=== PATIENT | female | born 1950 | race Caucasian/White ===

== ENCOUNTER → 2017-09-29 | Outpatient (CLI) | payer MEDICARE, MEDICAID, SELFPAY | PROVIDERS: Family Provider Emergency Medicine; Visit Provider Emergency Medicine | DX: Z79.01 Long term (current) use of anticoagulants (principal); I26.99 Other pulmonary embolism without acute cor pulmonale; Z51.81 Encounter for therapeutic drug level monitoring | CPT/HCPCS: 99211; G0463 ==

== ENCOUNTER 2017-10-31 10:14 | Outpatient (CLI) | payer MEDICARE, MEDICAID, SELFPAY ==
[2017-10-31 15:18] LABS: PHA INR Fingerstick 2.1 (0.9-1.1)
== END 2017-10-31 15:41 | disposition home or self-care (01) ==
LOC: ACC 10:19
PROVIDERS: Family Provider Emergency Medicine; PCP Emergency Medicine; Visit Provider Emergency Medicine
DX: I26.99 Other pulmonary embolism without acute cor pulmonale (principal); I82.409 Acute embolism and thrombosis of unspecified deep veins of unspecified lower extremity; Z79.01 Long term (current) use of anticoagulants; Z51.81 Encounter for therapeutic drug level monitoring
CPT/HCPCS: 85610

== ENCOUNTER 2017-12-02 08:21 | Inpatient (IN) | payer MEDICARE, MEDICAID, SELFPAY ==
[2017-12-02] VITALS (15 sets, daily range): BP systolic 116–139; BP diastolic 53–84; PULSE 64–116; RESP 18–26; TEMP 36.6–37.1; O2SAT 84–97; BMI 28.7; BMI 30.6
--- NOTE | 2017-12-02 08:26 | XR_ITS ---
XR chest portable HISTORY: Shortness of air, and cough ITS.REASON: SOA ORDERING PHYSICIAN: Iona Alberto MD PATIENT AGE: 67 years COMPARISON: 07/26/2017 FINDINGS: Mild cardiomegaly without failure. No lobar consolidation or collapse. There are increased markings in both lower lobes probably related to vascular crowding from the portable technique. Cannot exclude underlying infiltrate in the right lung base. Recommend upright PA and lateral chest for further evaluation if the patient tolerates. IMPRESSION: 1. Cardiomegaly without failure. 2. Vascular crowding in the lung bases with possible infiltrate in the right lower lobe. Follow-up recommended with upright PA and lateral chest x-ray.
[2017-12-02 08:40] LABS: Basophils % 0.2 % (0.1-2.0); Eosinophils % 0.1 % (0.1-12.0); Hematocrit 44.4 % (37.0-47.0); Lymphocytes % 5.4 K/mm3 (10-50); Mean Corpuscular HGB Conc 31.6 g/dL (31.8-35.4); Mean Corpuscular Hemoglobin 28.9 pg (27.0-31.2); Mean Corpuscular Volume 91.6 fl (81-99); Mean Platelet Volume 9.2 fl (7.4-10.4); Monocytes # 0.6 K/mm3 (0.1-1.0); Monocytes % 3.5 % (1.7-9.3); Neutrophils # 15.9 K/mm3 (1.8-7.8); Neutrophils % 90.8 % (37.0-80.0); Platelet Count 284 K/mm3 (142-424); Red Blood Count 4.84 M/mm3 (4.20-5.40); Red Cell Distribution Width 14.8 % (11.5-17.5); White Blood Count 17.5 K/mm3 (4.8-10.8)
[2017-12-02 08:45] LABS: MANUAL DIFFERENTIAL MANUAL DIFFERENTIAL (MANUAL DIFF)
--- NOTE | 2017-12-02 08:49 | HMH.EDSOB ---
ED Disposition Clinical Impression: COPD with exacerbation, Chronic obstructive lung disease Disposition: Home, Self-Care Condition on Discharge: Good Instructions: DI for Chronic Obstructive Pulmonary Disease Prescriptions: Albuterol Sulfate [Albuterol 0.083% 2.5mg/3mL neb] 2.5 mg IH Q4HP PRN #30 neb PRN Reason: COPD Amoxicillin/Potassium Clav [Augmentin 875-125 Tablet] 1 tab PO Q12H #20 tab methylPREDNISolone [Medrol] 4 mg PO DAILY #1 tab.ds.pk Referrals: Isaac Chavez MD [Primary Care Provider] - - Critical Care Critical Care Time: No Attestation: On 12/02/17, the high probability of a clinically significant, sudden or life threatening deterioration of the following system(s) required my full and direct attention, intervention and personal management. The time I documented below is in addition to time spent performing reported procedures but includes the following listed in this critical care notation. Medical Decision Making - Medical Records Medical records reviewed: Yes: I reviewed the patient's medical records. Vital Signs: 12/02/17 08:22 12/02/17 09:15 12/02/17 09:22 Temperature 98.2 F 98.3 F Temperature Source Oral Oral Pulse Rate 100 H Pulse Rate [Right Brachial] 116 H 103 H Respiratory Rate 26 H 20 Blood Pressure [Right Arm] 135/84 127/67 Blood Pressure Mean [Right Arm] 101 87 Blood Pressure Source [Right Arm] Automatic Cuff Manual Cuff/ Doppler Blood Pressure Position [Right Arm] Sitting Sitting 02 Sat by Pulse Oximetry 84 L 97 96 Oxygen Delivery Method Room Air Nasal Cannula Nasal Cannula Nasal Cannula Oxygen Flow Rate (LPM) 2 3 - Lab Data Lab results reviewed: Yes: I reviewed the patient's lab results. Lab Results 12/02/17 08:30: WBC 17.5 H, RBC 4.84, Hgb 14.0, Hct 44.4, MCV 91.6, MCH 28.9, MCHC 31.6 L, RDW 14.8, Plt Count 284, MPV 9.2, Neut % (Auto) 90.8 H, Lymph % (Auto) 5.4 L, Crook % (Auto) 3.5, Eos % (Auto) 0.1, Baso % (Auto) 0.2, Neut # (Auto) 15.9 H, Lymph # (Auto) 1.0, Crook # (Auto) 0.6, Eos # (Auto) 0.0, Baso # (Auto) 0.0, Total Counted 100, Neutrophils % (Manual) 91 H, Lymphocytes % (Manual) 7 L, Monocytes % (Manual) 2, Platelet Estimate Normal, RBC Morphology Normal 12/02/17 08:30: Sodium 137, Potassium 4.4, Chloride 102, Carbon Dioxide 27, Anion Gap 12.4, BUN 32 H, Creatinine 1.25 H, Estimated Creat Clear 46, Estimated GFR 42 L, Est GFR ( Amer) 51 L, Glucose 191 H, Calcium 8.8, Total Bilirubin 0.3, AST 23, ALT 38, Alkaline Phosphatase 61, Total Protein 8.2, Albumin 4.2, Globulin 4.0 H, Albumin/Globulin Ratio 1.1 12/02/17 08:43: Lactic Acid 1.9 Result diagrams: 12/02/17 08:30 12/02/17 08:30 Orders (Tests/Meds): ED MEDICATIONS Discontinued Medications Generic Name Dose Route Start Last Admin Trade Name Freq PRN Reason Stop Dose Admin Albuterol/Ipratropium 3 ml 12/02/17 08:55 12/02/17 09:15 Duoneb 3ml Neb IH 12/02/17 08:56 3 ml ONCE ONE Administration Methylprednisolone Sodium Succinate 125 mg 12/02/17 08:55 12/02/17 09:27 Solu-Medrol 125mg/2ml Vial IV 12/02/17 08:56 125 mg ONCE ONE Administration ORDERS Category Date Time Status Blood Culture Stat Micro 12/02/17 08:43 Received - Radiology Data #1 Image(s): Chest Image Reviewed: Yes I reviewed the patient's radiology results, Yes I reviewed the patient's radiology image Preliminary Findings: Abnormal (Medial calcifications not seen on prior, radiology reading requested. PD pattern. Borderline cardiomegaly seen prior) Follow-up 2 view recommended. Patient declines this study today. Results show vascular crowding, perhaps possibility of an infiltrate on the right. - Lyle Inquiry Pt receiving controlled substance: No Medical Decision Making Narrative: Patient oxygenation is now in the mid 90s on her home O2. Resting comfortably. Color is good. No tachypnea. No further wheezing. No further coughing. She feels well enough to go home. Sh
[2017-12-02 08:56] LABS: Alanine Aminotransferase 38 U/L (12-78); Albumin Level 4.2 gm/dL (3.4-5.0); Albumin/Globulin Ratio 1.1 (1.1-1.8); Alkaline Phosphatase 61 U/L (46-116); Anion Gap 12.4 mEq/L (5-15); Aspartate Amino Transferase 23 U/L (15-37); Bilirubin,Total 0.3 mg/dL (0.2-1.0); Blood Urea Nitrogen 32 mg/dL (7-18); Calcium 8.8 mg/dL (8.5-10.1); Carbon Dioxide 27 mmol/L (21.0-32.0); Chloride 102 mmol/L (98-107); Creatinine Clearance Estimated 46 mL/min (0-300); Creatinine,Serum 1.25 mg/dL (0.55-1.02); Estimated Glomerular Filt Rate 42 ml/min (>60); GFR (African American) 51 ML/MIN (>60); Glucose 191 mg/dL (74-106); Potassium 4.4 mmoL/L (3.5-5.1); Sodium 137 mmol/L (136-145); Total Protein,Serum 8.2 gm/dL (6.4-8.2)
[2017-12-02 09:06] LABS: Lactic Acid 1.9 mmol/L (0.4-2.0)
[2017-12-02 09:11] LABS: Lymphocytes % 7 % (10-50); Monocytes % 2 % (2-9); Neutrophils % 91 % (42-76); Platelet Estimate Normal; Total Cells Counted 100
[2017-12-02 09:12] LABS: RBC Morphology Normal
--- NOTE | 2017-12-02 10:35 | PC.NURSE ---
Pt was discharged per ER MD, pt was in a wheelchair being assisted to car by staff accompanied by family. Pt became dyspenic, unable to feel like she could catch her breath. Pt was not on oxygen at this time, pt taken back into ER room to check vital signs, SA02 81% on RA, pt placed on 3L per NC. Pt reported that she has portable oxygen at her home, staff offered for pt to stay in ER room with oxygen on while family go to pt home and her oxygen tank. Pt family stated I think she just needs to be admitted to get her breathing under control. Pt agreed to with her family, ER MD notified and came into room to speak with pt and family, ER MD notified staff that she wishes to admit pt.
[2017-12-02 14:41] LABS: Adenovirus,PCR Not Detected (NotDetected); Bordetella Pertussis Not Detected (NotDetected); Chlamydophila Pneumoniae, PCR Not Detected (NotDetected); Coronavirus 229E Not Detected (NotDetected); Coronavirus NL63 Not Detected (NotDetected); Coronavirus OC43 Not Detected (NotDetected); Coronovirus HKU1,PCR Not Detected (NotDetected); Influenza A, PCR Not Detected (NotDetected); Influenza AH1, 2009 Not Detected (NotDetected); Influenza AH1, PCR Not Detected (NotDetected); Influenza AH3,PCR Not Detected (NotDetected); Influenza B, PCR Not Detected (NotDetected); Mycoplasma Pneumoniae, PCR Not Detected (NotDected); Parainfluenza 1, PCR Not Detected (NotDetected); Parainfluenza 2, PCR Not Detected (NotDetected); Parainfluenza 3, PCR Not Detected (NotDetected); Parainfluenza 4, PCR Not Detected (NotDetected); Respiratory Syncytial Virus Not Detected (NotDetected); Rhinovirus/Enterovirus Not Detected (NotDetected)
[2017-12-02 15:56] LABS: Human Metapneumovirus Detected (NotDetected)
--- NOTE | 2017-12-02 18:57 | PC.NURSE ---
REPORT GIVEN TO JODEE KURTZ RN
--- NOTE | 2017-12-02 21:35 | PC.NURSE ---
PATIENT HAVING PERSISTANT COUGH WITH SOA. SPOKE WITH DR. BENTLEY AT THIS TIME. TORB FOR ROBITUSSIN SYRUP 5 ML EVERY 4-6 HOURS PRN COUGH AND DUONEBS EVERY 1 HOUR PRN SOA. RT NOTIFIED. WILL CONTINUE TO MONITOR.
[2017-12-03] VITALS (15 sets, daily range): BP systolic 109–160; BP diastolic 62–85; PULSE 77–109; RESP 16–91; TEMP 36.5–36.9; O2SAT 78–96
--- NOTE | 2017-12-03 03:00 | PC.NURSE ---
PATIENT YELLING OUT AT THIS TIME. PATIENT WAS SITTING ON SIDE OF BED AND WHEN ASKED WHAT WAS WRONG, SHE STATED THAT SHE WANTED TO GO BACK TO BED. NASAL CANNULA WAS NOTED TO BE ON PATIENT'S FOREHEAD. OXYGEN SATURATION WAS OBTAINED AND WAS FOUND TO BE 78%. NASAL CANNULA REPLACED AND PATIENT ENCOURAGED TO TAKE DEEP, SLOW BREATHS THROUGH NOSE. OXYGEN SAT INCREASED TO 91%. PATIENT REORIENTED. SHE STATED THAT SHE WAS CONFUSED TO WHERE SHE WAS AT AND THAT WAS WHY SHE WAS YELLING OUT. RT CALLED AT THIS TIME FOR PRN NEB TREATMENT. PATIENT ASSISTED TO LAY BACK IN BED WITH HEAD OF BED ELEVATED. WILL CONTINUE TO MONITOR.
--- NOTE | 2017-12-03 08:25 | XR_ITS ---
XR chest 2V COMPARISON: AP upright chest 12/02/2017 HISTORY: Cough TECHNIQUE: PA and lateral chest FINDINGS: Borderline emphysematous changes seen with mild hyperexpansion lung gaspar. Coarse bronchovascular markings are seen in the right infrahilar region and right lower lobe suggestive of a minimal pneumonic infiltrate. The right upper lung field and left lung field are clear. There is mild generalized cardio megaly with aortic tortuosity but there is no evidence of failure. IMPRESSION: Mild COPD, probable right lower lobe bronchopneumonia
--- NOTE | 2017-12-03 08:29 | HMH.HP ---
*Admission Date: 12/02/17 *Chief complaint: cough *History of present illness: this wf with hx of copd and chf with past hx of pe presented to ed with cough and inc resp effort despite op meds and intial rx in ed- by her PCP for days ago, and given a steroid injection. Denies being on a steroid taper. No fever. Cough is nonproductive. She has a chronic umbilical hernia. Vomiting or chest pain. Reports a history of COPD and has recently been placed on a new inhaler per Dr. Chavez, but she cannot recall the name. Dates that she use an albuterol nebulizer treatment just prior to EMS arrival. No further treatment in route. [facility] History I have reviewed the patient's past medical history: Yes Medical History: Reports:: Asthma, Chronic Obstructive Pulmonary Disease (COPD), Hypertension, Pulmonary Embolism Denies:: Diabetes Mellitus Type 1, Diabetes Mellitus Type 2 Other Medical History: Reports: Hypothyroidism Other Surgeries: Yes: Hysterectomy-Total, Other Amputation: No Fractures: No - *Social History Smoking Status: Former smoker Alcohol Intake: never Alcohol Intake Frequency:: other Substance Use Type: denies use Housing: apartment - Psychiatric History Expresses thoughts of harming self/others: None Suicide Plan Description: No Plan *Family Hx:: Heart Attack Review of Systems - Review of Systems Review of systems:: pertinent systems reviewed and negative unless documented below - Constitutional Reports weakness, Denies fever(s) - Eyes Denies change in vision - ENT Reports dry mouth, Denies sore throat - *Cardiovascular Reports shortness of breath, Denies chest pain - *Respiratory Reports cough, Reports shortness of breath, Reports wheezing, Denies coughing up blood - *Gastrointestinal Denies abdominal pain - *Musculoskeletal Denies joint pain, Denies joint swelling - Integumentary/Breasts Denies rash - *Neurologic Denies headache(s) - Psychiatric Denies anxiety Meds Home Medications Medication Instructions Recorded Confirmed Type albuterol sulfate HFA 90 1 puff INHALATION Q6H 11/07/17 12/02/17 History mcg/actuation aerosol inhaler levothyroxine 100 mcg capsule 100 mcg PO DAILY cap 11/07/17 12/02/17 History losartan 100 mg tablet 100 mg PO DAILY 11/07/17 12/02/17 History montelukast 10 mg tablet 10 mg PO QHS 11/07/17 12/02/17 History pravastatin 40 mg tablet 40 mg PO QHS 11/07/17 12/02/17 History spironolactone 25 mg tablet 25 mg PO DAILY 11/07/17 12/02/17 History umeclidinium 62.5 mcg/actuation 1 inh INHALATION Q24H 11/07/17 12/02/17 History blister powder for inhalation Amlodipine Besylate [Norvasc 5mg 5 mg PO DAILY 12/02/17 12/02/17 History tablet] Bisoprol/Hydrochlorothiazide 1 tab PO DAILY 12/02/17 12/02/17 History [Bisoprolol-Hctz 5-6.25 mg Tab] Fluticasone/Umeclidin/Vilanter 1 inh INHALATION ONCE 12/02/17 12/02/17 History [Trelegy Ellipta 100-62.5-25] Omeprazole [Omeprazole 40mg 40 mg PO DAILY 12/02/17 12/02/17 History Capsule] clonazePAM [Klonopin] 0.5 mg PO BID 12/02/17 12/02/17 History Allergies Allergy/AdvReac Type Severity Reaction Status Date / Time lisinopril [LISINOPRIL] Allergy Unknown Verified 12/02/17 08:22 Exam Vital signs and Labs for Last 24 Hours: Temp Pulse Resp BP Pulse Ox 98.2 F 86 22 136/69 96 12/03/17 07:47 12/03/17 07:47 12/03/17 07:47 12/03/17 07:47 12/03/17 07:47 Laboratory Results - last 24 hr 12/02/17 14:15: Chlamy pneumoniae PCR Not detected, Adenovirus (PCR) Not detected, B.parapertussis DNA PCR Not detected, Coronavirus OC43 (PCR) Not detected, Coronavirus HKU1 (PCR) Not detected, Coronavirus 229E (PCR) Not detected, Coronavirus NL63 (PCR) Not detected, Human Metapneumovir PCR Detected A, Influenza A (H1) PCR Not detected, Influ A (H1N1/09) PCR Not detected, Influenza A (H3) PCR Not detected, Influenza Type A (PCR) Not detected, Influenza Type B (PCR) Not detected, M. pneumoniae (PCR) Not
[2017-12-03 09:34] LABS: Anion Gap 12.6 mEq/L (5-15); Blood Urea Nitrogen 32 mg/dL (7-18); Carbon Dioxide 28 mmol/L (21.0-32.0); Chloride 105 mmol/L (98-107); Creatinine Clearance Estimated 62 mL/min (0-300); Creatinine,Serum 0.99 mg/dL (0.55-1.02); Estimated Glomerular Filt Rate 56 ml/min (>60); GFR (African American) 67 ML/MIN (>60); Glucose 225 mg/dL (74-106); Potassium 4.6 mmoL/L (3.5-5.1); Sodium 141 mmol/L (136-145)
--- NOTE | 2017-12-03 10:24 | HMH.PHAVTE ---
[facility] Pharmacy VTE Monitoring - Patient Demographics Admission date: 12/02/17 Report Date: 12/03/17 Time: 10:24 Allergies/Adverse Reactions: Patient Allergies lisinopril [LISINOPRIL] Allergy (Unknown, Verified 12/02/17 08:22) Height: 1.55 m Weight: 73.482 kg Patient Problems: Current Active Problems COPD with exacerbation (Acute) Bronchitis (Acute) Chronic obstructive lung disease (Chronic) - VTE Risk Labs: VTE Related Lab Results Hgb 14.0 g/dL (12.2-16.2) 12/02/17 08:30 Hct 44.4 % (37.0-47.0) 12/02/17 08:30 Plt Count 284 K/mm3 (142-424) 12/02/17 08:30 BUN 32 mg/dL (7-18) H 12/03/17 09:00 Creatinine 0.99 mg/dL (0.55-1.02) D 12/03/17 09:00 Estimated Creat Clear 62 mL/min (0-300) 12/03/17 09:00 Was VTE Risk Assessment Performed: Yes VTE Score: 5 VTE Risk Level: Low Risk - Prophylaxis VTE Prophylaxis Ordered?: Yes Types of VTE Prophylaxis: Pharmacological Location of Applied Device: Not Applicable Pharmacologic Type: Enoxaparin
--- NOTE | 2017-12-03 15:43 | PC.NURSE ---
PATIENT REMOVED ON IV RESULTING IN TWO LARGE SKIN TEARS, NIDIA AND TEGADERM DRESSING APPLIED.
--- NOTE | 2017-12-03 17:07 | PC.NURSE ---
PATIENT HAS BEEN UP IN THE CHAIR MOST OF THE DAY, WITH FAMILY AT BEDSIDE. PATIENT REMOVED HER IV WHICH RESULTED IN TWO LARGE SKIN TEARS TO THE TOP OF HER LEFT HAND.DRESSING APPLIED. PATIENT HAS COMPLAINED OF SHORTNESS OF BREATH TODAY, STATS WERE 97% ON 3 LITERS. LUNGS SOUNDS ARE WHEEZES T/O. VITAL SIGNS ARE STABLE. WILL CONTINUE TO MONITOR.
--- NOTE | 2017-12-03 19:00 | PC.NURSE ---
REPORT GIVEN TO BART HILL
[2017-12-04] VITALS (11 sets, daily range): BP systolic 103–140; BP diastolic 61–74; PULSE 68–93; RESP 18–22; TEMP 36.6–36.9; O2SAT 90–98; BMI 30.6
--- NOTE | 2017-12-04 | CT_ITS ---
CT angio chest COMPARISON: CT angiogram of the chest 10/31/2016 HISTORY: Shortness of breath, history of previous pulmonary emboli TECHNIQUE: Multiaxial scans obtained from the thoracic inlet the hemidiaphragms after rapid injection of IV contrast. Sagittal coronal reformats were evaluated as well. FINDINGS: The lung gaspar are well expanded.. There are findings of mild centrilobular emphysema in both lungs. There is no acute infiltrate. There is satisfactory vascular opacification and there is no CT evidence of pulmonary emboli. There is mild to moderate joint cardio megaly with prominent aortic tortuosity. There is scattered arteriosclerotic calcification of the aortic arch and descending thoracic aorta. There is coronary artery calcification. IMPRESSION: Stable centrilobular emphysematous changes, no CT evidence of pulmonary emboli, other chronic findings as described
--- NOTE | 2017-12-04 04:09 | PC.NURSE ---
PATIENT HAD A VERY RESTLESS NIGHT THIS SHIFT. SHE SEEMS VERY CONFUSED AT TIMES AND VERY RESTLESS. HER FAMILY WAS ASKED IF SHE IS NORMALLY CONFUSED AND THEY SAID NO; HOWEVER, PATIENT DOES LIVE ALONE AND FAMILY IS NOT WITH HER AT ALL TIMES. HER OXYGEN SATURATION HAS BEEN RANGING ANYWHERE FROM 88-98% ON 3.5 LPM NC. PATIENT FINALLY GOT INTO BED AND FELL ASLEEP AROUND 0130 AND HAS BEEN RESTING QUIETLY SINCE. RESPIRATIONS CONTINUE TO BE SHALLOW AND LABORED AT TIMES, BUT HER COUGH HAS GOTTEN BETTER AND LESS FREQUENT. NO OTHER PROBLEMS NOTED AT THIS TIME. VSS. WILL CONTINUE TO MONITOR. SAFETY MEASURES IN PLACE, CALL LIGHT IN REACH.
--- NOTE | 2017-12-04 04:26 | PC.NURSE ---
PT HAS BEEN OFFERED BATHS ON MULTIPLE OCCASIONS, WITH FAMILY BEING AWARE THAT SHE HAS BEEN REFUSING SOME ROUTINE HYGIENE ADL'S. SHE HAS BEEN GIVEN THE OPTION OF A BASIN BATH/PARTIAL BATH WITH THE HELP OF STAFF, BUT HAS STILL REFUSED. PT STILL IN PINK SHIRT THAT SHE PREFERS TO LEAVE ON, AFTER BEING OFFERED A HOPSITAL GOWN THAT SHE DECLINED. PT HAS BEEN INCONTINENT ON MULTIPLE OCCASIONS AND HAS BEEN ASSISTED WITH CLEAN UP TO THE BEST OF STAFF'S ABILITY WITH WHAT THE PT WILL ALLOW. WILL PASS IN REPORT REFUSAL OF BATH AND LINEN CHANGE.
--- NOTE | 2017-12-04 06:00 | PC.NURSE ---
PATIENT SLEPT VERY WELL SINCE AROUND 0130. SHE IS AWAKE AT THIS TIME. INITIALLY PATIENT WAS VERY AGITATED AND ATTEMPTING TO HIT STAFF. NOW PATIENT IS SITTING ON BSC AND IS VERY PLEASANT BUT VERY CONFUSED. SHE STATES THAT SHE THINKS SHE IS IN A HOUSE ON [facility] AND DOES NOT REMEMBER EVEN BEING IN THE HOSPITAL. PATIENT WAS EASILY REORIENTED, BUT IS STILL CONFUSED. WILL CONTINUE TO MONITOR.
--- NOTE | 2017-12-04 08:38 | HMH.ACPN2 ---
Internal Medicine - PN: Subj *Date: 12/04/17 *Time: 08:38 Interval history: doing better but still with sob Exam Vital signs and Labs for Last 24 Hours: Temp Pulse Resp BP Pulse Ox 98.4 F 93 H 22 117/61 90 L 12/04/17 07:45 12/04/17 07:45 12/04/17 07:45 12/04/17 07:45 12/04/17 07:45 Laboratory Results - last 24 hr 12/03/17 09:00: Sodium 141, Potassium 4.6, Chloride 105, Carbon Dioxide 28, Anion Gap 12.6, BUN 32 H, Creatinine 0.99 D, Estimated Creat Clear 62, Estimated GFR 56 L, Est GFR ( Amer) 67 D, Glucose 225 H I & O for Last 24 hours: Intake & Output 12/01/17 12/02/17 12/03/17 12/04/17 11:59 11:59 11:59 11:59 Intake Total 1459 / 1459 2239 / 2239 Output Total 750 / 750 Balance 1459 / 1459 1489 / 1489 Weight 162 lb - Constitutional no acute distress - *Routine HEENT Exam Head: Present: normocephalic Eye: Present: EOMI, PERRL ENT: Present: mucous membranes dry - *Routine Neck Exam Present: supple - *Routine Respiratory Exam Present: prolonged expiratory phase, wheezes. Absent: respiratory distress - *Routine Cardiovascular Exam Present: murmur - *Routine Abdominal Exam Present: soft - *Routine Extremities Exam Present: edema. Absent: calf tenderness - *Routine Skin Exam Present: intact - *Routine Neurological Exam Present: alert, oriented X3, CN II-XII intact - Routine Psychiatric Exam Present: normal affect Assessment and Plan (1) Bronchitis Current visit: Yes Status: Acute Category: Medical Code(s): J40 - Bronchitis, not specified as acute or chronic (2) COPD with exacerbation Current visit: Yes Status: Acute Category: Medical Code(s): J44.1 - Chronic obstructive pulmonary disease with (acute) exacerbation (3) Renal insufficiency Current visit: Yes Status: Acute Category: Medical Code(s): N28.9 - Disorder of kidney and ureter, unspecified
[2017-12-04 09:00] LABS: Anion Gap 5.7 mEq/L (5-15); Blood Urea Nitrogen 31 mg/dL (7-18); Carbon Dioxide 35 mmol/L (21.0-32.0); Chloride 106 mmol/L (98-107); Creatinine Clearance Estimated 60 mL/min (0-300); Creatinine,Serum 1.02 mg/dL (0.55-1.02); Estimated Glomerular Filt Rate 54 ml/min (>60); GFR (African American) 65 ML/MIN (>60); Glucose 248 mg/dL (74-106); Potassium 4.7 mmoL/L (3.5-5.1); Sodium 142 mmol/L (136-145)
--- NOTE | 2017-12-04 18:18 | PC.NURSE ---
PATIENT HAS BEEN UP IN THE CHAIR MOST OF THE DAY. PATIENT BECOMES CONFUSED AT TIMES. SHE IS EATING AND DRINKING BETTER TODAY THAN YESTERDAY , FAMILY IS AT BEDSIDE. SHE IS STATING 94% ON 2 LITERS. LUNG SOUNDS ARE WHEEZES, VITAL SIGNS STABLE. DENIES ANY NEEDS, WILL CONTINUE TO MONITOR.
--- NOTE | 2017-12-04 18:56 | PC.NURSE ---
REPORT GIVEN TO Pooja CABALLERO RN
[2017-12-05] VITALS (10 sets, daily range): BP systolic 123–163; BP diastolic 68–79; PULSE 70–98; RESP 20–22; TEMP 36.3–37.1; O2SAT 87–98
--- NOTE | 2017-12-05 02:07 | PC.NURSE ---
Patient sitting on side of bed at this time. Has soa with minimal exertion such as transferring from bsc to bed. . Denies pain. Has wheezes throughout breathing labored at times. . Has not been as confused this shift. At beginning of shift had a anxiety attack due to daughter did not answer phone. Gave ativan, was effective. Has request another Ativan, still to soon. IV is patent, denies any other needs. Bed locked in low position, side rails up x 2, call valentin within reach. Will continue to monitor.
--- NOTE | 2017-12-05 03:03 | PC.NURSE ---
Late entry: Family had ask opinion about whether patient would be able to live alone as before. Updated them on patient's weakness, soa with minimal exertion, anxiety, and stress incontinence that puts patient a fall risk. Encouraged Family to discuss Living arrangements among themselves and with MD.
--- NOTE | 2017-12-05 04:13 | PC.NURSE ---
rn notified of elevated blood pressure
--- NOTE | 2017-12-05 08:48 | HMH.ACPN ---
Internal Medicine - PN: Subj *Date: 12/05/17 *Time: 08:48 Exam Vital signs and Labs for Last 24 Hours: Temp Pulse Resp BP Pulse Ox 98.8 F 98 H 22 140/74 97 12/05/17 07:41 12/05/17 07:41 12/05/17 07:41 12/05/17 07:41 12/05/17 07:41 Laboratory Results - last 24 hr 12/04/17 08:43: Sodium 142, Potassium 4.7, Chloride 106, Carbon Dioxide 35 H D, Anion Gap 5.7, BUN 31 H, Creatinine 1.02, Estimated Creat Clear 60, Estimated GFR 54 L, Est GFR ( Amer) 65, Glucose 248 H I & O for Last 24 hours: Intake & Output 12/02/17 12/03/17 12/04/17 12/05/17 23:59 23:59 23:59 23:59 Intake Total 1459 / 1459 2119 / 2119 1429 / 1429 2030 / 2030 Output Total 750 / 750 700 / 700 400 / 400 Balance 1459 / 1459 1369 / 1369 729 / 729 1630 / 1630 Weight 73.482 kg 73.482 kg 73.482 kg Assessment and Plan (1) Bronchitis Current visit: Yes Status: Acute Category: Medical Code(s): J40 - Bronchitis, not specified as acute or chronic (2) COPD with exacerbation Current visit: Yes Status: Acute Category: Medical Code(s): J44.1 - Chronic obstructive pulmonary disease with (acute) exacerbation (3) Renal insufficiency Current visit: Yes Status: Acute Category: Medical Code(s): N28.9 - Disorder of kidney and ureter, unspecified The patient's infection will respond to the chosen ABx?: Yes Is the patient receiving the right drug, dose, and route?: Yes Could a more targeted ABx be ordered?: No
--- NOTE | 2017-12-05 09:19 | HMH.ACPN2 ---
Internal Medicine - PN: Subj *Date: 12/05/17 *Time: 09:19 Interval history: pt doing better but still with sig wheezing and resp sx Exam Vital signs and Labs for Last 24 Hours: Temp Pulse Resp BP Pulse Ox 98.8 F 98 H 22 140/74 97 12/05/17 07:41 12/05/17 07:41 12/05/17 07:41 12/05/17 07:41 12/05/17 07:41 I & O for Last 24 hours: Intake & Output 12/02/17 12/03/17 12/04/17 12/05/17 11:59 11:59 11:59 11:59 Intake Total 1459 / 1459 2239 / 2239 3339 / 3339 Output Total 750 / 750 1100 / 1100 Balance 1459 / 1459 1489 / 1489 2239 / 2239 Weight 162 lb 162 lb 0.001 oz - Constitutional no acute distress, obese - *Routine HEENT Exam Head: Present: normocephalic Eye: Present: EOMI, PERRL ENT: Absent: mucous membranes dry - *Routine Neck Exam Present: supple - *Routine Respiratory Exam Present: decreased breath sounds, wheezes - *Routine Cardiovascular Exam Present: RRR, murmur - *Routine Abdominal Exam Present: soft - *Routine Extremities Exam Absent: calf tenderness - *Routine Skin Exam Present: intact - *Routine Neurological Exam Present: alert, CN II-XII intact - Routine Psychiatric Exam Present: normal affect Assessment and Plan (1) Bronchitis Current visit: Yes Status: Acute Category: Medical Code(s): J40 - Bronchitis, not specified as acute or chronic (2) COPD with exacerbation Current visit: Yes Status: Acute Category: Medical Code(s): J44.1 - Chronic obstructive pulmonary disease with (acute) exacerbation (3) Renal insufficiency Current visit: Yes Status: Acute Category: Medical Code(s): N28.9 - Disorder of kidney and ureter, unspecified
--- NOTE | 2017-12-05 10:30 | HMH.PTEV ---
Physical Therapy Evaluation Rehab PT IP Evaluation Start: 12/05/17 09:22 Freq: ONCE Status: Active Protocol: Document 12/05/17 10:27 JUNE (Rec: 12/05/17 10:29 JUNE [id number]) Subjective/History History History This is the initial Physical Therapy evalaution for Zulay Pierre, Pt is a 67 y/o female admitted to [facility] for COPD exacerbation Subjective Subjective pt c/o soa and being hot Rehab PT IP Eval Objective Appearance Patient Behavior Appropriate Patient Orientation Person Place Difficulty following instructions none Speech Pattern Appropriate Ambulation Patient Able to Ambulate Yes Ambulation Observation IP General Gait Pattern Observation Wide Based Gait Ambulation Distance (feet) 30 Ambulation Assistive Device None Balance Ability to Arise Able, uses arms to help Sitting Balance Steady, safe Standing Balance Steady, wide stance Dynamic Sitting Balance Ability Good Dynamic Standing Balance Ability Good Transfers Bed Transfer Ability Independent Chair Transfer Ability Independent Sit to Stand Bed Transfer Ability Independent Sit to Stand Chair Transfer Ability Independent ROM All Extremities PT ROM Status WFL MMT All Extremities PT MMT WFL Rehab PT IP prob,goals,plan Problems Date of Evaluation: 12/05/17 Rehab Potential Rehab Potential Innapropriate for Skilled Therapy Equipment Needs Assistive Devices None / NA Discharge Plan PT Discharge Plan dc to home s/p los G -code Required Yes Eval Complexity Eval Charge Codes 31416 - Moderate Complexity G Codes PT Current Status Self Care PT Current Status Modifier CI-At least 1% but less than 20% impaired, limited or restricted PT Goal Status Self Care PT Goal Status Modifer CI-At least 1% but less than 20% impaired, limited or restricted PHYSICIAN CERTIFICATION: I certify the specified therapy services for Zulay Pierre are required, authorized, and reviewed every 30 days.
--- NOTE | 2017-12-05 13:02 | SW/DCPLANNER ---
Spoke with patient regarding discharge plans while patient and daughter were both present in room. Patient stated that she did not need anything at home and was ready to discharge home. Daughter stated that patient gets around well being alone at home and agreed that no resources were necessary at this time. Patient could possibly discharge home tomorrow. I will follow up at time of discharge to assist with any new orders/needs.
--- NOTE | 2017-12-05 13:46 | DIET.NUTRFU ---
Pt reports she lives alone and is able to prepare her own meals and shop for groceries. She is here with copd exacerbation. On steroids and elev glucose of 191,225 and 248. No dx of diabetes. Diet is Regular with 75-100% po intakes. Hx also of chf. Pt does not restrict salt intake at home. Encouragement provided to limit sugar intake while on steroids, to reduce sodium intake at home. Pt may benefit from daily weights.
[2017-12-05 15:34] LABS: ABG Base Excess 3.5 mmol/L (-2.4-2.3); ABG HCO3 29.2 mmhg (22.0-26.0); ABG Oxygen Saturation 93 % (90-100); ABG PH 7.34 mmol/L (7.35-7.45); ABG TCO2 30.9 mmhg (23-27)
[2017-12-05 15:39] LABS: Allen's Test ACCEPTABLE; Oxygen 3 LPM %; Source R. RADIAL
[2017-12-05 15:40] LABS: ABG PCO2 55.1 mmhg (35.0-45.0)
--- NOTE | 2017-12-05 17:30 | PC.NURSE ---
PATIENT REALLY CONFUSED TODAY, THREATENING TO HIT THE STAFF, REFUSING PROCEDURES. MD NOTIFIED, NEW ORDERS GIVEN. PATIENT IS A LITTLE LESS CONFUSED AT THIS TIME, IT CHANGES FROM ONE MINUTE TO THE NEXT. ABG'S WERE WNL, VITAL SIGNS ARE STABLE. WILL CONTINUE TO MONITOR.
--- NOTE | 2017-12-05 18:59 | PC.NURSE ---
REPORT GIVEN TO ALLISON HILL
[2017-12-06] VITALS (9 sets, daily range): BP systolic 110–145; BP diastolic 58–82; PULSE 68–89; RESP 18–20; TEMP 36.4–36.9; O2SAT 87–95
--- NOTE | 2017-12-06 02:41 | PC.NURSE ---
LAYING IN BED SLEEPING AT THIS TIME. PATIENT PULLED IV OUT EARLIER. WOKE UP VERY CONFUSED, DIDN'T KNOW WHERE SHE WAS. AFTER BEING ORIENTED, RETURNED TO BASELINE. HAS HAD PERIODS OF NOT WEARING OXYGEN TONIGHT. WOULD DROP TO 87 % ON ROOM AIR. ANXIETY HAS BEEN EASIER TO CONTROL THIS SHIFT. BEEN ABLE TO TALK PATIENT THROUGH IT.LUNGS ARE DIMINISHED THROUGHOUT. HAS SOA WITH EXERTION SUCH WALKING FROM BED TO CHAIR. HAVE ENCOURAGED PT TO WALK FURTHER DISTANCE, IS VERY FEARFUL.NEW 20G IV INSERTED IN LEFT FA, PATENT. IS S/L AT THIS TIME DUE TO PT PULLS IV OUT WHEN HOOKED UP. IS DRINKING PLENTY OF WATER. SAFETY ALARM IS ON, BED LOCKED IN LOW POSITION, SIDE RAILS UP X 2. WILL CONTINUE TO MONITOR.
--- NOTE | 2017-12-06 07:32 | PC.NURSE ---
REPORT GIVEN TO Ramo CEE W/C
--- NOTE | 2017-12-06 12:52 | HMH.CONS ---
*Admission Date: 12/02/17 *History of present illness: Ms. Pierre is a 67-year-old woman whom I last saw more than 2 years ago for very severe chronic obstructive pulmonary disease with an asthmatic component. At that time, she had exercise oxygen desaturation and I was concerned about sleep apnea. I felt that many of her persistent symptoms and recurrent exacerbations were related to her home environment. She and her daughter told me about a very fine just in the apartment and the smell of mold. She moved out of that place but symptoms have persisted. She and her daughter told me that she has been in the place which seems quite clean now yet she is much more short of breath. She has had at least several exacerbations since the last visit to me and was admitted here because of a prolonged increase in cough and dyspnea. She does not recall having any fever at the outset and the cough was initially nonproductive. She was treated as an outpatient initially but did not respond and was admitted here on the because of increased dyspnea and hypoxemia. Since admission, she has begun to improve and is now able to expectorate some discolored sputum. You have placed her on Mucomyst in addition to bronchodilators and that has really helped. She currently has no chest pain or significant abdominal symptoms. She is still breathless just getting out of bed. Past medical history: This is significant for Graves' disease which was treated with radioactive iodine, I believe. She has been on thyroid replacement therapy for years. She has a history of fibromyalgia, spinal stenosis and hypertension, hypercholesterolemia. She had a remote past history of gout. She had a hysterectomy in early for cancer. There has apparently been no evidence of any kind of recurrence. She had repair of her right hip in the mid , carpal tunnel release in 1993. She had cholecystectomy a few years ago. She is 3, para 3. She has never had the influenza or pneumococcal vaccines. She has no known exposure to tuberculosis. Allergies: LISINOPRIL caused pruritus. She has no known food allergies. She was tested at the [facility] and was told she is allergic to POLLEN, MOLD, TREES, GRASSES. Social history: Ms. 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 She went on social security disability about 5 years ago because of her respiratory disorder. She has never been and has 3 healthy children. One of her daughters is here today. 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 Another daughter is bipolar. She has 8 healthy grandchildren although some have allergies. Ms. Pierre lives alone in an apartment that has no pets. She watches television on most days. Family history: Her father in his 70s of heart disease and her mother at 52 of a massive heart attack. One brother at the age of 42 of melanoma and one was accidentally shot while deer hunting. One half-sister has diabetes and its complications. There is no family history of any chronic lung disease. Review of systems: General/constitutional: See present illness. Skin: Negative. Eyes: She wears bifocals. ENMT: She knows she needs work on her teeth. Respiratory: See present illness. Cardiovascular: Negative. Gastrointestinal: Negative, and she has never had a colonoscopy. Genitourinary: She now has symptoms of stress incontinence. Musculoskeletal: She has chronic and severe pain in both knees when she walks. Neurological: Negative. Psychiatric: Negative. Immunologic/hematologic: Negative. Lymphatics: Negative. Endocrine: Currently negative. On physical examination, Ms. Pierre is a very pleasant, overweight woman who is in good
--- NOTE | 2017-12-06 13:17 | SW/DCPLANNER ---
Addendum entered by Claritza Fontaine 12/06/17 13:51: Zina from [facility] has contacted me stating that [employer] has stated that patient would have 100% coverage which is $170/day for room and board, $175/day for therapy, and medication cost. Zina has also stated that [facility] has stated that [facility] (refused patient), [facility] (family refuses), and [facility]. At this time patient and family best route is to discharge home with help from daughters and home health. Patient could potentially be ready for discharge tomorrow. Original Note: Visited with patient this AM after patient information has been faxed to [facility] and [facility]. Zoey from [facility] has stated that this patient is not a candidate for skilled care due to PT note stating that patient was not a candidate for skilled rehab due to being independent. However Zina from [facility] has stated that she has sent this patient information into insurance ([place] [employer]) to begin precert. Zina has stated that patient insurance is out of network but she would be willing to accept this patient with patient being liable for their part of coverage that [facility] will not pay. I have informed family of situation and that patients insurance could take several days for approval. Plan has been established that patient will discharge home with home health (prefer [facility]) and patients three daughters help around the house so that patient can discharge home. However family and [facility] will follow up with each other once approval or denial has been established by insurance company. Family has refused sitters list due to three daughters helping patient. Patient agrees with situation. I will also inform Zina from [facility] regarding situation. I will follow up with patient in the AM to assist with any needs/new orders.
--- NOTE | 2017-12-06 13:23 | HMH.ACPN2 ---
Internal Medicine - PN: Subj *Date: 12/06/17 *Time: 13:23 Interval history: doing better but still episodes of confusion and still with sob requiring o2 Exam Vital signs and Labs for Last 24 Hours: Temp Pulse Resp BP Pulse Ox 98.4 F 75 18 145/82 92 L 12/06/17 07:53 12/06/17 11:11 12/06/17 07:53 12/06/17 07:53 12/06/17 07:53 Laboratory Results - last 24 hr 12/05/17 15:28: Specimen Source R. radial, O2 % 3 lpm, ABG pH 7.34 L, ABG pCO2 55.1 H, ABG pO2 67.0 L, ABG HCO3 29.2 H, ABG Total CO2 30.9 H, ABG O2 Saturation 93, ABG Base Excess 3.5 H, Derek Test Acceptable I & O for Last 24 hours: Intake & Output 12/04/17 12/05/17 12/06/17 12/07/17 11:59 11:59 11:59 11:59 Intake Total 2239 / 2239 3339 / 3339 1603 / 1603 Output Total 750 / 750 1100 / 1100 1100 / 1100 Balance 1489 / 1489 2239 / 2239 503 / 503 Weight 162 lb 0.001 oz 170 lb 6 oz - Constitutional no acute distress - *Routine HEENT Exam Head: Present: normocephalic Eye: Present: EOMI, PERRL. Absent: conjunctival icterus ENT: Present: mucous membranes dry - *Routine Neck Exam Absent: JVD - *Routine Respiratory Exam Present: prolonged expiratory phase, wheezes - *Routine Cardiovascular Exam Present: RRR, murmur, S4 - *Routine Abdominal Exam Present: soft - *Routine Extremities Exam Absent: calf tenderness - *Routine Skin Exam Present: dry - *Routine Neurological Exam Present: oriented X3, CN II-XII intact. Absent: altered mental status - Routine Psychiatric Exam Present: anxious Assessment and Plan (1) Bronchitis Current visit: Yes Status: Acute Category: Medical Code(s): J40 - Bronchitis, not specified as acute or chronic (2) COPD with exacerbation Current visit: Yes Status: Acute Category: Medical Code(s): J44.1 - Chronic obstructive pulmonary disease with (acute) exacerbation (3) Renal insufficiency Current visit: Yes Status: Acute Category: Medical Code(s): N28.9 - Disorder of kidney and ureter, unspecified
[2017-12-06 14:07] LABS: Basophils % 0.1 % (0.1-2.0); Eosinophils % 0.3 % (0.1-12.0); Lymphocytes # 0.4 K/mm3 (0.7-4.5); Lymphocytes % 3.5 K/mm3 (10-50); Mean Corpuscular Hemoglobin 28.8 pg (27.0-31.2); Mean Corpuscular Volume 92.9 fl (81-99); Mean Platelet Volume 8.9 fl (7.4-10.4); Monocytes # 0.5 K/mm3 (0.1-1.0); Monocytes % 4.8 % (1.7-9.3); Neutrophils # 9.8 K/mm3 (1.8-7.8); Neutrophils % 91.3 % (37.0-80.0); Platelet Count 256 K/mm3 (142-424); Red Blood Count 4.52 M/mm3 (4.20-5.40); Red Cell Distribution Width 14.7 % (11.5-17.5); White Blood Count 10.7 K/mm3 (4.8-10.8)
[2017-12-06 14:13] LABS: MANUAL DIFFERENTIAL MANUAL DIFFERENTIAL (MANUAL DIFF)
[2017-12-06 14:20] LABS: Anion Gap 7.2 mEq/L (5-15); Blood Urea Nitrogen 24 mg/dL (7-18); Carbon Dioxide 35 mmol/L (21.0-32.0); Chloride 103 mmol/L (98-107); Creatinine Clearance Estimated 65 mL/min (0-300); Creatinine,Serum 0.86 mg/dL (0.55-1.02); Estimated Glomerular Filt Rate 65 ml/min (>60); GFR (African American) 79 ML/MIN (>60); Glucose 289 mg/dL (74-106); Potassium 4.2 mmoL/L (3.5-5.1); Sodium 141 mmol/L (136-145)
[2017-12-06 15:18] LABS: Lymphocytes % 5 % (10-50); Monocytes % 5 % (2-9); Neutrophils % 89 % (42-76); Platelet Estimate Normal; RBC Morphology Normal; Total Cells Counted 100
--- NOTE | 2017-12-06 17:31 | PC.NURSE ---
pt has faint wheezes throughout. normal heart and bowel sounds. pt has been alert and oriented this shift. iv patent. pt has stated anxiety x1 this shift and prn med given. call light in reach will continue to monitor pt condition.
--- NOTE | 2017-12-06 19:00 | PC.NURSE ---
report to be given to john parson
[2017-12-07 03:32] VITALS: O2SAT 87
[2017-12-07 03:58] VITALS: BP 145/76; PULSE 72; RESP 20; TEMP 36.4; O2SAT 97
--- NOTE | 2017-12-07 04:30 | PC.NURSE ---
PT HAS MAINLY SLEPT. INTERMITTENT CONFUSION NOTED DURING NIGHT. CONTINUES ON 3L PER NC. NO COMPLAINTS.
[2017-12-07 06:07] VITALS: PULSE 85; PULSE 90
--- NOTE | 2017-12-07 07:22 | PC.NURSE ---
REPORT GIVEN TO Daisy PAREDES W/C
[2017-12-07 07:33] VITALS: BP 126/61; PULSE 91; RESP 18; TEMP 36.4; O2SAT 94
--- NOTE | 2017-12-07 10:41 | HMH.DCSUM ---
General - General Admission date: 12/02/17 Discharge date: 12/07/17 HPI HPI: Ms. Pierre is a 67-year-old woman whom I last saw more than 2 years ago for very severe chronic obstructive pulmonary disease with an asthmatic component. At that time, she had exercise oxygen desaturation and I was concerned about sleep apnea. I felt that many of her persistent symptoms and recurrent exacerbations were related to her home environment. She and her daughter told me about a very fine just in the apartment and the smell of mold. She moved out of that place but symptoms have persisted. She and her daughter told me that she has been in the place which seems quite clean now yet she is much more short of breath. She has had at least several exacerbations since the last visit to me and was admitted here because of a prolonged increase in cough and dyspnea. She does not recall having any fever at the outset and the cough was initially nonproductive. She was treated as an outpatient initially but did not respond and was admitted here on the because of increased dyspnea and hypoxemia. Since admission, she has begun to improve and is now able to expectorate some discolored sputum. You have placed her on Mucomyst in addition to bronchodilators and that has really helped. She currently has no chest pain or significant abdominal symptoms. She is still breathless just getting out of bed. Past medical history: This is significant for Graves' disease which was treated with radioactive iodine, I believe. She has been on thyroid replacement therapy for years. She has a history of fibromyalgia, spinal stenosis and hypertension, hypercholesterolemia. She had a remote past history of gout. She had a hysterectomy in early for cancer. There has apparently been no evidence of any kind of recurrence. She had repair of her right hip in the mid , carpal tunnel release in 1993. She had cholecystectomy a few years ago. She is 3, para 3. She has never had the influenza or pneumococcal vaccines. She has no known exposure to tuberculosis. Allergies: LISINOPRIL caused pruritus. She has no known food allergies. [facility] and was told she is allergic to POLLEN, MOLD, TREES, GRASSES. Social history: Ms. 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 She went on social security disability about 5 years ago because of her respiratory disorder. She has never been and has 3 healthy children. One of her daughters is here today. 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 Another daughter is bipolar. She has 8 healthy grandchildren although some have allergies. Ms. Pierre lives alone in an apartment that has no pets. She watches television on most days. Family history: Her father in his 70s of heart disease and her mother at 52 of a massive heart attack. One brother at the age of 42 of melanoma and one was accidentally shot while deer hunting. One half-sister has diabetes and its complications. There is no family history of any chronic lung disease. Review of systems: General/constitutional: See present illness. Skin: Negative. Eyes: She wears bifocals. ENMT: She knows she needs work on her teeth. Respiratory: See present illness. Cardiovascular: Negative. Gastrointestinal: Negative, and she has never had a colonoscopy. Genitourinary: She now has symptoms of stress incontinence. Musculoskeletal: She has chronic and severe pain in both knees when she walks. Neurological: Negative. Psychiatric: Negative. Immunologic/hematologic: Negative. Lymphatics: Negative. Endocrine: Currently negative. On physical examination, Ms. Pierre is a very pleasant, o
--- NOTE | 2017-12-07 10:44 | P.DS_ITS ---
General - General Admission date: 12/02/17 Discharge date: 12/07/17 HPI HPI: Ms. Pierre is a 67-year-old woman whom I last saw more than 2 years ago for very severe chronic obstructive pulmonary disease with an asthmatic component. At that time, she had exercise oxygen desaturation and I was concerned about sleep apnea. I felt that many of her persistent symptoms and recurrent exacerbations were related to her home environment. She and her daughter told me about a very fine just in the apartment and the smell of mold. She moved out of that place but symptoms have persisted. She and her daughter told me that she has been in the place which seems quite clean now yet she is much more short of breath. She has had at least several exacerbations since the last visit to me and was admitted here because of a prolonged increase in cough and dyspnea. She does not recall having any fever at the outset and the cough was initially nonproductive. She was treated as an outpatient initially but did not respond and was admitted here on the because of increased dyspnea and hypoxemia. Since admission, she has begun to improve and is now able to expectorate some discolored sputum. You have placed her on Mucomyst in addition to bronchodilators and that has really helped. She currently has no chest pain or significant abdominal symptoms. She is still breathless just getting out of bed. Past medical history: This is significant for Graves' disease which was treated with radioactive iodine, I believe. She has been on thyroid replacement therapy for years. She has a history of fibromyalgia, spinal stenosis and hypertension, hypercholesterolemia. She had a remote past history of gout. She had a hysterectomy in early for cancer. There has apparently been no evidence of any kind of recurrence. She had repair of her right hip in the mid , carpal tunnel release in 1993. She had cholecystectomy a few years ago. She is 3, para 3. She has never had the influenza or pneumococcal vaccines. She has no known exposure to tuberculosis. Allergies: LISINOPRIL caused pruritus. She has no known food allergies. [facility] and was told she is allergic to POLLEN, MOLD, TREES, GRASSES. Social history: Ms. 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 She went on social security disability about 5 years ago because of her respiratory disorder. She has never been and has 3 healthy children. One of her daughters is here today. 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 Another daughter is bipolar. She has 8 healthy grandchildren although some have allergies. Ms. Pierre lives alone in an apartment that has no pets. She watches television on most days. Family history: Her father in his 70s of heart disease and her mother at 52 of a massive heart attack. One brother at the age of 42 of melanoma and one was accidentally shot while deer hunting. One half-sister has diabetes and its complications. There is no family history of any chronic lung disease. Review of systems: General/constitutional: See present illness. Skin: Negative. Eyes: She wears bifocals. ENMT: She knows she needs work on her teeth. Respiratory: See present illness. Cardiovascular: Negative. Gastrointestinal: Negative, and she has never had a colonoscopy. Genitourinary: She now has symptoms of stress incontinence
[2017-12-07 11:20] VITALS: PULSE 74
--- NOTE | 2017-12-07 13:38 | SW/DCPLANNER ---
Addendum entered by Claritza Fontaine 12/07/17 16:43: [facility] has accepted patient to their services and will begin services in the AM. I have made daughter aware of situation and informed her that patient should be receiving a phone call this evening or in the AM from a nurse with [facility] to plan an appointment to come to patients house. Original Note: Addendum entered by Claritza Fontaine 12/07/17 16:36: Received notification from Sheridan at [facility] that there has been a mistake and she can not accept this patient due to patients insurance. Patient information has also been faxed to [facility] , which has also denied this patient home health services due to insurance. Information has also been faxed to [facility]...I will follow up with [facility] to see if they can accept this patient to their services. I have called and informed patients daughter (Dorinda) of this situation. Original Note: Received order for home health services for [facility], PT/OT for this patient. Patient has requested that information to be faxed to [facility]. I have spoke with Sheridan to confirm that patient information has been received and services will begin for this patient tomorrow. Patient has discharged home today.
== END 2017-12-07 12:55 | disposition home or self-care (01) | DRG 192 ==
LOC: ER 11:43 → 2ND 12:37
PROVIDERS: Admitting Provider Emergency Medicine; Emergency Provider Emergency Medicine; Family Provider Emergency Medicine; PCP Emergency Medicine; Visit Provider Emergency Medicine
DX: J44.0 Chronic obstructive pulmonary disease with (acute) lower respiratory infection (principal); B97.81 Human metapneumovirus as the cause of diseases classified elsewhere; E89.0 Postprocedural hypothyroidism; J44.1 Chronic obstructive pulmonary disease with (acute) exacerbation; G47.33 Obstructive sleep apnea (adult) (pediatric); I10 Essential (primary) hypertension; Z87.891 Personal history of nicotine dependence; Z86.711 Personal history of pulmonary embolism; J20.8 Acute bronchitis due to other specified organisms
CPT/HCPCS: 36415; 71045; 71046; 71275; 80048; 80053; 82803; 83605; 85007; 85025; 87040; 87486; 87581; 87633; 87798; 94640; 94761; 96365; 96374; 97162; 99284; J0456; Q9967

== ENCOUNTER → 2017-12-13 11:06 | Outpatient (CLI) | payer MEDICARE, MEDICAID, SELFPAY ==
--- NOTE | 2017-12-13 11:10 | NVE_ITS ---
Venous Exam Indications: 729.5 Pain in limb. IMPRESSIONS No evidence of deep or superficial vein thrombosis involving the left lower extremity History: Left lower extremity pain. Swelling of the left lower extremity. PMH: Deep vein thrombosis. Patient had a DVT in PTV 11/01/2016. She states she was taking Warfarin until November 2017. Risk factors: Hypertension. Obese. Left lower extremity venous duplex evaluation. Doppler flow study including spectral analysis, color and romero scale imaging. Location: Vascular laboratory. Patient status: Outpatient. Tables: Venous flow and imaging: + + + + Location Overall Flow properties + + + + Left common femoral Patent Normal phasicity; spontaneous; normal augmentation; compressible + + + + Left saphenofemoral junction Patent Compressible + + + + Left profunda femoral Patent Compressible + + + + Left femoral Patent Normal phasicity; spontaneous; normal augmentation; compressible + + + + Left greater saphenous Patent Normal phasicity; spontaneous; normal augmentation; compressible + + + + Left popliteal Patent Normal phasicity; spontaneous; normal augmentation; compressible + + + + Left posterior tibial Patent Compressible + + + + Left peroneal Difficult study + + + + Left gastrocnemius Patent Compressible + + + + Left soleal Patent Compressible + + + + (Report amended ) Electronically signed by: Derek Muñoz [id number]
== END ==
PROVIDERS: Family Provider Emergency Medicine; PCP Emergency Medicine; Visit Provider Emergency Medicine
DX: M79.605 Pain in left leg; M79.89 Other specified soft tissue disorders
CPT/HCPCS: 93971

== ENCOUNTER → 2018-03-20 15:43 | Outpatient (REF) | payer MEDICARE, MEDICAID, SELFPAY ==
[2018-03-20 18:52] LABS: Blood Urea Nitrogen 32 mg/dL (7-18); Calcium 8.9 mg/dL (8.5-10.1); Carbon Dioxide 28 mmol/L (21.0-32.0); Chloride 106 mmol/L (98-107); Creatinine,Serum 1.16 mg/dL (0.55-1.02); Estimated Glomerular Filt Rate 46 ml/min (>60); Free T4 (Free Thyroxine) 1.01 ng/dl (0.76-1.46); GFR (African American) 56 ML/MIN (>60); Glucose 207 mg/dL (74-106); Sodium 143 mmol/L (136-145); Thyroid Stimulating Hormone 0.12 uIU/ml (0.358-3.740)
[2018-03-22 12:24] LABS: Hemoglobin A1C 6.4 % (0.0-7.0)
== END ==
LOC: LAB 15:43
PROVIDERS: Visit Provider Emergency Medicine
DX: I10 Essential (primary) hypertension (principal); R06.02 Shortness of breath; Z79.899 Other long term (current) drug therapy
CPT/HCPCS: 80048; 83036; 84439; 84443

== ENCOUNTER → 2018-08-08 13:01 | Outpatient (POV) | payer MEDICARE, MEDICAID, SELFPAY | PROVIDERS: Visit Provider Internal Medicine | DX: Z00.00 Encounter for general adult medical examination without abnormal findings (principal) ==

== ENCOUNTER → 2018-08-28 11:32 | Outpatient (CLI) | payer MEDICARE, MEDICAID, SELFPAY ==
[2018-08-28 13:30] VITALS: BP 120/75; BP 148/80; PULSE 82; PULSE 90; RESP 18; RESP 26; O2SAT 79; O2SAT 91
[2018-08-28 14:33] VITALS: PULSE 84; PULSE 90
== END ==
PROVIDERS: PCP Emergency Medicine; Visit Provider Internal Medicine
DX: R06.02 Shortness of breath (principal); J44.9 Chronic obstructive pulmonary disease, unspecified
CPT/HCPCS: 94060; 94618; 94640; 94727; 94729

== ENCOUNTER → 2018-12-15 13:50 | Outpatient (CLI) | payer MEDICARE, MEDICAID, SELFPAY ==
--- NOTE | 2018-12-15 13:51 | CA_ITS ---
PROCEDURE: 2-D M-mode and color Doppler study INDICATIONS FOR THE TEST: Chest pain + COPD+ Heart Murmur Tobacco Smoking Palpitations Fatigue Syncope Edema Hypertension+Diabetes Mellitus Rheumatic Fever SOB+MERA Obesity+Hyperlipidemia+ Family History HD Additional History BILLY, HX PE, PRE-OP COLONOSCOPY PATIENT INFORMATION HEIGHT: 60 WEIGHT:153 GENDER: Female B/P:115/72 2-D/M-MODE INTERPRETATION: 2-D MEASUREMENTS OBSERVED VALUES IN CMS Right Ventricular Dimension (RVDd) 3.5 Interventricular Septum (Thickness)(IVsd) 1.3 Left Ventricular Internal Dimensions(LVIDd) 3.5 Left Ventricular Posterior Wall (Thickness)(LVPWd) 1.0 Aortic Root 3.2 Aortic Cusp Separation 1.7 Left Atrial Dimensions (LAD) 3.7 2D 1. Left atrium is mildly enlarged, left ventricle is normal size, mild concentric left ventricular hypertrophy, visually estimated ejection fraction 55% with no regional wall motion abnormality. 2. The right atrium and right ventricle are moderately enlarged with normal contractility. 3. The aortic valve is minimally thickened and calcified. Mild restriction the leaflet mobility. 4. The mitral and tricuspid valvular grossly normal. 5. The pulmonic valve is poorly present. 6. No significant pericardial effusion noted. DOPPLER INTERROGATION: Doppler interrogation of the aortic, mitral and tricuspid valvular presence of mildly increased velocities across the aortic valve representing mild aortic stenosis, the mean gradient is 8 mmHg. There is mild aortic insufficiency seen. Grade 1 diastolic dysfunction seen with tissue Doppler evidence of raised left atrial pressure, mild mitral and tricuspid regurgitation, tricuspid and jet velocity is inadequate for calculation of the right ventricular systolic pressure. CONCLUSION: 1. Biatrial enlargement, normal left ventricular size, mild concentric left ventricular hypertrophy, visually estimated ejection fraction 55% with no regional wall abnormality, grade 1 diastolic dysfunction seen with tissue Doppler evidence of raised left atrial pressure. 2. Moderately enlarged right ventricle with normal contractility. 3. Thickened and calcified aortic valve with mild aortic stenosis, there is mild aortic insufficiency present. 4. Mild mitral and tricuspid regurgitation 5. No significant pericardial effusion noted.
== END ==
PROVIDERS: PCP Emergency Medicine; Visit Provider Internal Medicine Cardiovascular Disease
DX: E66.9 Obesity, unspecified (principal); G47.33 Obstructive sleep apnea (adult) (pediatric); I10 Essential (primary) hypertension; J44.9 Chronic obstructive pulmonary disease, unspecified; R06.00 Dyspnea, unspecified; Z86.711 Personal history of pulmonary embolism; Z87.891 Personal history of nicotine dependence
CPT/HCPCS: 36415; 83880; 93306

== ENCOUNTER → 2019-01-02 14:34 | Outpatient (POV) | payer MEDICARE, MEDICAID, SELFPAY | PROVIDERS: Visit Provider Internal Medicine | DX: Z00.00 Encounter for general adult medical examination without abnormal findings (principal) ==

== ENCOUNTER → 2019-01-02 15:37 | Outpatient (CLI) | payer MEDICARE, MEDICAID, SELFPAY ==
[2019-01-02 18:46] LABS: Anion Gap 14.1 mEq/L (5-15); Blood Urea Nitrogen 19 mg/dL (7-18); Calcium 9.5 mg/dL (8.5-10.1); Carbon Dioxide 30 mmol/L (21.0-32.0); Chloride 104 mmol/L (98-107); Creatinine,Serum 0.92 mg/dL (0.55-1.02); Estimated Glomerular Filt Rate 60 ml/min (>60); GFR (African American) 73 ML/MIN (>60); Glucose 102 mg/dL (74-106); Potassium 4.1 mmoL/L (3.5-5.1); Sodium 144 mmol/L (136-145)
== END ==
PROVIDERS: Visit Provider Internal Medicine Cardiovascular Disease
DX: E66.9 Obesity, unspecified (principal); G47.33 Obstructive sleep apnea (adult) (pediatric); I10 Essential (primary) hypertension; J44.9 Chronic obstructive pulmonary disease, unspecified; R06.00 Dyspnea, unspecified; Z86.711 Personal history of pulmonary embolism; Z87.891 Personal history of nicotine dependence
CPT/HCPCS: 36415; 80048

== ENCOUNTER → 2019-01-18 14:03 | Outpatient (CLI) | payer MEDICARE, MEDICAID, SELFPAY ==
--- NOTE | 2019-01-18 14:06 | CT_ITS ---
CT lung screening EXAM: CT LUNG LOW DOSE WO CONTRAST HISTORY: 75 pack year smoking history asymptomatic for lung cancer ITS.REASON: HX TOBACCO USE ORDERING PHYSICIAN: Phillip Allen MD PATIENT AGE: 69 years COMPARISON: None TECHNIQUE: The exam was performed on a GE Light Speed [address] scanner using 2.90 mGy CTDI. A low dose helical CT CHEST was performed on a multi-detector scanner. All CT scans at the facility use one or more dose reduction, viz: automated exposure control, ma/kV adjustment per patient size (including targeted exams where dose is matched to indication, i.e. head), or iterative reconstruction technique. The LDCT was performed in a facility that meets the criteria for the screening program. Data regarding this exam was submitted to ACR which is an approved registry. The order for this exam indicates that it came as a result of a lung cancer screening counseling shard decision-making visit that included all the elements required of such a visit including smoking cessation. The radiologist interpreting this exam meets the [facility] criteria for the LDCT lung cancer screening program. The exam is reported using the Lung-RADS classification scale and reported to the ACR registry. NOTE: This study was performed for the specific purposes of lung cancer screening and is not an alternative to diagnostic chest CT. RADIATION DOSE: CTDI vol(CT dose Index-volume) = 2.90mG DLP (Dose Length Product) = 96.38 mGcm FINDINGS: COPD/centrilobular emphysema no suspicious pulmonary nodules. There is a well-circumscribed 4 mm nodule in left lung base medially unchanged. Parenchymal fibrotic changes are present in the right middle lobe medially and inferiorly. There are coronary artery calcifications. IMPRESSION: 1. Lung RADS Category: 2, benign 2. Other findings: COPD, centrilobular emphysema, coronary artery calcifications RECOMMENDATIONS: 12 month LDCT follow-up
== END ==
PROVIDERS: PCP Internal Medicine; Visit Provider Internal Medicine
DX: Z12.2 Encounter for screening for malignant neoplasm of respiratory organs (principal); Z87.891 Personal history of nicotine dependence

== ENCOUNTER → 2019-01-30 14:29 | Outpatient (CLI) | payer MEDICARE, MEDICAID, SELFPAY ==
[2019-01-30 16:10] LABS: T4 (Thyroxine) 10.5 ug/dl (4.7-13.3); Thyroid Stimulating Hormone 0.31 uIU/ml (0.358-3.740)
== END ==
PROVIDERS: Visit Provider Emergency Medicine
DX: E03.9 Hypothyroidism, unspecified (principal); I10 Essential (primary) hypertension
CPT/HCPCS: 36415; 84436; 84443

== ENCOUNTER → 2019-03-12 09:16 | Outpatient (CLI) | payer MEDICARE, MEDICAID, SELFPAY ==
--- NOTE | 2019-03-12 09:20 | MM_ITS ---
MM Dig screening mamm BI w/CAD CAD Screening COMPARISON: Digital mammograms with CAD 01/27/2017 INDICATION: There is no personal or family history of breast cancer TECHNIQUE: Standard CC and MLO images were obtained. R2 CAD reviewed. FINDINGS: Scattered fiber glandular densities are seen in both breast. There are few benign-appearing micro and macrocalcifications in each breast. There are stable tiny nodular densities in each breast and previous ultrasound examinations of both breast in January 2017 showed tiny benign-appearing cysts there is faint arterial calcification in each breast. There is no suspicious lesion in either breast and there are no suspicious microcalcifications. IMPRESSION: Fibrofatty parenchyma with no suspicious lesion seen BI-RADS Category: 2 Benign Finding(s) RECOMMENDED FOLLOW-UP: 1YR - 1 YEAR FOLLOW-UP (A letter has been sent to the patient regarding results of the study.)
== END ==
PROVIDERS: PCP Emergency Medicine; Visit Provider Emergency Medicine
DX: Z12.31 Encounter for screening mammogram for malignant neoplasm of breast (principal)
CPT/HCPCS: 77067

== ENCOUNTER → 2019-05-01 11:06 | Outpatient (POV) | payer MEDICARE, MEDICAID, SELFPAY | PROVIDERS: Visit Provider Internal Medicine | DX: Z00.00 Encounter for general adult medical examination without abnormal findings (principal) ==

== ENCOUNTER → 2019-06-27 09:49 | Outpatient (CLI) | payer MEDICARE, MEDICAID, SELFPAY ==
[2019-06-27 11:35] VITALS: PULSE 72; PULSE 79
== END ==
PROVIDERS: PCP Emergency Medicine; Visit Provider Internal Medicine
DX: R06.02 Shortness of breath (principal); J43.9 Emphysema, unspecified
CPT/HCPCS: 94060; 94640; 94726; 94729

== ENCOUNTER → 2019-07-10 09:36 | Outpatient (POV) | payer MEDICARE, MEDICAID, SELFPAY | PROVIDERS: Visit Provider Internal Medicine | DX: Z00.00 Encounter for general adult medical examination without abnormal findings (principal) ==

== ENCOUNTER → 2019-07-13 07:50 | Outpatient (CLI) | payer MEDICARE, MEDICAID, SELFPAY ==
[2019-07-13 08:24] LABS: Basophils # 0.1 K/mm3 (0-0.2); Eosinophils # 0.5 K/mm3 (0.0-0.4); Eosinophils % 6.2 % (0.1-12.0); Hematocrit 42.2 % (37.0-47.0); Hemoglobin 13.4 g/dL (12.2-16.2); Lymphocytes # 1.4 K/mm3 (0.7-4.5); Lymphocytes % 16.4 % (10-50); Mean Corpuscular HGB Conc 31.8 g/dL (31.8-35.4); Mean Corpuscular Hemoglobin 28.7 pg (27.0-31.2); Mean Corpuscular Volume 90.4 fl (81-99); Monocytes # 0.5 K/mm3 (0.1-1.0); Monocytes % 5.7 % (1.7-9.3); Neutrophils # 5.9 K/mm3 (1.8-7.8); Neutrophils % 70.7 % (37.0-80.0); Platelet Count 254 K/mm3 (142-424); Red Blood Count 4.66 M/mm3 (4.20-5.40); Red Cell Distribution Width 15.5 % (11.5-17.5); White Blood Count 8.3 K/mm3 (4.8-10.8)
[2019-07-13 09:32] LABS: Alanine Aminotransferase 22 U/L (12-78); Albumin Level 3.9 gm/dL (3.4-5.0); Albumin/Globulin Ratio 1.4 (1.1-1.8); Alkaline Phosphatase 110 U/L (46-116); Anion Gap 14.2 mEq/L (5-15); Aspartate Amino Transferase 10 U/L (15-37); Bilirubin,Total 0.5 mg/dL (0.2-1.0); Blood Urea Nitrogen 22 mg/dL (7-18); Calcium 9.3 mg/dL (8.5-10.1); Carbon Dioxide 28 mmol/L (21.0-32.0); Chloride 106 mmol/L (98-107); Cholesterol 188 mg/dL (140-200); Creatinine,Serum 0.88 mg/dL (0.55-1.02); Estimated Glomerular Filt Rate 63 ml/min (>60); GFR (African American) 77 ML/MIN (>60); Globulin 2.8 gm/dl (1.3-3.2); Glucose 87 mg/dL (74-106); HDL Cholesterol 47 mg/dL (29-89); LDL Cholesterol 93 mg/dL (0-130); Potassium 4.2 mmoL/L (3.5-5.1); Sodium 144 mmol/L (136-145); T4 (Thyroxine) 10.3 ug/dl (4.7-13.3); Thyroid Stimulating Hormone 0.37 uIU/ml (0.358-3.740); Total Protein,Serum 6.7 gm/dL (6.4-8.2); Triglycerides 239 mg/dL (30-200); VLDL Cholesterol 48 mg/dL (0-40)
[2019-07-14 12:32] LABS: Vitamin D 25 Hydroxy 14.4 ng/mL (30.0-100.0)
== END ==
PROVIDERS: Visit Provider Nurse Practitioner Family
DX: E07.9 Disorder of thyroid, unspecified (principal); R10.9 Unspecified abdominal pain; E66.9 Obesity, unspecified; R19.7 Diarrhea, unspecified; E55.9 Vitamin D deficiency, unspecified
CPT/HCPCS: 36415; 80053; 80061; 82652; 84436; 84443; 85025

== ENCOUNTER → 2019-08-23 10:02 | Outpatient (POV) | payer MEDICARE, MEDICAID, SELFPAY | PROVIDERS: Visit Provider Dentist | DX: Z00.00 Encounter for general adult medical examination without abnormal findings (principal) ==

== ENCOUNTER → 2020-02-05 17:13 | Outpatient (CLI) | payer MEDICARE, MEDICAID, SELFPAY ==
[2020-02-05 18:23] LABS: Basophils # 0.1 K/mm3 (0-0.2); Basophils % 1.6 % (0.1-2.0); Eosinophils # 0.8 K/mm3 (0.0-0.4); Hematocrit 43.4 % (37.0-47.0); Hemoglobin 13.9 g/dL (12.2-16.2); Lymphocytes # 1.9 K/mm3 (0.7-4.5); Lymphocytes % 21.9 % (10-50); Mean Corpuscular Volume 90.6 fl (81-99); Mean Platelet Volume 10.6 fl (7.4-10.4); Monocytes # 0.6 K/mm3 (0.1-1.0); Monocytes % 6.4 % (1.7-9.3); Neutrophils # 5.3 K/mm3 (1.8-7.8); Neutrophils % 61.1 % (37.0-80.0); Platelet Count 241 K/mm3 (142-424); Red Blood Count 4.79 M/mm3 (4.20-5.40); Red Cell Distribution Width 14.6 % (11.5-17.5); White Blood Count 8.7 K/mm3 (4.8-10.8)
[2020-02-05 18:25] LABS: Chloride 103 mmol/L (98-107); Potassium 4.5 mmoL/L (3.5-5.1); Sodium 140 mmol/L (136-145)
[2020-02-05 18:27] LABS: Blood Urea Nitrogen 16 mg/dl (7-17)
[2020-02-05 18:28] LABS: Alanine Aminotransferase 21 U/L (12-78); Albumin/Globulin Ratio 1.4 (1.1-1.8); Alkaline Phosphatase 91 U/L (38-126); Anion Gap 12.5 mEq/L (5-15); Aspartate Amino Transferase 31 U/L (14-36); Bilirubin,Total 0.5 mg/dl (0.2-1.3); Calcium 9.3 mg/dl (8.4-10.2); Carbon Dioxide 29 mmol/L (22.0-30.0); Cholesterol 170 mg/dl (140-200); Estimated Glomerular Filt Rate 71 ml/min (>60); GFR (African American) 85 ML/MIN (>60); Globulin 2.8 g/dL (1.3-3.2); Glucose 105 mg/dl (74-100); Total Protein,Serum 6.8 g/dl (6.3-8.2); Triglycerides 205 mg/dl (30-150); VLDL Cholesterol 41 mg/dL (0-40)
[2020-02-05 18:29] LABS: Chol/HDL Ratio 3.3 (1-3.5); HDL Cholesterol 51 mg/dl (40-60)
[2020-02-05 18:40] LABS: Direct LDL Cholesterol 110.67 mg/dL (100-129)
[2020-02-05 18:45] LABS: T4 (Thyroxine) 10.5 ug/dl (5.53-11.0)
[2020-02-05 18:59] LABS: Thyroid Stimulating Hormone 0.46 uIU/mL (0.465-4.68)
[2020-02-08 09:22] LABS: Vitamin D 25 Hydroxy 29.3 ng/mL (30.0-100.0)
== END ==
PROVIDERS: Visit Provider Physician Assistant
DX: I10 Essential (primary) hypertension (principal); E55.9 Vitamin D deficiency, unspecified
CPT/HCPCS: 80053; 80061; 82652; 84436; 84443; 85025

== ENCOUNTER → 2020-05-02 11:34 | Outpatient (CLI) | payer MEDICARE, MEDICAID, SELFPAY ==
--- NOTE | 2020-05-02 11:35 | CA_ITS ---
APPROVED REPORT Left Lower Extremity Venous Study for DVT. Manager Assisted Living: SHARON Indications Lower Extremity Edema: Left History of Smoking Lower Extremity Swelling: Left edema of leg. History of Right DVT/PE. COPD. Patient denies trauma. Risk Factors Prior Phlebitis/DVT History of Smoking Patient had a DVT/PE 2017 Vein Imaging CFV (L): compressive, spontaneous, phasic, augmentation FEM (L): compressive, spontaneous, phasic, augmentation POP (L): compressive, spontaneous, phasic, augmentation PTV (L): Compressible GSV (L): compressive, spontaneous, phasic, augmentation SSV (L): Compressible Peroneals (L):Compressible GAS (L): Compressible Findings No evidence of DVT or superficial thrombophlebitis in the veins scanned of the left lower extremity. Conclusion No evidence of DVT or superficial thrombophlebitis in the veins scanned of the left lower extremity. Electronically signed by : Derek Muñoz MD 05/02/2020 17:38:04
== END ==
PROVIDERS: PCP Emergency Medicine; Visit Provider Physician Assistant
DX: R60.0 Localized edema (principal)
CPT/HCPCS: 93971

== ENCOUNTER → 2020-10-07 18:25 | Outpatient (CLI) | payer MEDICARE, MEDICAID, SELFPAY ==
[2020-10-07 19:39] LABS: Alanine Aminotransferase 23 U/L (12-78); Albumin Level 4.1 g/dl (3.5-5.0); Albumin/Globulin Ratio 1.4 (1.1-1.8); Alkaline Phosphatase 101 U/L (38-126); Anion Gap 11.4 mEq/L (5-15); Aspartate Amino Transferase 30 U/L (14-36); Bilirubin,Total 0.6 mg/dl (0.2-1.3); Blood Urea Nitrogen 18 mg/dl (7-17); Calcium 9.2 mg/dl (8.4-10.2); Carbon Dioxide 30 mmol/L (22.0-30.0); Chloride 103 mmol/L (98-107); Estimated Glomerular Filt Rate 62 ml/min (>60); GFR (African American) 74 ML/MIN (>60); Glucose 116 mg/dl (74-100); Lipase 43 U/L (23-300); Potassium 4.4 mmoL/L (3.5-5.1); Sodium 140 mmol/L (136-145); Total Protein,Serum 7.1 g/dl (6.3-8.2)
[2020-10-07 19:53] LABS: T4 (Thyroxine) 11.1 ug/dl (5.53-11.0)
[2020-10-07 20:07] LABS: Thyroid Stimulating Hormone 0.74 uIU/mL (0.465-4.68)
== END ==
PROVIDERS: Visit Provider Family Medicine
DX: E03.9 Hypothyroidism, unspecified (principal); R10.9 Unspecified abdominal pain
CPT/HCPCS: 80053; 83690; 84436; 84443

== ENCOUNTER → 2020-10-22 13:03 | Outpatient (CLI) | payer MEDICARE, MEDICAID, SELFPAY ==
--- NOTE | 2020-10-22 13:03 | CT_ITS ---
PROCEDURE: CT ABDOMEN WO CON CLINICAL HISTORY: ventral hernia R periumbilical hernia Abd pain COMPARISON: CT LUNGSCREEN CT lung screening from 01/18/2019 TECHNIQUE: Axial images obtained with sagittal and coronal reformats. All CT scans at the facility use one or more dose reduction, viz: automated exposure control, ma/kV adjustment per patient size (including targeted exams where dose is matched to indication, i.e. head), or iterative reconstruction technique. FINDINGS: There are atelectatic or fibrotic changes in the right lung base. There has been a prior cholecystectomy. The liver, spleen, adrenal glands, pancreas, have an unremarkable appearance. There is a 1.8 cm right renal cyst exophytic in nature. Hypodensity is present in the left kidney posteriorly and may also be due to a cyst at 1.2 cm. No renal or ureteral calculi. No hydronephrosis. Atherosclerotic changes involve the abdominal aorta and iliac vessels. No evidence of aneurysm. There is a right sided periumbilical hernia which contains fat. The hernia orifice is approximately 2 cm in with. There is a small umbilical hernia also noted containing fat. Incidental note made of colonic diverticulosis. There is mild thickening of the transverse and descending colon which is nonspecific. There is mild wedging of T12 which is old IMPRESSION: 1. Small right periumbilical hernia containing fat with a tiny umbilical hernia also noted containing fat. 2. Other nonacute findings as described above. Dictated by: Derek Muñoz MD 10/23/2020 10:04 Derek Muñoz MD in [place] 10/23/2020 10:04
== END ==
PROVIDERS: PCP Emergency Medicine; Visit Provider Family Medicine
DX: R10.9 Unspecified abdominal pain (principal)
CPT/HCPCS: 74150

== ENCOUNTER → 2020-12-05 12:59 | Outpatient (CLI) | payer MEDICARE, MEDICAID, SELFPAY ==
--- NOTE | 2020-12-05 14:16 | PC.NURSE ---
PFT and 6 Minute walk completed. Albuterol 0.083% given via HHN to patient per written protocol, Pt tolerated tx well.
--- NOTE | 2020-12-05 14:54 | CT_ITS ---
PROCEDURE: CT LUNG SCREENING CLINICAL INDICATION: Lung cancer screening Seventy-five pack year smoking history COMPARISON: CT AGCHEST CT angio chest from 12/04/[address] lung screening from 01/18/2019 TECHNIQUE: The exam was performed on a GE Light Speed [address] scanner using 2.90 mGy CTDI. A low dose helical CT CHEST was performed on a multi-detector scanner. All CT scans at the facility use one or more dose reduction, viz: automated exposure control, ma/kV adjustment per patient size (including targeted exams where dose is matched to indication, i.e. head), or iterative reconstruction technique. The LDCT was performed in a facility that meets the criteria for the screening program. Data regarding this exam was submitted to ACR which is an approved registry. The order for this exam indicates that it came as a result of a lung cancer screening counseling shard decision-making visit that included all the elements required of such a visit including smoking cessation. The radiologist interpreting this exam meets the CMS criteria for the LDCT lung cancer screening program. The exam is reported using the Lung-RADS classification scale and reported to the ACR registry. NOTE: This study was performed for the specific purposes of lung cancer screening and is not an alternative to diagnostic chest CT. RADIATION DOSE: CTDI vol(CT dose Index-volume) = 2.90mG DLP (Dose Length Product) = 97.16 mGcm FINDINGS: COPD. There is a 3 mm noncalcified nodule in the right upper lobe posteriorly. No suspicious nodules are evident. No effusions or infiltrates. OTHER FINDINGS: Calcification medial aspect of the right breast.. Old left-sided rib fractures IMPRESSION: Lung-RADS Category 2 Benign Appearance or Behavior Follow-up: Continue annual screening with LDCT in 12 months Dictated by: Derek Muñoz MD 12/08/2020 11:39 Derek Muñoz MD in [place] 12/08/2020 11:39
== END ==
PROVIDERS: PCP Emergency Medicine; Visit Provider Internal Medicine Pulmonary Disease
DX: Z87.891 Personal history of nicotine dependence; Z12.2 Encounter for screening for malignant neoplasm of respiratory organs; R06.02 Shortness of breath
CPT/HCPCS: 36415; 71271; 80048; 94060; 94618; 94726; 94729

== ENCOUNTER → 2020-12-05 15:54 | Outpatient (CLI) | payer MEDICARE, MEDICAID, SELFPAY ==
[2020-12-05 17:35] LABS: Anion Gap 11.1 mEq/L (5-15); Blood Urea Nitrogen 14 mg/dl (7-17); Calcium 9.6 mg/dl (8.4-10.2); Carbon Dioxide 29 mmol/L (22.0-30.0); Chloride 104 mmol/L (98-107); Estimated Glomerular Filt Rate 55 ml/min (>60); GFR (African American) 66 ML/MIN (>60); Glucose 92 mg/dl (74-100); Potassium 4.1 mmoL/L (3.5-5.1); Sodium 140 mmol/L (136-145)
== END ==
PROVIDERS: Visit Provider Internal Medicine Cardiovascular Disease
DX: I10 Essential (primary) hypertension (principal); I25.10 Atherosclerotic heart disease of native coronary artery without angina pectoris; I35.2 Nonrheumatic aortic (valve) stenosis with insufficiency
CPT/HCPCS: 36415; 80048

== ENCOUNTER → 2020-12-12 11:03 | Outpatient (CLI) | payer MEDICARE, MEDICAID, SELFPAY ==
[2020-12-12 11:41] LABS: Basophils # 0.1 K/mm3 (0-0.2); Basophils % 1.1 % (0.1-2.0); Eosinophils # 0.4 K/mm3 (0.0-0.4); Eosinophils % 3.8 % (0.1-12.0); Hematocrit 41.4 % (37.0-47.0); Hemoglobin 13.2 g/dL (12.2-16.2); Lymphocytes # 1.9 K/mm3 (0.7-4.5); Lymphocytes % 20.2 % (10-50); Mean Corpuscular Hemoglobin 29.2 pg (27.0-31.2); Mean Corpuscular Volume 91.3 fl (81-99); Mean Platelet Volume 9.1 fl (7.4-10.4); Monocytes # 0.6 K/mm3 (0.1-1.0); Monocytes % 6.1 % (1.7-9.3); Neutrophils # 6.3 K/mm3 (1.8-7.8); Neutrophils % 68.7 % (37.0-80.0); Platelet Count 211 K/mm3 (142-424); Red Blood Count 4.53 M/mm3 (4.20-5.40); Red Cell Distribution Width 14.8 % (11.5-17.5); White Blood Count 9.2 K/mm3 (4.8-10.8)
[2020-12-13 13:11] LABS: Alpha-1-Antitrypsin 133 mg/dL (101-187)
== END ==
PROVIDERS: Visit Provider Internal Medicine Pulmonary Disease
DX: J45.909 Unspecified asthma, uncomplicated (principal); J44.9 Chronic obstructive pulmonary disease, unspecified
CPT/HCPCS: 36415; 82103; 85025

== ENCOUNTER → 2021-02-25 14:11 | Outpatient (CLI) | payer MEDICARE, MEDICAID, SELFPAY ==
--- NOTE | 2021-02-25 14:11 | CA_ITS ---
APPROVED REPORT EXAM: Comprehensive 2D, Doppler, and color-flow Echocardiogram Basket Weaver: MARTHA Day, RVS Ht: 5 ft 1 in Wt: 166lbs BSA: 1.74 BP: 147/64 mmHg Indications: Pre-op clearance, SOB, murmur, cp, copd, exsmoker 2D Dimensions IVSd 0.96 cm LVEF (Visual) 53.10 % PWd 0.84 cm LA Volume 22.10 mL LVDd 4.69 cm LA Volume Index 12.877636 mL/m2 (M/F) 16-34 LVDs 3.41 cm M-Mode Dimensions LA Diam 3.71 cm (1.9-4.0) LVDd 5.02 cm (3.5-5.7) Ao Diam 3.47 cm (2.0-3.7) LVDs 3.09 cm (3.5-5.7) EF (Teich) 68.50% EPSs 0.36 cm FS 38.40% EDV (Teich) 119.30 mL TAPSE 1.75 (<1.7) ESV (Teich) 37.60 mL LV Diastology E Decel Time 250.00 (160-240 msec) E/A Ratio 0.99 MED E' 6.80 (< 7 cm/sec) MED A' 8.80 cm/s E'/MED E' Ratio 10.79 (>14) LAT E' 6.00 (<10 cm/sec) LAT A' 9.60 cm/s E/LAT E' Ratio 12.23 (>14) Aortic Valve LVOT Max 106.00 (70-110 cm/s) LVOT VTI 23.31 cm AoV Peak Jay. 172.00 (50-130 cm/s) AI PHT 404.00 ms AO Peak GR. 11.90 mmHg AO Mean GR. 5.70 (<5 mmHg) AO VTI 32.97 (18-25 cm) Mitral Valve MV A Velocity 74.00 (40-130 cm/s) E/A Ratio 0.99 MV Decel. Time 250.00 (160-240 ms) Pulmonary Valve PV Peak Velocity 103.00 (50-150 cm/s) Tricuspid Valve TR P. Velocity 225.00 cm/s RAP Estimate 10.00 mmHg RVSP 30.30 mmHg Left Ventricle Left atrium is mildly enlarged, left ventricle is normal size, mild concentric left ventricular hypertrophy, visually estimated ejection fraction 55% with no regional wall motion abnormality, grade 1 diastolic dysfunction seen without tissue Doppler evidence of raise left atrial pressure. Right Ventricle Right atrium and right ventricle are mildly enlarged with normal contractility. Aortic Valve Aortic valve is minimally thickened and fibrosed, there is no aortic stenosis, there is mild aortic insufficiency. Mitral Valve Mitral valve is grossly normal, there is mild mitral regurgitation. Tricuspid Valve Tricuspid grossly normal, there is mild tricuspid regurgitation, tricuspid regurgitation jet velocity is inadequate for calculation of the right ventricular systolic pressure. Pulmonic Valve Pulmonic valve is poorly visualized. Great Vessels Aortic root is normal size. Pericardium No significant pericardial effusion noted. Conclusion 1. Mild biatrial Allmond, normal left ventricular size, mild concentric left ventricular hypertrophy, visually estimated ejection fraction 55% with no regional wall motion abnormality, grade 1 diastolic dysfunction seen without tissue Doppler evidence of raise left atrial pressure. 2. Mildly enlarged right ventricle with normal contractility. 3. Mild aortic, mitral and tricuspid regurgitation. 4. No significant pericardial effusion noted. Electronically signed by : Frederick Clarke, 02/26/2021 15:26:23
== END ==
PROVIDERS: PCP Emergency Medicine; Visit Provider Internal Medicine Cardiovascular Disease
DX: R06.00 Dyspnea, unspecified (principal); R94.31 Abnormal electrocardiogram [ECG] [EKG]
CPT/HCPCS: 93306

== ENCOUNTER → 2021-03-16 13:17 | Outpatient (CLI) | payer MEDICARE, MEDICAID, SELFPAY ==
--- NOTE | 2021-03-16 13:17 | MM_ITS ---
PROCEDURE INFORMATION: Exam: MG Screening 3D Mammography Exam date and time: 03/16/2021 1:17 PM Age: 71 years old Clinical indication: screening mammogram TECHNIQUE: Imaging protocol: Screening tomosynthesis and 2D mammography including computer-aided detection (CAD) when performed. COMPARISON: 1. MG DIG MAMM-SCREEN MAXINE 03/12/2019 9:41 AM 2. MG DMSB DIG MAMM-SCREEN MAXINE W/CAD 01/27/2017 9:00 AM 3. BL US BREAST-LT COMPLETE W/AXILLA 02/15/2017 1:14 PM 4. BR US BREAST-RT COMPLETE W/AXILLA 02/15/2017 1:02 PM FINDINGS: MAMMOGRAPHY: Breast composition: There are scattered areas of fibroglandular density. Mass: Mass within the upper outer posterior right breast measuring 8 mm should be further assessed with spot views in CC/MLO projection to confirm and further characterize. Ultrasound should also be performed. Additionally, Stable benign-appearing subcentimeter nodules are present in the bilateral breasts. No new or morphologically suspicious nodule has developed to suggest malignancy. Architectural distortion: No new or suspicious architectural distortion. Calcifications: Stable benign-appearing calcifications are present. No new or suspicious cluster of microcalcifications have developed. Asymmetric density: No new or suspicious asymmetric density is present Skin thickening: None. Axillary adenopathy: None. IMPRESSION: Mass within the upper outer posterior right breast measuring 8 mm should be further assessed with spot views in CC/MLO projection to confirm and further characterize. Ultrasound should also be performed. ASSESSMENT: BI-RADS category 0: Incomplete-need additional imaging evaluation
== END ==
PROVIDERS: PCP Emergency Medicine; Visit Provider Obstetrics & Gynecology
DX: Z12.31 Encounter for screening mammogram for malignant neoplasm of breast (principal)
CPT/HCPCS: 77063; 77067

== ENCOUNTER → 2021-03-25 12:40 | Outpatient (CLI) | payer MEDICARE, MEDICAID, SELFPAY | PROVIDERS: PCP Emergency Medicine; Visit Provider Internal Medicine Pulmonary Disease | DX: G47.33 Obstructive sleep apnea (adult) (pediatric) (principal) | CPT/HCPCS: 94762 ==

== ENCOUNTER → 2021-03-31 13:41 | Outpatient (CLI) | payer MEDICARE, MEDICAID, SELFPAY ==
--- NOTE | 2021-03-31 13:41 | US_ITS ---
PROCEDURE: MM DIG MAMM DX UNILAT RT CAD Digital Breast Tomosynthesis Included CLINICAL INDICATION: RT BREAST DENSITY COMPARISON: MG DMSB DIG MAMM-SCREEN MAXINE W/CAD from 01/27/2017 US BR US BREAST-RT COMPLETE W/AXILLA from 02/15/2017 MG DIG MAMM-SCREEN MAXINE from 03/12/2019 MG MM DIG SCREENING MAMM BI W/CAD from 03/16/2021 US US BREAST RT COMPLETE from 03/31/2021 TECHNIQUE: Standard CC and MLO images and 3D Tomosynthesis was obtained. R2 CAD reviewed. FINDINGS: A persistent nodular opacity is present in the upper outer aspect of the right breast approximately 8 mm corresponding to the original abnormality noted on the screening exam margins are somewhat obscured posteriorly and laterally Right breast ultrasound: There is a hypoechoic nodule at 10 o'clock at 3 mm. A cystic nodules present at 11 o'clock at 6 x 5 mm possibly corresponding to the mammographic abnormality. No suspicious nodule is evident. IMPRESSION: Probably benign findings. Recommend 3 month sonographic follow-up BI-RAD Category: 3 Probably Benign Finding Short Term Follow-Up FOLLOW-UP: 3M 3 Month Follow-up (A letter has been sent to the patient regarding results of the study.) Dictated by: Derek Muñoz MD 04/13/2021 11:27 Derek Muñoz MD in [place] 04/13/2021 11:27
== END ==
PROVIDERS: PCP Emergency Medicine; Visit Provider Obstetrics & Gynecology
DX: R92.8 Other abnormal and inconclusive findings on diagnostic imaging of breast (principal)
CPT/HCPCS: 76641; 77061; 77065; G0279

== ENCOUNTER → 2021-04-14 14:45 | Outpatient (CLI) | payer MEDICARE, MEDICAID, SELFPAY | PROVIDERS: PCP Emergency Medicine; Visit Provider Internal Medicine Pulmonary Disease | DX: R06.00 Dyspnea, unspecified (principal); J43.9 Emphysema, unspecified | CPT/HCPCS: 94762 ==

== ENCOUNTER 2021-05-13 13:00 | Outpatient (RCR) | payer MEDICARE, MEDICAID, SELFPAY ==
--- NOTE | 2021-03-16 11:37 | HMH.OTOPEV ---
OT Inpatient Evaluation Rehab OT Outpatient Eval Start: 03/16/21 11:25 Freq: Status: Active Protocol: Document 03/16/21 11:25 RMARSHALL (Rec: 03/16/21 11:36 [facility] [id number]) Electronically Signed By Miley Holland OT 03/16/21 11:25 Outpatient Therapy Subjective History Subjective History Pt is a 71 year old female who reports to therapy for initial evaluation to left shoulder. Pt reports her left shoulder/deltoid area has been hurting her for a few months. She does not recall a specific injury causing the pain. Pt demonstrates with decrease in AROM and strength at left shoulder. Pt will continue to be seen in order to address deficits. Chief Complaint Pain,Stiff Symptom Type Ache,Throb,Dull,Burning Symptoms Relieved By Rest/Positioning Symptoms Aggravated By Physical Activity,Lifting Prior Functional Limitations None Current Functional Limitations Reaching,Lifting,Housework, Dressing,Sleeping,Recreation Activity Symptom Description Intermittent,Activity Dependent Level of pain today (0-10) 0 Pain scale - at its best (0-10) 0 Pain scale - at its worst (0-10) 7 Shoulder/Elbow Eval Shoulder Objective Measurements Shoulder ROM Left Shoulder Abduction Active Range of 85 degrees Motion (degrees) Shoulder Flexion Active Range of Motion 90 degrees (degrees) Query Text: Shoulder External Rotation Active Range 30 degrees of Motion (degrees) Shoulder Internal Rotation Active Range 40 degrees of Motion (degrees) pain with active ROM shoulder exam left standard pain with passive ROM shoulder exam left standard decreased ROM shoulder exam standard left Shoulder MMT Shoulder Abduction Strength Grade 3- Fair- Shoulder Extension Strength Grade 3- Fair- Shoulder Flexion Strength Grade 3- Fair- Shoulder External Rotation Strength 3- Fair- Grade Shoulder Internal Rotation Strength 3- Fair- Grade Shoulder Strength Patient Testing Sitting Position Shoulder Special Tests impingement sign present shoulder exam left standard Shoulder Empty Can (Supraspinatus) Test Positive Left Shoulder Wang-Isai Impingement Positive Left Test
--- NOTE | 2021-04-27 13:22 | HMH.RHREAS ---
Rehab Reassessment Rehab OP Re-assessment Start: 04/27/21 13:08 Freq: Status: Active Protocol: Document 04/27/21 13:09 RMARSHALL (Rec: 04/27/21 13:22 RMARSHALL [email or web address]) Electronically Signed By Miley Holland OT 04/27/21 13:09 Rehab Re-assessment Subjective Subjective I do see some improvements, but it still hurts. Objective Objective Notes Pt continues to be seen weekly in order to address left shoulder deficits. Pt engages in AROM, AAROM, and strengthening exercises. Pt also receives PROM manual stretching to improve active motion. Modalities are provided in order to decrease pain/inflammation. Assessment Progress Assessment Progressing as Expected Assessment Notes Pt does demonstrate improvement with AROM at left shoulder, except in flexion. Pt explains she doesn't really have pain unless she moves her arm a specific way ( usually in abduction or overhead). Heavier household tasks are hard for her due to continued weakness. She feels she is ~50% better since starting therapy. Current AROM at L shoulder Flex: 90 degrees Abd: 125 degrees ER: 65 degrees IR: 65 degrees Patient goals met ST, 3 and 5 Goals Not Met See below for added goals Revised Goals LTG 1-5 STG 1 and 4 New goals: 1. Pt will be able to actively move L shoulder in flexion to 120 degrees in order to complete overhead reaching for completion of cooking/cleaning tasks at home with decreased pain 50% of the time 2.Pt will be able to actively move L shoulder in abduction to 140 degrees in order to complete houshold cleaning
== END 2021-05-13 13:05 | disposition home or self-care (01) ==
LOC: OT 13:00
PROVIDERS: PCP Emergency Medicine; Visit Provider Nurse Practitioner Family
DX: M79.602 Pain in left arm (principal); M79.622 Pain in left upper arm
CPT/HCPCS: 97014; 97035; 97110; 97140; 97164; 97166; 97530; G0283

== ENCOUNTER → 2021-05-14 12:57 | Outpatient (CLI) | payer MEDICARE, MEDICAID, SELFPAY | PROVIDERS: PCP Emergency Medicine; Visit Provider Internal Medicine Pulmonary Disease | DX: J44.9 Chronic obstructive pulmonary disease, unspecified (principal) | CPT/HCPCS: 94762 ==

== ENCOUNTER → 2021-06-22 14:39 | Outpatient (CLI) | payer MEDICARE, MEDICAID, SELFPAY ==
--- NOTE | 2021-06-22 14:39 | US_ITS ---
PROCEDURE: US BREAST RT COMPLETE CLINICAL INDICATION: Abnormal mamm Follow-up abnormal mammogram and ultrasound COMPARISON: MG DMSB DIG MAMM-SCREEN MAXINE W/CAD from 01/27/2017 MG DIG MAMM-SCREEN MAXINE from 03/12/2019 MG MM DIG SCREENING MAMM BI W/CAD from 03/16/2021 MG MM DIG MAMM DX UNILAT RT CAD from 03/31/2021 US US BREAST RT COMPLETE from 03/31/2021 FINDINGS: Hypoechoic 7 x 3 mm nodular area at 12 o'clock near the nipple. This may only be due to an area of fibroglandular tissue. 4 mm hypoechoic nodule at 10 o'clock mid breast with enhanced through transmission of sound corresponding to the previously described sonographic abnormality at 10 o'clock now having more the appearance of a cyst. 5 x 4 mm hypoechoic nodule at 10 o'clock outer suggesting a small cyst. No suspicious nodules evident. The mammographic and sonographic findings are discordant as the mammographic abnormality is larger than the sonographic abnormality.. Therefore, would suggest stereotactic directed biopsy the nodule in the upper outer right breast. IMPRESSION: Suspicious findings. BI-RADS category 4: Suspicious biopsy suggested. Recommend stereotactic directed biopsy of the nodule in the upper outer aspect of the right breast. Dictated by: Derek Muñoz MD 07/03/2021 10:44 Derek Muñoz MD in [place] 07/03/2021 10:44
== END ==
PROVIDERS: PCP Emergency Medicine; Visit Provider Emergency Medicine
DX: R92.8 Other abnormal and inconclusive findings on diagnostic imaging of breast (principal)
CPT/HCPCS: 76641

== ENCOUNTER → 2021-07-13 11:31 | Outpatient (CLI) | payer MEDICARE, MEDICAID, SELFPAY ==
--- NOTE | 2021-07-13 11:31 | MM_ITS ---
PROCEDURE: MM STEREOTACTIC LOC RT MM CLIP PLACEMENT CLINICAL INDICATION: abnormal ultrasound Discordant findings on ultrasound and mammogram the FINDINGS: Limited focused H&P: Limited physical exam performed by . Lungs: Clear. Heart: Regular rate and rhythm. Mental status: Within normal limits. Informed consent was obtained prior to the procedure. TECHNIQUE: The patient was given 1 mg of Xanax, Lortab 5 mg, and analgesia and minor sedation. Following obtaining informed consent and time-out procedure, the patient was placed on the stereotactic table and the nodule in the upper outer quadrant was localized in the most appropriate projection. The breast was prepped in the routine manner, with sterile prep and the overlying skin anesthetized. A 3 to 4 mm skin incision was performed and the 9 gauge sorus vacuum-assisted core biopsy needle was advanced to the region of the calcification. Pre- and post fire images were obtained. The patient tolerated the procedure well without complications. Specimen was sent for pathologic analysis which should be forthcoming within 3 working days. Routine follow-up phone call to patient is to be performed as well. A tiny titanium nonferromagnetic MicroMark was positioned through the mammotome needle into the biopsy site. Patient tolerated the procedure well without evidence of immediate complications. The patient then obtained a post biopsy mammogram. Pathology: Benign breast with proliferative fibrocystic changes including cystic apical metaplasia and epithelial hyperplasia without atypia. Negative for carcinoma. IMPRESSION: 1. Successful stereotactic vacuum-assisted core biopsy of the breast calcifications. 2. Successful placement of a titanium metal MicroMark. 3. Pathologic demonstrates benign findings. 4. No noted complications. IMPRESSION: Successful stereotactic directed biopsy of the right breast showing benign findings.. BREAST MAMMOGRAM: Compared to the prior study, the previously noted calcification have been removed. A small MicroMark clip was inserted into the region of the calcifications. There is evidence of soft tissue changes in the region of the biopsy was soft tissue gas and edema. 5. Adequate placement of the MicroMark clip postbiopsy. 6. Postbiopsy changes within the breast. 7. Recommend follow-up mammogram and ultrasound in 6 months per routine protocol. Dictated by: Derek Muñoz MD 07/20/2021 08:28 Derek Muñoz MD in [place] 07/20/2021 08:28
== END ==
PROVIDERS: PCP Emergency Medicine; Visit Provider Obstetrics & Gynecology
DX: R92.8 Other abnormal and inconclusive findings on diagnostic imaging of breast (principal)
CPT/HCPCS: 19081; 77065; 88305

== ENCOUNTER → 2021-12-07 12:46 | Outpatient (CLI) | payer MEDICARE, MEDICAID, SELFPAY ==
--- NOTE | 2021-12-07 12:46 | CT_ITS ---
FINAL REPORT CLINICAL HISTORY: lung cancer screening former smoker, quit 9 years ago copd smoked 2ppd x 50 years when she was a smoker. around 2nd hand smoke now. COMPARISON: December 05, 2020 FINDINGS: CTDI vol (mGy): 2.9 DLP (mGy-cm): 88.[address] images of the chest were obtained using the low-dose protocol for screening. There is no evidence of mediastinal or hilar mass or adenopathy. No axillary mass or adenopathy is identified. On the lung window images, there is moderate emphysema. There is mild scarring. A 3 mm nodule seen in the lateral right middle lobe on image number 43, stable. There is a stable 3 mm nodule in the right lower lobe posteriorly on image #47. A calcified granuloma is seen in the right lower lobe. There is no new pulmonary mass or nodule. IMPRESSION: Stable 3 mm nodules in the right middle lobe and right lower lobe. Lung RADS CATEGORY 2. Recommend 12 month followup low-dose CT for further evaluation. Reviewed, Interpreted and Dictated by Jean Shi III, MD Transcribed by ESTIVEN Wood Authenticated by Jean Shi III, MD on 12/07/2021 02:42:28 PM [facility]
== END ==
PROVIDERS: PCP Emergency Medicine; Visit Provider Internal Medicine Pulmonary Disease
DX: Z87.891 Personal history of nicotine dependence (principal); Z12.2 Encounter for screening for malignant neoplasm of respiratory organs
CPT/HCPCS: 71271

== ENCOUNTER → 2022-01-26 12:00 | Outpatient (CLI) | payer MEDICARE, MEDICAID, SELFPAY ==
[2022-01-26 18:35] LABS: Basophils # 0.2 K/mm3 (0-0.2); Basophils % 2.1 % (0.1-2.0); Eosinophils # 0.3 K/mm3 (0.0-0.4); Hematocrit 42.3 % (37.0-47.0); Hemoglobin 13.8 g/dL (12.2-16.2); Lymphocytes # 1.8 K/mm3 (0.7-4.5); Lymphocytes % 21.5 % (10-50); Mean Corpuscular HGB Conc 32.6 g/dL (31.8-35.4); Mean Corpuscular Hemoglobin 30.5 pg (27.0-31.2); Mean Corpuscular Volume 93.7 fl (81-99); Mean Platelet Volume 10.7 fl (7.4-10.4); Monocytes # 0.6 K/mm3 (0.1-1.0); Monocytes % 7.2 % (1.7-9.3); Neutrophils # 5.6 K/mm3 (1.8-7.8); Neutrophils % 66.3 % (37.0-80.0); Platelet Count 268 K/mm3 (142-424); Red Blood Count 4.51 M/mm3 (4.20-5.40); Red Cell Distribution Width 14.5 % (11.5-17.5); White Blood Count 8.5 K/mm3 (4.8-10.8)
[2022-01-26 19:21] LABS: Alanine Aminotransferase 24 U/L (12-78); Albumin Level 4.3 g/dl (3.5-5.0); Albumin/Globulin Ratio 1.7 (1.1-1.8); Alkaline Phosphatase 78 U/L (38-126); Anion Gap 12.6 mEq/L (5-15); Aspartate Amino Transferase 26 U/L (14-36); Bilirubin,Total 0.5 mg/dl (0.2-1.3); Blood Urea Nitrogen 24 mg/dl (7-17); Calcium 9.1 mg/dl (8.4-10.2); Carbon Dioxide 28 mmol/L (22.0-30.0); Chloride 103 mmol/L (98-107); Estimated Glomerular Filt Rate 54 ml/min (>60); GFR (African American) 66 ML/MIN (>60); Globulin 2.6 g/dL (1.3-3.2); Glucose 102 mg/dl (74-100); Potassium 4.6 mmoL/L (3.5-5.1); Sodium 139 mmol/L (136-145); Total Protein,Serum 6.9 g/dl (6.3-8.2)
[2022-01-26 19:38] LABS: T4 (Thyroxine) 10.9 ug/dl (5.53-11.0)
[2022-01-26 19:52] LABS: Thyroid Stimulating Hormone 0.58 uIU/mL (0.465-4.68)
== END ==
PROVIDERS: PCP Emergency Medicine; Visit Provider Emergency Medicine
DX: Z09 Encounter for follow-up examination after completed treatment for conditions other than malignant neoplasm (principal); I35.0 Nonrheumatic aortic (valve) stenosis; Z79.899 Other long term (current) drug therapy
CPT/HCPCS: 80053; 84436; 84443; 85025

== ENCOUNTER → 2022-04-29 11:14 | Outpatient (CLI) | payer MEDICARE, MEDICAID, SELFPAY ==
--- NOTE | 2022-04-29 | CA_ITS ---
APPROVED REPORT Exam: Pharmacologic Technologist: Candelaria Rich, Ht: 5 ft 0 in Wt: 165 lbs BSA: 1.72 m2 HR: 63 bpm BP: 136/62 mmHg Medical History Medications: Amlodipine,,,,, Omeprazole,,,,, Levothyroxine,,,,, Pravastatin,,,,, Losartan,,,,, HCTZ,,,,, Duoneb,,,,, Albuterol,,,,, Montelukast,,,,, BisOPROLOL,,,,, Cyclobenzaprine,,,,, Trelegy,,,,, Stress Test Details Test: LEXISCAN Reason for pharmacologic stress test: physical limitation. HR Resting HR: 64 bpm Max Heart Rate (APMHR): 146.716268 bpm Max HR Achieved: 89 bpm Target HR (85% APMHR): 124.553818 bpm % of APMHR: 60.96 Recovery HR: 76 bpm BP Resting BP: 136/62 mmHg Max BP: 148/63 mmHg Recovery BP: 121.0/60.0 mmHg ECG Resting ECG: NSR, rightward axis Clinical Exercise duration: 04:00 min Highest Stage Achieved: Exercise capacity: 1.0 METs Stress ECG Conclusion Symptoms: Mild SOA & stomach discomfort Arrhythmias/Ectopy: None ST-T Changes: No significant changes. Conclusion: Unremarkable Lexiscan stress. Myoview images reported separately. Electronically signed by : Frederick Clarke MD 04/30/2022 13:09:05
--- NOTE | 2022-04-29 11:21 | NM_ITS ---
APPROVED REPORT Exam: Nuclear Stress Test Indication: SOB, HTN, High cholesterol, Former tobacco use, Family history Patient Location: Outpatient Stress Tech: Candelaira Puentes PA Tech:Petra Mckinley, ARRT, RT (R)(N) Ht: 5 ft 0 in Wt: 165 lbs Bra Size: 42C HR: 64 bpm BP: 136/62 mmHg BSA: 1.72 m2 TID: 1.21 History: SOB, HTN, High cholesterol, Former tobacco use, Family history Procedure: Patient received a 0.4 mg of intravenous Lexiscan, resting heart rate 64 bpm, resting blood pressure 136/62 mmHg, with Lexiscan maximum heart rate achived was 89 bpm which is Less than 85 % of the maximum predicted heart rate and blood pressure was 148/63 mmHg. With Lexiscan, patient denied any complaint of chest pain. Electrocardiogram Resting electrocardiogram shows sinus rhythm, with Lexiscan there is less than 1.[address] segment depression noted from the baseline EKG. The EKG portion of the Lexiscan is nondiagnostic. Cardiac Stress and Resting SPECT Images: Cardiac Stress and Resting SPECT images were obtained using technetium 99m Myoview 31.0 mCi stress and 10.24 mCi at rest. Gated SPECT for analysis of segmental wall motion and calculation of the ejection fraction also done. Cardiac stress and rest SPECT may show uniform myocardial activity without segmental perfusion abnormality, computer derived ejection fraction is over 65% with no regional wall motion abnormality, right ventricle is normal size and contractility. Conclusion: 1. The EKG portion of the Lexiscan is nondiagnostic. 2. No scintigraphic evidence of reversible ischemia seen, compared to ejection fraction over 65% with no regional wall motion abnormality, right ventricle is normal size and contractility. 3. Normal Lexiscan Myoview study. Electronically signed by : Frederick Clarke MD 04/30/2022 13:46:46
--- NOTE | 2022-04-29 13:18 | CA_ITS ---
APPROVED REPORT EXAM: Comprehensive 2D, Doppler, and color-flow Echocardiogram Powertrain Calibration Engineer: Shanice Kumar RT(R) Ht: 5 ft 0 in Wt: 165lbs BSA: 1.72 BP: 130/60 mmHg Indications: SOB, COPD, ex smoker, HTN, MERA, CAD 2D Dimensions LVOT 1.89 cm (M/F) 1.5-2.5 LVEF (Mueller's) 44.60 % F: 54 - 74 LV Volume 69.90 mL F: 46 - 106 LV Volume Index 40.63 mL/m2 F: 29 - 61 M-Mode Dimensions LA Diam 2.98 cm (1.9-4.0) Ao Diam 2.26 cm (2.0-3.7) LV Diastology E Decel Time 193.00 (160-240 msec) E/A Ratio 1.0 MED E' 6.80 (< 7 cm/sec) E'/MED E' Ratio 11.87 (>14) LAT E' 8.40 (<10 cm/sec) E/LAT E' Ratio 9.61 (>14) Mitral Valve MV E Max Jay. 81.00 (40-130 cm/s) MV A Velocity 83.00 (40-130 cm/s) E/A Ratio 0.97 MV Decel. Time 193.00 (160-240 ms) MV PHT 57.00 ms Left Ventricle Left atrium is mildly enlarged, left ventricle is normal size mild concentric left ventricular hypertrophy, estimated ejection fraction 55% with no regional wall motion abnormality, grade 1 diastolic dysfunction seen without tissue Doppler evidence of raise left atrial pressure. Right Ventricle Right atrium and right ventricle are mildly enlarged with normal contractility. Aortic Valve Aortic valve is minimally thickened and fibrosed there is no aortic stenosis, there is mild aortic insufficiency. Mitral Valve Mitral valve has mitral calcification, leaflets are minimally thickened, there is mild mitral regurgitation. Tricuspid Valve Tricuspid valve grossly normal, there is mild tricuspid regurgitation, tricuspid regurgitation jet velocity is inadequate for calculation of the right ventricular systolic pressure. Pulmonic Valve Pulmonic valve is poorly visualized. Great Vessels Aortic root is normal size. Inferior vena cava is poorly visualized. Pericardium No significant pericardial effusion noted. Conclusion 1. Biatrial enlargement, normal left ventricular size mild concentric left ventricular hypertrophy, estimated ejection fraction 55% with no regional wall motion abnormality, grade 1 diastolic dysfunction seen without tissue Doppler evidence of raise left atrial pressure. 2. Mildly enlarged right ventricle with normal contractility. 3. Mild aortic, mild mitral and tricuspid regurgitation. 4. No significant pericardial effusion. 5. Inferior vena cava is poorly visualized. Electronically signed by : Frederick Clarke MD 04/30/2022 15:58:43
== END ==
PROVIDERS: PCP Emergency Medicine; Visit Provider Emergency Medicine
DX: R06.00 Dyspnea, unspecified (principal); I35.0 Nonrheumatic aortic (valve) stenosis
CPT/HCPCS: 78452; 93017; 93306; A9502; J2785

== ENCOUNTER → 2022-05-01 08:53 | Outpatient (CLI) | payer MEDICARE, MEDICAID, SELFPAY | PROVIDERS: PCP Emergency Medicine; Visit Provider Surgery | DX: Z20.822 Contact with and (suspected) exposure to COVID-19 (principal) | CPT/HCPCS: C9803; U0003; U0005 ==

== ENCOUNTER 2022-05-03 09:29 | Observation (INO) | payer MEDICARE, MEDICAID, SELFPAY ==
[2022-04-28 12:05] VITALS: BMI 32.2
[2022-05-03] VITALS (27 sets, daily range): BP systolic 89–143; BP diastolic 37–64; PULSE 65–85; RESP 16–22; TEMP 36.4–43; O2SAT 90–95; BMI 33.7
--- NOTE | 2022-05-03 06:28 | ECG_ITS ---
APPROVED REPORT Exam: Resting ECG HR:65 bpm ECG Measurements Heart Rate 65 AXES KS 217 P 56 QRSd 78 QRS 15 QT 392 T 47 QTc 403 Conclusion SINUS RHYTHM WITH FIRST DEGREE AV BLOCK ABNORMAL ECG UNCONFIRMED REPORT Electronically signed by : David Malone MD 05/04/2022 21:09:59
[2022-05-03 06:50] LABS: Basophils # 0.1 K/mm3 (0-0.2); Basophils % 0.9 % (0.1-2.0); Eosinophils # 0.4 K/mm3 (0.0-0.4); Eosinophils % 4.9 % (0.1-12.0); Hematocrit 37.8 % (37.0-47.0); Hemoglobin 12.8 g/dL (12.2-16.2); Lymphocytes # 1.9 K/mm3 (0.7-4.5); Lymphocytes % 26.3 % (10-50); Mean Corpuscular HGB Conc 33.8 g/dL (31.8-35.4); Mean Corpuscular Volume 88.8 fl (81-99); Mean Platelet Volume 8.7 fl (7.4-10.4); Monocytes # 0.5 K/mm3 (0.1-1.0); Monocytes % 6.5 % (1.7-9.3); Neutrophils # 4.4 K/mm3 (1.8-7.8); Neutrophils % 61.4 % (37.0-80.0); Platelet Count 216 K/mm3 (142-424); Red Blood Count 4.26 M/mm3 (4.20-5.40); Red Cell Distribution Width 14.1 % (11.5-17.5); White Blood Count 7.2 K/mm3 (4.8-10.8)
[2022-05-03 06:56] LABS: Anion Gap 10.8 mEq/L (5-15); Blood Urea Nitrogen 21 mg/dl (7-17); Calcium 9.2 mg/dl (8.4-10.2); Carbon Dioxide 29 mmol/L (22.0-30.0); Chloride 105 mmol/L (98-107); Creatinine Clearance Estimated 53 mL/min (50-200); Estimated Glomerular Filt Rate 49 ml/min (>60); GFR (African American) 59 ML/MIN (>60); Glucose 108 mg/dl (74-100); Potassium 4.8 mmoL/L (3.5-5.1); Sodium 140 mmol/L (136-145)
--- NOTE | 2022-05-03 06:56 | HMH.GSHP ---
HPI HPI: Patient is a 72-year-old female who presents for ventral hernia repair. She had initially been seen July 2019 for this. Had previously seen her for colonoscopy. She has a history of coronary artery disease, COPD (on nocturnal home oxygen), diabetes, CAD, HTN, aortic stenosis and insufficiency, history of pulmonary embolism, obstructive sleep apnea, renal insufficiency, obstructive sleep apena.? I had also discussed possible hernia surgery with her quite some time ago.? She has had a right periumbilical hernia for quite some time.? This has become progressively symptomatic to her.? Consideration was being given for laparoscopic repair. She has seen cardiology. Apparently she has been cleared for surgery. She had a previous CT scan done last year which revealed a right periumbilical hernia with a defect measuring 2 cm containing fat with a tiny adjacent umbilical hernia. I discussed the options with her. I feel that laparoscopic repair would be the best option with possible open repair. Likely would plan for postoperative admission for observation given her comorbidities. This is to be arranged. [facility] History I have reviewed the patient's past medical history: Yes Medical History: Reports:: Asthma, Chronic Obstructive Pulmonary Disease (COPD), Gastroesophageal Reflux Disease(GERD), Hyperlipidemia, Hypertension, Pulmonary Embolism Denies:: Cancer, Diabetes Mellitus Type 1, Diabetes Mellitus Type 2, Internal Pacemaker, MRSA, Seizures *Have you ever received a pneumonia vaccine?: No *Have you received a flu vaccine this season?: Yes Other Medical History: Reports: Hypothyroidism, Other. Denies: Blood Transfusion Reaction Laterality Cases: Right: Carpal Tunnel Release, Bilateral: Cataract Other Surgeries: Yes: No Previous Surgery, Cholecystectomy, Colonoscopy, Dilation and Curettage, Hysterectomy-Total, Other. No: Pacemaker Amputation: No Fractures: No - *Social History Last grade of school completed: High school graduate Smoking Status: Former smoker Tobacco Type: cigarettes Alcohol Intake: never Alcohol Intake Frequency:: other Substance Use Type: denies use *Occupational Status:: retired Housing: apartment Household Members: none *Travel in the last 8 weeks: None Family Hx:: Coronary Artery Disease Review of Systems - Review of Systems Review of systems:: pertinent systems reviewed and negative unless documented below Meds Home Medications Medication Instructions Recorded Confirmed Type albuterol sulfate 90 mcg/actuation 2 puff INHALATION QID PRN 90 Days 12/24/21 05/03/22 Rx aerosol inhaler #8.5 g levothyroxine 100 mcg tablet 100 mcg PO DAILY #90 tab 12/25/21 05/03/22 Rx amlodipine 5 mg tablet 5 mg PO DAILY #90 tab 03/19/22 05/03/22 Rx losartan 100 mg tablet 100 mg PO DAILY #90 tab 03/19/22 05/03/22 Rx Albuterol Sulfate [Proair Hfa] 8.5 gm IH DAILY 05/03/22 05/03/22 History Fluticasone Propionate 2 spray NS DAILY 05/03/22 05/03/22 History Fluticasone/Umeclidin/Vilanter 1 each IH DAILY 05/03/22 05/03/22 History [Trelegy Ellipta 200-62.5-25] Ibuprofen 200 mg PO DAILY 05/03/22 05/03/22 History Ipratropium/Albuterol Sulfate See Rx Instructions .ROUTE .COMPLEX 05/03/22 05/03/22 History [Duoneb 3mL neb] Montelukast Sodium [Singulair] 10 mg PO DAILY 05/03/22 05/03/22 History Omeprazole 40 mg PO DAILY 05/03/22 05/03/22 History Pravastatin Sodium [Pravachol 40mg 40 mg PO DAILY 05/03/22 05/03/22 History Tablet] Spironolactone [Spironolactone 25 mg PO DAILY 05/03/22 05/03/22 History 25mg Tablet] bisoproloL fumarate [Bisoprolol 5 mg PO DAILY 05/03/22 05/03/22 History Fumarate] hydroCHLOROthiazide 12.5 mg PO DAILY 05/03/22 05/03/22 History [Hydrochlorothiazide 12.5mg Tab] Allergies Allergy/AdvReac Type Severity Reaction Status Date / Time lisinopril [LISINOPRIL] Allergy Unknown na Verified 05/03/22 06:18 Exam Vital signs and Labs for Last 24 Hours: Temp Pulse Resp BP Puls
--- NOTE | 2022-05-03 07:47 | HMH.ANESCL ---
[facility] Anesthesia Checklist - Structural Data Admitted From: Home Planned Operative Procedure/s: lap ventral hernia repair Consent for Planned Operative Procedure(s) Verified: Yes - Additional verifications Anesthesia Reactions: No Hx Blood Transfusions: No Blood Transfusion Reaction: No - Airway Assessment C-Spine Mobility Assessed: Yes TMJ Mobility Assessed: Yes Dentition: Edentulous - Neurological Assessment Level of Consciousness: Awake, Alert, Appropriate - Anesthesia Plan Anesthesia Risk discussed: Yes Anesthesia Plan: Verified ASA Class: III Anesthesia Type: General [facility] History I have reviewed the patient's past medical history: Yes Medical History: Reports:: Asthma, Chronic Obstructive Pulmonary Disease (COPD), Gastroesophageal Reflux Disease(GERD), Hyperlipidemia, Hypertension, Pulmonary Embolism Denies:: Cancer, Diabetes Mellitus Type 1, Diabetes Mellitus Type 2, Internal Pacemaker, MRSA, Seizures *Have you ever received a pneumonia vaccine?: No *Have you received a flu vaccine this season?: Yes Other Medical History: Reports: Hypothyroidism, Other. Denies: Blood Transfusion Reaction Anesthesia experience/problems:: none Laterality Cases: Right: Carpal Tunnel Release, Bilateral: Cataract Other Surgeries: Yes: No Previous Surgery, Cholecystectomy, Colonoscopy, Dilation and Curettage, Hysterectomy-Total, Other. No: Pacemaker Amputation: No Fractures: No - *Social History Last grade of school completed: High school graduate Smoking Status: Former smoker Tobacco Type: cigarettes Alcohol Intake: never Alcohol Intake Frequency:: other Substance Use Type: denies use *Occupational Status:: retired Housing: apartment Household Members: none *Travel in the last 8 weeks: None Family Hx:: Coronary Artery Disease
--- NOTE | 2022-05-03 09:42 | HMH.PHAINT ---
MEDICATION RECONCILIATION COMPLETED ON PATIENT USING EXTERNAL FILL HISTORY FROM PHARMACY. -JANAE JACOBSON, SUMEETD
--- NOTE | 2022-05-03 10:21 | HMH.OPNOTE ---
Date of procedure: 05/03/22 Pre-op Diagnosis:: Ventral hernia Post-op Diagnosis:: Same Procedure performed:: Laparoscopic ventral hernia repair with placement of 4 x 6 inch Bard Ventralex mesh Surgeon:: Jean Anaya MD CENTER HOLE REAMER:: Rodger Echeverria Anesthesia: GETOly Estimated blood loss (mL): 30 Clinical Note:: Patient is a 72-year-old female who presents for ventral hernia repair. She had initially been seen July 2019 for this. Had previously seen her for colonoscopy. She has a history of coronary artery disease, COPD (on nocturnal home oxygen), diabetes, CAD, HTN, aortic stenosis and insufficiency, history of pulmonary embolism, obstructive sleep apnea, renal insufficiency, obstructive sleep apena.? I had also discussed possible hernia surgery with her quite some time ago.? She has had a right periumbilical hernia for quite some time.? This has become progressively symptomatic to her.? Consideration was being given for laparoscopic repair. She has seen cardiology. Apparently she has been cleared for surgery. She had a previous CT scan done last year which revealed a right periumbilical hernia with a defect measuring 2 cm containing fat with a tiny adjacent umbilical hernia. I discussed the options with her. I feel that laparoscopic repair would be the best option with possible open repair. Likely would plan for postoperative admission for observation given her comorbidities. Operative findings:: She had a moderate size defect measuring 2 to 3 cm with an adjacent tiny umbilical hernia. There was a very large amount of chronically incarcerated omentum through this relatively small defect. Operative note:: Patient was taken the operating room. She was positioned in supine position. General anesthesia was induced via endotracheal tube. Leigh catheter was placed. Abdomen was prepped and draped in the standard surgical fashion. Through a left subcostal incision 5 mm optical trocar was inserted carefully under laparoscopic visualization into the peritoneal cavity. CO2 pneumoperitoneum was achieved. Surveillance was carried out. There was noted to be hernia in the mid abdomen with omentum present. Ultimately additional 5 mm trocar was inserted in the left lower abdomen and 12 mm trocar was inserted in the right upper abdomen. Dissection was carried out taking down the adhesions from the surrounding hernia. Very prolonged dissection was carried out in an attempt to reduce the hernia contents. She had a very large amount of omentum chronically incarcerated within the defect. Prolonged dissection was carried out. Ultimately adhesions were taken down in the right lower abdomen and additional 5 mm trocar was inserted in the right lower abdomen. A couple of hours of dissection was performed to reduce the chronically incarcerated omentum. There were some minor unavoidable tears in the omentum during attempts to reduce this. Ultimately this was able to be reduced in its entirety. The confluence of fascial defects was marked on the anterior abdomen with a skin marker. To allow for decent fascial overlap of several centimeters a 4 x 6 inch Bard Composix mesh was utilized. This was inserted into the peritoneal cavity. The balloon positioning system insufflation device was brought through a 1 mm incision centrally within the hernia defect. Balloon positioning system was then inflated. Care was taken to position the mesh with good fascial overlap prior to fixating it in all lateral positions with 4 Endo anchor (tacks). Additional Endo anchors were placed. The balloon positioning system device was then removed. Mesh was secured around its periphery with multiple firings of the Endo anchor device. Several other anchors were placed more medially to help eliminate the space . Repair appeared adequate with good mesh integrity and good fascial overlap. There was good hemostasis. Inspection was then turned to the omentum. There were likely some
--- NOTE | 2022-05-03 10:35 | HMH.ANESI ---
[facility] Anesthesia Record Part I Intake, IV Amount: 2,000 Estimated blood loss (mL): 20 Urine output (mL): 200 Blood Pressure: 105/50 SaO2: 93 Pulse Rate: 85 Respiratory Rate: 16 Temperature: 98.3 F Patient is:: Awake, Stable Stable to PACU at:: 10:30
[2022-05-03 10:48] LABS: Influenza A, PCR Not Detected (NotDetected); Influenza B, PCR Not Detected (NotDetected)
--- NOTE | 2022-05-03 11:15 | PC.NURSE ---
1041-construction craft laborer at bedside 1046-notified QUENTIN Fisher of pt's diminished lung sounds with expiratory audible wheezing noted, QUENTIN Fisher ordered for pt to have albuterol nebulizer treatment xonce now 1054-respiratory therapy at bedside administering breathing treatment, pt c/o pain 07/19 to abdomen, medicating as ordered per eMAR-see for details, vss
[2022-05-03 11:16] LABS: Coronavirus 19, PCR Not Detected (NotDetected)
--- NOTE | 2022-05-03 11:42 | PC.NURSE ---
1120-pt's breathing and pain improving, vss, pt drinking water w/out difficulty, awaiting COVID results 1126-detailed report called to SERGIO Gallegos 1128-pt transported to 2nd floor room 218 via hospital bed w/greg rails up per SERGIO Jimenez and SERGIO Morrell, pt left in care of SERGIO Gallegos with bed locked in lowest position, family at bedside, vss, pt stable
--- NOTE | 2022-05-03 11:48 | HMH.PHAVTE ---
[facility] Pharmacy VTE Monitoring - Patient Demographics Admission date: 05/03/22 Report Date: 05/03/22 Time: 11:48 Allergies/Adverse Reactions: Patient Allergies lisinopril [LISINOPRIL] Allergy (Unknown, Verified 05/03/22 06:18) na Height: 1.52 m Weight: 78.471 kg - VTE Risk Labs: VTE Related Lab Results Hgb 12.8 g/dL (12.2-16.2) 05/03/22 06:37 Hct 37.8 % (37.0-47.0) 05/03/22 06:37 Plt Count 216 K/mm3 (142-424) 05/03/22 06:37 BUN 21 mg/dl (7-17) H 05/03/22 06:37 Creatinine 1.10 mg/dl (0.52-1.04) H 05/03/22 06:37 Estimated Creat Clear 53 mL/min (50-200) 05/03/22 06:37 - Prophylaxis VTE Prophylaxis Ordered?: Yes Types of VTE Prophylaxis: TEDS Knee High Location of Applied Device: Bilateral Lower Extremeties
[2022-05-03 15:00] LABS: Microscopic,Cath URINE MICROSCOPIC (MICROSCOPIC)
[2022-05-03 15:10] LABS: Appearance,Urine/Cath CLEAR (Clear); Bilirubin,Cath Negative (Negative); Blood, Urine/Cath Negative (Negative); Color,Urine/Cath YELLOW (Yellow); Glucose,Urine/Cath (UA) Negative (Negative); Ketones,Urine/Cath Negative (Negative); Leukocyte Esterase,Cath Negative (Negative); Nitrate,Cath Negative (Negative); Protein,Urine/Cath Negative (Negative); Urobilinogen,Cath 0.2 EU/dl (0.2)
[2022-05-03 15:31] LABS: Bacteria,Urine/Cath TRACE /lpf; RBC,Urine/Cath Occasional # /hpf (0-3); Squamous Epithelial Ur./Cath Occasional #/hpf (0-5)
--- NOTE | 2022-05-03 19:42 | PC.NURSE ---
spoke with pt's sister via telephone, informed RN that if need her to come picker tender pt tomorrow call her and she will, her number is [phone]
[2022-05-04 03:55] VITALS: BP 125/68; PULSE 78; RESP 18; TEMP 36.8; O2SAT 92
--- NOTE | 2022-05-04 04:30 | PC.NURSE ---
ALERTED, ORIENTED, SKIN WARM AND DRY TO TOUCH. RESP EVEN AND UNLABORED, SHORTNESS OF BREATH WITH EXERTION. AMBULATED WITH ASSIST TO BATHROOM,
--- NOTE | 2022-05-04 07:13 | HMH.GSPN ---
Subjective Narrative: Patient complains of some abdominal soreness. Taking clear liquids without issue. Progress Note: A&P Assessment and Plan for All Diagnoses:: Advance diet. If tolerating probable discharge. Exam Vital signs and Labs for Last 24 Hours: Temp Pulse Resp BP Pulse Ox 98.2 F 78 18 125/68 92 L 05/04/22 03:55 05/04/22 03:55 05/04/22 03:55 05/04/22 03:55 05/04/22 03:55 Laboratory Results - last 24 hr 05/03/22 07:30: Urine Color Yellow, Urine Appearance Clear, Urine pH 6.0, Ur Specific [place] 1.020, Urine Protein Negative, Urine Glucose (UA) Negative, Urine Ketones Negative, Urine Blood Negative, Urine Nitrate Negative, Urine Bilirubin Negative, Urine Urobilinogen 0.2, Ur Leukocyte Esterase Negative, Urine RBC Occasional, Urine WBC None, Ur Squamous Epith Cells Occasional, Urine Bacteria Trace 05/03/22 10:40: SARS-CoV-2 (PCR) Not detected, Influenza A Untype (PCR) Not detected, Influenza Type B (PCR) Not detected I & O for Last 24 hours: Intake & Output 05/01/22 05/02/22 05/03/22 05/04/22 11:59 11:59 11:59 11:59 Intake Total 2119 914 / 914 Output Total 0 / 0 Balance 2119 914 / 914 Weight 173 lb - *Routine Abdominal Exam Comments: Slight distention. Minimal tenderness at hernia site
--- NOTE | 2022-05-04 07:25 | HMH.ANESII ---
[facility] Anesthesia Record Part II Discharge Time: 11:28 Destination: Medical Surgical Department PACU nurse assessment reviewed?: Yes Patient Condition:: Good Anesthesia Complications:: None Swallowing reflex intact?: Yes Cyanosis?: No Blood Pressure: 113/49 Pulse Rate: 82 Temperature: 97.7 F Mental Status: Alert & Oriented Pain level:: 5 Nausea and/or vomitting:: None Intake, IV Amount: 0
[2022-05-04 07:26] VITALS: BP 113/49; PULSE 82; TEMP 36.5
[2022-05-04 08:00] VITALS: BP 129/57; PULSE 77; RESP 16; TEMP 37.3; O2SAT 90
--- NOTE | 2022-05-04 08:03 | HMH.CONS ---
*Admission Date: 05/03/22 *Reason for consult:: Asthma, COPD, GERD *History of present illness: Patient is a 72-year-old female who presents for ventral hernia repair. She had initially been seen July 2019 for this. Had previously seen her for colonoscopy. She has a history of coronary artery disease, COPD (on nocturnal home oxygen), diabetes, CAD, HTN, aortic stenosis and insufficiency, history of pulmonary embolism, obstructive sleep apnea, renal insufficiency, obstructive sleep apena.? I had also discussed possible hernia surgery with her quite some time ago.? She has had a right periumbilical hernia for quite some time.? This has become progressively symptomatic to her.? Consideration was being given for laparoscopic repair. She has seen cardiology. Apparently she has been cleared for surgery. She had a previous CT scan done last year which revealed a right periumbilical hernia with a defect measuring 2 cm containing fat with a tiny adjacent umbilical hernia. I discussed the options with her. I feel that laparoscopic repair would be the best option with possible open repair. Likely would plan for postoperative admission for observation given her comorbidities. This is to be arranged. 38-year-old female patient sitting up in side of bed, she underwent a Laparoscopic ventral hernia repair with mesh placement yesterday. She has tolerated a liquid breakfast denies any nausea/vomiting. She does have 4 small dressings to abdomen clean/dry/intact. She reports her pain is at a tolerable level and she is just sore. She has been up walking in her room. Blood pressure acceptable, heart rate 70, room air saturation 94%. potassium this morning is 5.6 and she will receive Kayexalate. [facility] History I have reviewed the patient's past medical history: Yes Medical History: Reports:: Asthma, Chronic Obstructive Pulmonary Disease (COPD), Gastroesophageal Reflux Disease(GERD), Hyperlipidemia, Hypertension, Pulmonary Embolism Denies:: Cancer, Diabetes Mellitus Type 1, Diabetes Mellitus Type 2, Internal Pacemaker, MRSA, Seizures *Have you ever received a pneumonia vaccine?: Yes *Have you received a flu vaccine this season?: Yes Other Medical History: Reports: Hypothyroidism, Other. Denies: Blood Transfusion Reaction Anesthesia experience/problems:: none Laterality Cases: Right: Carpal Tunnel Release, Bilateral: Cataract Other Surgeries: Yes: No Previous Surgery, Cholecystectomy, Colonoscopy, Dilation and Curettage, Hernia Repair, Hysterectomy-Total, Other. No: Pacemaker Amputation: No Fractures: No - *Social History Last grade of school completed: High school graduate Smoking Status: Former smoker Tobacco Type: cigarettes Alcohol Intake: former Alcohol Intake Frequency:: other Substance Use Type: denies use *Occupational Status:: retired Housing: apartment Household Members: none *Travel in the last 8 weeks: None Family Hx:: Coronary Artery Disease Review of Systems - Review of Systems Review of systems:: pertinent systems reviewed and negative unless documented below - Constitutional Denies anorexia, Denies fatigue, Denies fever(s) - Eyes Denies blurry vision, Denies double vision - ENT Denies dizziness, Denies difficulty swallowing - *Cardiovascular Denies chest pain, Denies shortness of breath - *Respiratory Denies chest congestion, Denies cough, Denies shortness of breath - *Gastrointestinal Reports abdominal pain, Denies change in stools, Denies loose stools - *Musculoskeletal Denies muscle cramps, Denies muscle weakness - Integumentary/Breasts Denies hair loss, Denies change in skin color - *Neurologic Denies abnormal speech, Denies confusion - Psychiatric Denies behavioral changes, Denies confusion - Endocrine Denies cold intolerance, Denies increased thirst - Hematologic/Lymphatic Denies easy bleeding, Denies easy bruising - Allergic/Immunologic Denies GI upset with certain foods, Denies throat swelling
[2022-05-04 08:48] LABS: Basophils % 0.1 % (0.1-2.0); Eosinophils # 0.4 K/mm3 (0.0-0.4); Eosinophils % 2.7 % (0.1-12.0); Hematocrit 33.8 % (37.0-47.0); Hemoglobin 11.6 g/dL (12.2-16.2); Lymphocytes % 6.7 % (10-50); Mean Corpuscular HGB Conc 34.2 g/dL (31.8-35.4); Mean Corpuscular Hemoglobin 30.3 pg (27.0-31.2); Mean Corpuscular Volume 88.6 fl (81-99); Mean Platelet Volume 8.9 fl (7.4-10.4); Monocytes # 0.7 K/mm3 (0.1-1.0); Neutrophils # 12.5 K/mm3 (1.8-7.8); Neutrophils % 85.5 % (37.0-80.0); Platelet Count 210 K/mm3 (142-424); Red Blood Count 3.81 M/mm3 (4.20-5.40); Red Cell Distribution Width 14.4 % (11.5-17.5); White Blood Count 14.6 K/mm3 (4.8-10.8)
[2022-05-04 08:49] LABS: MANUAL DIFFERENTIAL MANUAL DIFFERENTIAL (MANUAL DIFF)
[2022-05-04 08:55] LABS: Anion Gap 11.6 mEq/L (5-15); Blood Urea Nitrogen 27 mg/dl (7-17); Calcium 8.6 mg/dl (8.4-10.2); Carbon Dioxide 27 mmol/L (22.0-30.0); Chloride 103 mmol/L (98-107); Creatinine Clearance Estimated 56 mL/min (50-200); Estimated Glomerular Filt Rate 49 ml/min (>60); GFR (African American) 59 ML/MIN (>60); Glucose 136 mg/dl (74-100); Potassium 5.6 mmoL/L (3.5-5.1); Sodium 136 mmol/L (136-145)
[2022-05-04 09:02] LABS: Lymphocytes % 2 % (10-50); Monocytes % 5 % (2-9); Neutrophils % 93 % (42-76); Total Cells Counted 100
[2022-05-04 09:03] LABS: Platelet Estimate Normal; RBC Morphology Normal
[2022-05-04 12:00] VITALS: BP 118/67; PULSE 71; RESP 16; TEMP 36.7; O2SAT 98
--- NOTE | 2022-05-04 13:08 | DIET.NUTRFU ---
Patient will discharge on bland diet, provided and reviewed handout. Her appetite is good, cooks for self or has prepared meals at home. Denies GI distress or weight changes. no other dietary needs at this time.
--- NOTE | 2022-05-04 14:10 | PC.NURSE ---
rounded on patient. patient is sitting up on side of bed. states she has no questions or concerns at this time. no needs voiced. encouraged her to ring out with any concerns or questions.
[2022-05-04 15:40] VITALS: BP 129/78; PULSE 68; RESP 16; TEMP 36.8; O2SAT 91
--- NOTE | 2022-05-04 16:10 | HMH.GSPN ---
Subjective Narrative: Patient had a CMP checked which revealed a potassium of 5.6. Medical consulting service has ordered Kayexalate. Progress Note: A&P (1) CAD (coronary artery disease) Status: Chronic (2) Chronic obstructive lung disease Status: Chronic (3) HTN (hypertension) Status: Chronic (4) Hypothyroidism Status: Chronic Assessment and Plan for All Diagnoses:: Patient was being prepared for discharge however her potassium is above normal. She is being treated for hyperkalemia by primary service with Kayexalate. She is scheduled to receive repeat potassium this afternoon. Discharge pending medical management of mild hyperkalemia. Exam Vital signs and Labs for Last 24 Hours: Temp Pulse Resp BP Pulse Ox 98.2 F 68 16 129/78 91 L 05/04/22 15:40 05/04/22 15:40 05/04/22 15:40 05/04/22 15:40 05/04/22 15:40 Laboratory Results - last 24 hr 05/04/22 08:35: WBC 14.6 H D, RBC 3.81 L, Hgb 11.6 L, Hct 33.8 L, MCV 88.6, MCH 30.3, MCHC 34.2, RDW 14.4, Plt Count 210, MPV 8.9, Neut % (Auto) 85.5 H, Lymph % (Auto) 6.7 L, [place] % (Auto) 5.0, Eos % (Auto) 2.7, Baso % (Auto) 0.1, Neut # (Auto) 12.5 H, Lymph # (Auto) 1.0, [place] # (Auto) 0.7, Eos # (Auto) 0.4, Baso # (Auto) 0.0, Total Counted 100, Neutrophils % (Manual) 93 H, Lymphocytes % (Manual) 2 L, Monocytes % (Manual) 5, Platelet Estimate Normal, RBC Morphology Normal 05/04/22 08:35: Sodium 136, Potassium 5.6 H, Chloride 103, Carbon Dioxide 27, Anion Gap 11.6, BUN 27 H D, Creatinine 1.10 H, Estimated Creat Clear 56, Estimated GFR 49 L, Est GFR ( Amer) 59, Glucose 136 H, Calcium 8.6 I & O for Last 24 hours: Intake & Output 05/02/22 05/03/22 05/04/22 05/05/22 11:59 11:59 11:59 11:59 Intake Total 2119 1154 / 1154 120 / 120 Output Total 0 / 0 Balance 2119 1154 / 1154 120 / 120 Weight 173 lb
[2022-05-04 17:13] LABS: Anion Gap 9.1 mEq/L (5-15); Blood Urea Nitrogen 26 mg/dl (7-17); Calcium 8.9 mg/dl (8.4-10.2); Carbon Dioxide 30 mmol/L (22.0-30.0); Chloride 105 mmol/L (98-107); Creatinine Clearance Estimated 61 mL/min (50-200); Estimated Glomerular Filt Rate 54 ml/min (>60); GFR (African American) 66 ML/MIN (>60); Glucose 116 mg/dl (74-100); Potassium 5.1 mmoL/L (3.5-5.1); Sodium 139 mmol/L (136-145)
--- NOTE | 2022-05-04 17:45 | PC.NURSE ---
Updated Florence Wilks and Dr. Anaya regarding BMP results. No new orders received at this time.
--- NOTE | 2022-05-04 18:13 | PC.NURSE ---
pt has done well t/o shift. independent to br. 20g in R AC with LR @ 75ml/hr. pt RA during the day, tolerating well,lungs clear. 4 op sites on abd from lap hernia repair, dsg cdi. no c/o pain this shift. labs drawn in the am showed a K of 5.6, pt given kayexalate. repeat labs showed K 5.1. possible dc tomorrow. pt doing well with no concerns at this time, call valentin personal items within reach
[2022-05-04 20:00] VITALS: BP 154/80; PULSE 70; RESP 22; TEMP 36.7; O2SAT 98
[2022-05-05 03:49] VITALS: BP 138/90; PULSE 66; RESP 16; TEMP 36.9; O2SAT 97
[2022-05-05 04:58] VITALS: BMI 33.9
[2022-05-05 06:34] LABS: Anion Gap 7.3 mEq/L (5-15); Blood Urea Nitrogen 22 mg/dl (7-17); Calcium 8.5 mg/dl (8.4-10.2); Carbon Dioxide 30 mmol/L (22.0-30.0); Chloride 107 mmol/L (98-107); Creatinine Clearance Estimated 61 mL/min (50-200); Estimated Glomerular Filt Rate 82 ml/min (>60); GFR (African American) 99 ML/MIN (>60); Glucose 93 mg/dl (74-100); Potassium 4.3 mmoL/L (3.5-5.1); Sodium 140 mmol/L (136-145)
--- NOTE | 2022-05-05 06:53 | PC.NURSE ---
No acute changes. Pt has rested well this shift. Has ambulated to BR without difficulty. DSGs C/D/I. No additional complaints stated. Call light within reach.
--- NOTE | 2022-05-05 07:09 | P.PN_ITS ---
Subjective Narrative: Currently resting. She has had no problems overnight per nursing. Progress Note: A&P (1) CAD (coronary artery disease) Status: Chronic (2) Chronic obstructive lung disease Status: Chronic (3) HTN (hypertension) Status: Chronic (4) Hypothyroidism Status: Chronic (5) H/O ventral hernia repair Status: Acute Assessment and plan: Overall, doing well status post hernia repair. Discharge home with outpatient follow-up (6) Hyperkalemia Status: Acute Assessment and plan: Potassium normal this morning after Kayexalate therapy. Exam Vital signs and Labs for Last 24 Hours: Temp Pulse Resp BP Pulse Ox 98.4 F 66 16 138/90 97 05/05/22 03:49 05/05/22 03:49 05/05/22 03:49 05/05/22 03:49 05/05/22 03:49 Laboratory Results - last 24 hr 05/04/22 08:35: WBC 14.6 H D, RBC 3.81 L, Hgb 11.6 L, Hct 33.8 L, MCV 88.6, MCH 30.3, MCHC 34.2, RDW 14.4, Plt Count 210, MPV 8.9, Neut % (Auto) 85.5 H, Lymph % (Auto) 6.7 L, [place] % (Auto) 5.0, Eos % (Auto) 2.7, Baso % (Auto) 0.1, Neut # ( Auto) 12.5 H, Lymph # (Auto) 1.0, [place] # (Auto) 0.7, Eos # (Auto) 0.4, Baso # (Auto) 0.0, Total Counted 100, Neutrophils % (Manual) 93 H, Lymphocytes % (Manual) 2 L, Monocytes % (Manual) 5, Platelet Estimate Normal, RBC Morphology Normal 05/04/22 08:35: Sodium 136, Potassium 5.6 H, Chloride 103, Carbon Dioxide 27, Anion Gap 11.6, BUN 27 H D, Creatinine 1.10 H, Estimated Creat Clear 56, Estimated GFR 49 L, Est GFR ( Amer) 59, Glucose 136 H, Calcium 8.6 05/04/22 16:35: Sodium 139, Potassium 5.1, Chloride 105, Carbon Dioxide 30, Anion Gap 9.1, BUN 26 H, Creatinine 1.00, Estimated Creat Clear 61, Estimated GFR 54 L, Est GFR ( Amer) 66, Glucose 116 H, Calcium 8.9 05/05/22 05:49: Sodium 140, Potassium 4.3, Chloride 107, Carbon Dioxide 30, Anion Gap 7.3, BUN 22 H, Creatinine 0.70 D, Estimated Creat Clear 61, Estimated GFR 82, Est GFR ( Amer) 99 D, Glucose 93, Calcium 8.5 I & O for Last 24 hours: Intake & Output 05/02/22 05/03/22 05/04/22 05/05/22 11:59 11:59 11:59 11:59 Intake Total 2119 1154 / 1154 703 / 703 Output Total 0 / 0 Balance 2119 1154 / 1154 703 / 703 Weight 173 lb 172 lb 11.2 oz - Constitutional no acute distress - *Routine Respiratory Exam Absent: respiratory distress - *Routine Cardiovascular Exam Absent: tachycardia
--- NOTE | 2022-05-05 07:15 | HMH.DCSUM ---
General - General Admission date:: 05/03/22 Discharge date: 05/05/22 HPI HPI: Patient is a 72-year-old female who presents for ventral hernia repair. She had initially been seen July 2019 for this. Had previously seen her for colonoscopy. She has a history of coronary artery disease, COPD (on nocturnal home oxygen), diabetes, CAD, HTN, aortic stenosis and insufficiency, history of pulmonary embolism, obstructive sleep apnea, renal insufficiency, obstructive sleep apena.? I had also discussed possible hernia surgery with her quite some time ago.? She has had a right periumbilical hernia for quite some time.? This has become progressively symptomatic to her.? Consideration was being given for laparoscopic repair. She has seen cardiology. Apparently she has been cleared for surgery. She had a previous CT scan done last year which revealed a right periumbilical hernia with a defect measuring 2 cm containing fat with a tiny adjacent umbilical hernia. I discussed the options with her. I feel that laparoscopic repair would be the best option with possible open repair. Likely would plan for postoperative admission for observation given her comorbidities. This is to be arranged. Hospital Course Hospital Course: The patient underwent laparoscopic ventral hernia repair with placement of 4 x 6 inch Bard Ventralex mesh (please see operative report for detail). Operative findings are forwarded below. Postoperatively, she convalesced well. She remained afebrile with stable normal vital signs. Mild to moderate hyperkalemia noted on postoperative day 1. This responded to Kayexalate treatment as per orders by consulting primary care. At the time of discharge she was without complaint. Her potassium had normalized. Operative findings:: She had a moderate size defect measuring 2 to 3 cm with an adjacent tiny umbilical hernia. There was a very large amount of chronically incarcerated omentum through this relatively small defect. Objective Vital signs: Temp Pulse Resp BP Pulse Ox 98.4 F 66 16 138/90 97 05/05/22 03:49 05/05/22 03:49 05/05/22 03:49 05/05/22 03:49 05/05/22 03:49 no acute distress - *Routine HEENT Exam Head: Present: normocephalic Eye: Present: EOMI ENT: Present: mucous membranes moist - *Routine Neck Exam Present: full ROM - Routine Chest/Breast/Axilla Exam Chest wall: Absent: tenderness - *Routine Respiratory Exam Absent: respiratory distress - *Routine Cardiovascular Exam Absent: tachycardia - *Routine Abdominal Exam Present: soft - *Routine Rectal Exam Patient deferred: visual exam - *Routine Exam Patient deferred: external exam - *Routine Extremities Exam Present: full ROM - Routine Back/Spine/Pelvis Exam Back/Spine: Present: full ROM - *Routine Skin Exam Absent: erythema - *Routine Neurological Exam Present: alert - Routine Psychiatric Exam Present: normal affect Results Labs on day of discharge: Labs from last 24 hours 05/05/22 05/04/22 05/04/22 05:49 16:35 08:35 WBC RBC Hgb Hct MCV MCH MCHC RDW Plt Count MPV Neut % (Auto) Lymph % (Auto) [place] % (Auto) Eos % (Auto) Baso % (Auto) Neut # (Auto) Lymph # (Auto) [place] # (Auto) Eos # (Auto) Baso # (Auto) Total Counted Neutrophils % (Manual) Lymphocytes % (Manual) Monocytes % (Manual) Platelet Estimate RBC Morphology Sodium 140 139 136 Potassium 4.3 5.1 5.6 H Chloride 107 105 103 Carbon Dioxide 30 30 27 Anion Gap 7.3 9.1 11.6 BUN 22 H 26 H 27 H D Creatinine 0.70 D 1.00 1.10 H Estimated Creat Clear 61 61 56 Estimated GFR 82 54 L 49 L Est GFR ( Amer) 99 D 66 59 Glucose 93 116 H 136 H Calcium 8.5 8.9 8.6 05/04/22 08:35 WBC 14.6 H D RBC 3.81 L Hgb 11.6 L Hct 33.8 L MCV 88.6 MCH 30.3 MCHC 34.2 RDW 14.4 Plt Count 210 MPV 8.9 Neut %
[2022-05-05 08:00] VITALS: BP 124/52; PULSE 74; RESP 16; TEMP 36.9; O2SAT 93
--- NOTE | 2022-05-05 08:44 | HMH.CONFU ---
Internal Medicine - PN: Subj *Date: 05/13/22 *Time: 06:08 Interval history: 72-year-old female patient sitting up in bed resting quietly, she denies any nausea/vomiting is tolerating liquids without any difficulty. She reports she is feeling better today than yesterday. Potassium yesterday 5.6, she did receive Kayexalate p.o. and potassium this morning is 4.3. Exam Vital signs and Labs for Last 24 Hours: Temp Pulse Resp BP Pulse Ox 98.4 F 74 16 124/52 L 93 L 05/05/22 08:00 05/05/22 08:00 05/05/22 08:00 05/05/22 08:00 05/05/22 08:00 Laboratory Results - last 24 hr 05/04/22 08:35: WBC 14.6 H D, RBC 3.81 L, Hgb 11.6 L, Hct 33.8 L, MCV 88.6, MCH 30.3, MCHC 34.2, RDW 14.4, Plt Count 210, MPV 8.9, Neut % (Auto) 85.5 H, Lymph % (Auto) 6.7 L, [place] % (Auto) 5.0, Eos % (Auto) 2.7, Baso % (Auto) 0.1, Neut # (Auto) 12.5 H, Lymph # (Auto) 1.0, [place] # (Auto) 0.7, Eos # (Auto) 0.4, Baso # (Auto) 0.0, Total Counted 100, Neutrophils % (Manual) 93 H, Lymphocytes % (Manual) 2 L, Monocytes % (Manual) 5, Platelet Estimate Normal, RBC Morphology Normal 05/04/22 08:35: Sodium 136, Potassium 5.6 H, Chloride 103, Carbon Dioxide 27, Anion Gap 11.6, BUN 27 H D, Creatinine 1.10 H, Estimated Creat Clear 56, Estimated GFR 49 L, Est GFR ( Amer) 59, Glucose 136 H, Calcium 8.6 05/04/22 16:35: Sodium 139, Potassium 5.1, Chloride 105, Carbon Dioxide 30, Anion Gap 9.1, BUN 26 H, Creatinine 1.00, Estimated Creat Clear 61, Estimated GFR 54 L, Est GFR ( Amer) 66, Glucose 116 H, Calcium 8.9 05/05/22 05:49: Sodium 140, Potassium 4.3, Chloride 107, Carbon Dioxide 30, Anion Gap 7.3, BUN 22 H, Creatinine 0.70 D, Estimated Creat Clear 61, Estimated GFR 82, Est GFR ( Amer) 99 D, Glucose 93, Calcium 8.5 I & O for Last 24 hours: Intake & Output 05/02/22 05/03/22 05/04/22 05/05/22 23:59 23:59 23:59 23:59 Intake Total 3034 / 3034 943 / 943 828 / 828 Output Total 0 / 0 Balance 3034 / 3034 943 / 943 828 / 828 Weight 173 lb 172 lb 11.2 oz - Constitutional no acute distress - *Routine HEENT Exam Head: Present: normocephalic Eye: Present: EOMI ENT: Present: mucous membranes moist - *Routine Neck Exam Present: trachea midline. Absent: tracheal deviation - *Routine Respiratory Exam Present: CTA bilaterally. Absent: accessory muscle use - *Routine Cardiovascular Exam Present: RRR - *Routine Abdominal Exam Present: soft, tenderness. Absent: firm - *Routine Extremities Exam Present: full ROM, pulses intact. Absent: cyanosis, clubbing - *Routine Skin Exam Present: intact, dry. Absent: cyanosis, erythema Comments: Steri-Strips to abdomen x3 - *Routine Neurological Exam Present: alert, oriented X3. Absent: motor deficit - Routine Psychiatric Exam Present: normal affect, normal thought process. Absent: tactile hallucinations Assessment and Plan (1) CAD (coronary artery disease) Status: Chronic Qualifiers: Coronary Disease-Associated Artery/Lesion type: [place] artery [place] vs. transplanted heart: [place] heart Associated angina: without angina Qualified Code(s): I25.10 - Atherosclerotic heart disease of [place] coronary artery without angina pectoris Category: Medical Code(s): I25.10 - Atherosclerotic heart disease of [place] coronary artery without angina pectoris (2) Chronic obstructive lung disease Status: Chronic Qualifiers: COPD type: emphysema Emphysema type: unspecified Qualified Code(s): J43.9 - Emphysema, unspecified Category: Medical Code(s): J44.9 - Chronic obstructive pulmonary disease, unspecified (3) HTN (hypertension) Status: Chronic Qualifiers: Hypertension type: essential hypertension Category: Medical Code(s): I10 - Essential (primary) hypertension (4) Hypothyroidism Status: Chronic Qualifiers: Hypothyroidism type: acquired Qualified Code(s): E03.9 - Hypothyroidism, unspecified Category: Medical Code(s): E03.9 - Hypo
--- NOTE | 2022-05-05 09:42 | PC.NURSE ---
pt taken down to vehicle by staff.
--- NOTE | 2022-05-06 11:14 | CARE MANAGER ---
Contacted patient related to follow up from hospital discharge. Patient states she is really sore and she does have a cough, but she is okay. She is trying not to take too many pain pills as she needs to have a bowel movement. She is going to eat some prunes to see if they will help. We discussed stool softeners if they don't help. She reports she is not having any sputum production at this time. She is using a pillow when she coughs to help brace her abdomen. She states some of the steri-strips are already coming off and we discussed how they will but just to monitor for infections. Denies any questions or concerns at this time. SERGIO Guillory
== END 2022-05-05 09:40 | disposition home or self-care (01) ==
LOC: 2ND 09:32
PROVIDERS: Admitting Provider Surgery; PCP Emergency Medicine; Visit Provider Surgery
PROC: 0WQF4ZZ Repair Abdominal Wall, Percutaneous Endoscopic Approach (ICD-10-PCS; CPT 49653; principal; 2022-05-03 07:30)
DX: K43.6 Other and unspecified ventral hernia with obstruction, without gangrene (principal); I25.10 Atherosclerotic heart disease of native coronary artery without angina pectoris; J44.9 Chronic obstructive pulmonary disease, unspecified; E11.9 Type 2 diabetes mellitus without complications; I10 Essential (primary) hypertension; Z87.891 Personal history of nicotine dependence; Z79.899 Other long term (current) drug therapy; Z20.822 Contact with and (suspected) exposure to COVID-19
CPT/HCPCS: 49653; G0378; 36415; 80048; 81001; 85007; 85025; 93005; 94640; 96374; C1781; C9803; J2405; U0003; U0005

== ENCOUNTER 2022-05-08 09:53 | Emergency (ER) | payer MEDICARE, MEDICAID, SELFPAY ==
[2022-05-08] VITALS (8 sets, daily range): BP systolic 126–163; BP diastolic 60–76; PULSE 60–78; RESP 16–20; TEMP 36.7–36.9; O2SAT 90–97; BMI 32.2
--- NOTE | 2022-05-08 10:24 | PC.NURSE ---
ED MD AT BEDSIDE TO EVALUATE PT
--- NOTE | 2022-05-08 10:30 | PC.NURSE ---
1030 PT UPDATED ON POC AT THIS TIME, QUESTIONS ENCOURAGED AND ANSWERED. PT AGREES TO POC, IV STARTED AND LABS COLLECTED. PT TOLERATED WELL
--- NOTE | 2022-05-08 10:36 | CT_ITS ---
PROCEDURE INFORMATION: Exam: CT Abdomen And Pelvis With Contrast Exam date and time: 05/08/2022 11:14 AM Age: 72 years old Clinical indication: Other: Bruising; Prior surgery; Surgery date: 3-7 days post-operative; Surgery type: 5 days ago had hernia repair; Additional info: Bruising to abd after surgery TECHNIQUE: Imaging protocol: Computed tomography of the abdomen and pelvis with contrast. Radiation optimization: All CT scans at this facility use at least one of these dose optimization techniques: automated exposure control; mA and/or kV adjustment per patient size (includes targeted exams where dose is matched to clinical indication); or iterative reconstruction. Contrast material: ISOVUE; Contrast volume: 70 ml; Contrast route: IV; COMPARISON: CT ABDOMEN WO CON 10/22/2020 1:07 PM FINDINGS: Liver: Normal. No mass. Gallbladder and bile ducts: Cholecystectomy. Pancreas: Normal. No ductal dilation. Spleen: Small low-density lesions in the spleen may reflect hemangiomas or pseudocysts. Adrenal glands: Normal. No mass. Kidneys and ureters: Bilateral renal cysts. No hydronephrosis. Stomach and bowel: Colonic diverticulosis without evidence of diverticulitis. No bowel obstruction. Appendix: No evidence of appendicitis. Intraperitoneal space: Unremarkable. No free air. No significant fluid collection. Vasculature: Heavy burden of atherosclerotic plaque in the abdominal aorta and branch vessels. No aneurysm. Lymph nodes: Unremarkable. No enlarged lymph nodes. Urinary bladder: Unremarkable as visualized. Reproductive: Hysterectomy. Bones/joints: Screw fixation of the right femoral neck. Soft tissues: Some stranding within the omentum likely reflects fat necrosis/omental infarction. There is a persistent periumbilical hernia containing some sterility indeterminate fluid. The hernia sac is mildly decreased in size from 10/22/2020, now measuring approximately 3.1 x 5.4 x 6.3 cm. The neck of the hernia sac measures approximately 1.2 cm on series 3, image 64. IMPRESSION: There appears to be a residual or recurrent right paraumbilical hernia sac containing some sterility indeterminate fluid with evidence of subjacent fat necrosis/omental infarction. COMMENTS: Consistent with the [employer]'s Incidental Findings Committee white paper (J Am Reyna Radiol 2018): Any incidental renal lesion less than 1 cm or classified as too small to characterize, or any incidental cystic renal lesion characterized as simple-appearing, is likely benign. No follow-up imaging is recommended for these lesions per consensus recommendations based on imaging criteria.
--- NOTE | 2022-05-08 10:40 | PC.NURSE ---
RADIOLOGY NOTIFIED AT THIS TIME FOR CT
--- NOTE | 2022-05-08 10:47 | HMH.EDGENADL ---
ED Disposition Clinical Impression: Postoperative ecchymosis Disposition: Home, Self-Care Condition on Discharge: Good Additional Instructions: Please keep your scheduled follow-up with your operative surgeon. Please return with any new or worsening symptoms. Referrals: Isaac Chavez MD [Primary Care Provider] - - Critical Care Critical Care Time: No Attestation: On 05/08/22, the high probability of a clinically significant, sudden or life threatening deterioration of the following system(s) required my full and direct attention, intervention and personal management. The time I documented below is in addition to time spent performing reported procedures but includes the following listed in this critical care notation. Medical Decision Making - Lyle Inquiry Pt receiving controlled substance: No Lyle was queried for this patient: No Vital Signs: 05/08/22 09:55 05/08/22 10:31 05/08/22 10:37 Temperature 98.4 F Temperature Source Oral Pulse Rate 60 61 Pulse Rate [Right Radial] 64 Respiratory Rate 20 16 Blood Pressure 149/67 H 149/67 H Blood Pressure [Right Arm] 163/76 H Blood Pressure Mean 88 Blood Pressure Mean [Right Arm] 105 Blood Pressure Source [Right Arm] Automatic Cuff Blood Pressure Position [Right Arm] Sitting 02 Sat by Pulse Oximetry 97 92 L 94 L Oxygen Delivery Method Room Air 05/08/22 11:01 05/08/22 11:31 05/08/22 12:01 Temperature Temperature Source Pulse Rate 78 60 60 Pulse Rate [Right Radial] Respiratory Rate Blood Pressure 140/64 126/60 133/64 Blood Pressure [Right Arm] Blood Pressure Mean 89 82 87 Blood Pressure Mean [Right Arm] Blood Pressure Source [Right Arm] Blood Pressure Position [Right Arm] 02 Sat by Pulse Oximetry 90 L 94 L 96 Oxygen Delivery Method 05/08/22 12:31 05/08/22 14:01 Temperature 98.0 F Temperature Source Oral Pulse Rate 60 60 Pulse Rate [Right Radial] Respiratory Rate 20 Blood Pressure 152/69 H 141/70 H Blood Pressure [Right Arm] Blood Pressure Mean 96 Blood Pressure Mean [Right Arm] Blood Pressure Source [Right Arm] Blood Pressure Position [Right Arm] 02 Sat by Pulse Oximetry Oxygen Delivery Method Room Air - Lab Data Lab Results 05/08/22 10:30: WBC 10.0, RBC 3.92 L, Hgb 11.8 L, Hct 35.2 L, MCV 89.6, MCH 30.1, MCHC 33.6, RDW 14.4, Plt Count 225, MPV 8.4, Neut % (Auto) 68.8, Lymph % (Auto) 18.0, [place] % (Auto) 7.4, Eos % (Auto) 5.0, Baso % (Auto) 0.8, Neut # (Auto) 6.9, Lymph # (Auto) 1.8, [place] # (Auto) 0.7, Eos # (Auto) 0.5 H, Baso # (Auto) 0.1 05/08/22 10:30: Sodium 140, Potassium 4.2, Chloride 103, Carbon Dioxide 34 H, Anion Gap 7.2, BUN 13, Creatinine 0.80, Estimated Creat Clear 58, Estimated GFR 70, Est GFR ( Amer) 85, Glucose 115 H, Calcium 9.0, Total Bilirubin 0.4, AST 32, ALT 29, Alkaline Phosphatase 85, Total Protein 6.5, Albumin 3.6, Globulin 2.9, Albumin/Globulin Ratio 1.2 05/08/22 12:45: Lactate 0.6 L Result diagrams: 05/08/22 10:30 05/08/22 10:30 Orders (Tests/Meds): ED MEDICATIONS Discontinued Medications Generic Name Dose Route Start Last Admin Trade Name Freq PRN Reason Stop Dose Admin Iopamidol 70 ml 05/08/22 11:24 05/08/22 11:25 Iopamidol-370 (76%);100ml Bottle IV 05/08/22 11:25 70 ml ONCE ONE Administration Sodium Chloride 10 ml 05/08/22 10:36 05/08/22 11:25 Sodium Chloride 0.9% 10ml Flush Syringe IV 06/07/22 10:35 10 ml NEEDED PRN Administration Maintain IV Site Sodium Chloride 10 ml 05/08/22 11:24 Sodium Chloride 0.9% 10ml Syr (Rad Only) IV 05/08/22 11:25 ONCE ONE Medical Decision Narrative: In review this is a 72-year-old female who presents with postoperative bruising. Hemodynamically stable and nontoxic-appearing. Physical exam is most pertinent for substantial abdominal bruising. With the rapid onset of this setting it warrants getting cross-sectional imaging to evaluate for any in
--- NOTE | 2022-05-08 10:48 | PC.NURSE ---
RADIOLOGY WAITING FOR LAB RESULTS BEFORE COMPLETING CT
--- NOTE | 2022-05-08 10:55 | PC.NURSE ---
Pt ambulating to bathroom at this time.
[2022-05-08 10:59] LABS: Basophils # 0.1 K/mm3 (0-0.2); Basophils % 0.8 % (0.1-2.0); Eosinophils # 0.5 K/mm3 (0.0-0.4); Hematocrit 35.2 % (37.0-47.0); Hemoglobin 11.8 g/dL (12.2-16.2); Lymphocytes # 1.8 K/mm3 (0.7-4.5); Mean Corpuscular HGB Conc 33.6 g/dL (31.8-35.4); Mean Corpuscular Hemoglobin 30.1 pg (27.0-31.2); Mean Corpuscular Volume 89.6 fl (81-99); Mean Platelet Volume 8.4 fl (7.4-10.4); Monocytes # 0.7 K/mm3 (0.1-1.0); Monocytes % 7.4 % (1.7-9.3); Neutrophils # 6.9 K/mm3 (1.8-7.8); Neutrophils % 68.8 % (37.0-80.0); Platelet Count 225 K/mm3 (142-424); Red Blood Count 3.92 M/mm3 (4.20-5.40); Red Cell Distribution Width 14.4 % (11.5-17.5)
--- NOTE | 2022-05-08 10:59 | PC.NURSE ---
PT ASSISTED BACK TO BED, CALL LIGHT IN PLACE. UPDATED ON POC. DENIES NEEDS AT THIS TIME
[2022-05-08 11:01] LABS: Alanine Aminotransferase 29 U/L (12-78); Albumin Level 3.6 g/dl (3.5-5.0); Albumin/Globulin Ratio 1.2 (1.1-1.8); Alkaline Phosphatase 85 U/L (38-126); Anion Gap 7.2 mEq/L (5-15); Aspartate Amino Transferase 32 U/L (14-36); Bilirubin,Total 0.4 mg/dl (0.2-1.3); Blood Urea Nitrogen 13 mg/dl (7-17); Carbon Dioxide 34 mmol/L (22.0-30.0); Chloride 103 mmol/L (98-107); Creatinine Clearance Estimated 58 mL/min (50-200); Estimated Glomerular Filt Rate 70 ml/min (>60); GFR (African American) 85 ML/MIN (>60); Globulin 2.9 g/dL (1.3-3.2); Glucose 115 mg/dl (74-100); Potassium 4.2 mmoL/L (3.5-5.1); Sodium 140 mmol/L (136-145); Total Protein,Serum 6.5 g/dl (6.3-8.2)
--- NOTE | 2022-05-08 11:16 | PC.NURSE ---
PT TO CT PER WC AT THIS TIME
--- NOTE | 2022-05-08 11:26 | PC.NURSE ---
Pt has returned from rad
--- NOTE | 2022-05-08 11:26 | PC.NURSE ---
PT RETURNED FROM CT
--- NOTE | 2022-05-08 12:29 | PC.NURSE ---
FAMILY AT BEDSIDE
--- NOTE | 2022-05-08 12:44 | PC.NURSE ---
[id number] DR CRANE PAGED [id number] ED MD SPEAKING WITH DR CRANE
--- NOTE | 2022-05-08 12:49 | PC.NURSE ---
1248 LACTIC COLLECTED AND SENT TO MD JHOAN AT BEDSIDE UPDATING PT AND DAUGHTER ON POC AT THIS TIME
[2022-05-08 13:09] LABS: Lactic Acid 0.6 mmol/L (0.7-2.1)
== END 2022-05-08 14:02 | disposition home or self-care (01) ==
PROVIDERS: Emergency Provider Student in an Organized Health Care Education/Training Program; PCP Emergency Medicine
DX: T14.8XXA Other injury of unspecified body region, initial encounter; T81.89XA Other complications of procedures, not elsewhere classified, initial encounter; Z79.899 Other long term (current) drug therapy; Z88.8 Allergy status to other drugs, medicaments and biological substances; J44.9 Chronic obstructive pulmonary disease, unspecified; K21.9 Gastro-esophageal reflux disease without esophagitis; E78.5 Hyperlipidemia, unspecified; I10 Essential (primary) hypertension; I26.99 Other pulmonary embolism without acute cor pulmonale; E03.9 Hypothyroidism, unspecified; N28.9 Disorder of kidney and ureter, unspecified; Z87.891 Personal history of nicotine dependence
CPT/HCPCS: 74177; 80053; 83605; 85025; 99284; Q9967

== ENCOUNTER → 2022-06-16 11:20 | Outpatient (CLI) | payer MEDICARE, MEDICAID, SELFPAY ==
[2022-06-16 12:52] LABS: Blood Urea Nitrogen 19 mg/dl (7-17); Estimated Glomerular Filt Rate 70 ml/min (>60); GFR (African American) 85 ML/MIN (>60)
== END ==
PROVIDERS: PCP Emergency Medicine; Visit Provider Surgery
DX: Z01.812 Encounter for preprocedural laboratory examination (principal)
CPT/HCPCS: 36415; 82565; 84520

== ENCOUNTER → 2022-06-22 08:50 | Outpatient (CLI) | payer MEDICARE, MEDICAID, SELFPAY ==
--- NOTE | 2022-06-22 08:50 | CT_ITS ---
FINAL REPORT CLINICAL HISTORY: abdominal cramping, bloating COMPARISON: May 08, 2022 and October 22, 2020 FINDINGS: Technique: The patient was injected with intravenous contrast. Oral contrast was administered. Axial images through the abdomen and pelvis were performed. This study was performed with techniques to keep radiation doses as low as reasonably achievable (ALARA). Individualized dose reduction techniques using automated exposure control or adjustment of mA and/or kV according to the patient's size were employed. Abdomen: There is mild bibasilar atelectasis or scarring. There are postoperative changes from cholecystectomy. The liver is normal in size and attenuation. The gallbladder is present. There are 2 low-attenuation masses in the spleen which are stable could represent hemangiomas or cysts. The adrenals are normal. The pancreas is unremarkable. Bilateral renal cysts are stable. The aorta is normal in caliber. There is no adenopathy. There is persistent but significantly improved stranding of the omentum deep to the umbilicus and in the right periumbilical subcutaneous tissues. There has been a significant decrease in the fluid in the right periumbilical subcutaneous tissues. This is consistent with improved postoperative/inflammatory change. No new inflammatory process is visualized. Pelvis: The appendix is not identified. There is sigmoid diverticulosis without evidence of diverticulitis. There is no bowel obstruction. There are postoperative changes from hysterectomy. The urinary bladder is unremarkable. There is no adenopathy. There are postoperative changes of the right femoral head and neck. IMPRESSION: Stable bilateral renal cysts. Stable masses in the spleen which could represent hemangiomas or cysts. Significantly improved stranding of the omentum as described with a significant decrease of fluid in the right periumbilical subcutaneous tissues. This is consistent with improved postoperative/inflammatory change. No new inflammatory process is visualized. Reviewed, Interpreted and Dictated by Jean Shi III, MD Transcribed by Kelle Hooper Authenticated and [facility]
== END ==
PROVIDERS: PCP Emergency Medicine; Visit Provider Surgery
DX: R10.9 Unspecified abdominal pain (principal)
CPT/HCPCS: 74177; Q9967

== ENCOUNTER → 2022-11-22 23:32 | Outpatient (CLI) | payer MEDICARE, MEDICAID, SELFPAY ==
[2022-11-22 18:48] LABS: Basophils # 0.1 K/mm3 (0-0.2); Basophils % 1.1 % (0.1-2.0); Eosinophils # 0.7 K/mm3 (0.0-0.4); Eosinophils % 7.5 % (0.1-12.0); Hematocrit 38.5 % (37.0-47.0); Hemoglobin 12.7 g/dL (12.2-16.2); Lymphocytes % 22.2 % (10-50); Mean Corpuscular HGB Conc 33.1 g/dL (31.8-35.4); Mean Corpuscular Hemoglobin 30.5 pg (27.0-31.2); Mean Platelet Volume 10.4 fl (7.4-10.4); Monocytes # 0.5 K/mm3 (0.1-1.0); Monocytes % 5.7 % (1.7-9.3); Neutrophils # 5.7 K/mm3 (1.8-7.8); Neutrophils % 63.5 % (37.0-80.0); Platelet Count 241 K/mm3 (142-424); Red Blood Count 4.18 M/mm3 (4.20-5.40); Red Cell Distribution Width 14.5 % (11.5-17.5)
[2022-11-22 18:49] LABS: Chloride 107 mmol/L (98-107); Potassium 4.9 mmoL/L (3.5-5.1); Sodium 142 mmol/L (136-145)
[2022-11-22 18:52] LABS: Alanine Aminotransferase 19 U/L (12-78); Albumin Level 4.2 g/dl (3.5-5.0); Albumin/Globulin Ratio 1.4 (1.1-1.8); Alkaline Phosphatase 84 U/L (38-126); Anion Gap 9.9 mEq/L (5-15); Aspartate Amino Transferase 26 U/L (14-36); Bilirubin,Total 0.5 mg/dl (0.2-1.3); Blood Urea Nitrogen 16 mg/dl (7-17); Calcium 8.9 mg/dl (8.4-10.2); Carbon Dioxide 30 mmol/L (22.0-30.0); Chol/HDL Ratio 4.5 (1-3.5); Cholesterol 162 mg/dl (140-200); Estimated Glomerular Filt Rate 61 ml/min (>60); GFR (African American) 74 ML/MIN (>60); Glucose 106 mg/dl (74-100); HDL Cholesterol 36 mg/dl (40-60); Total Protein,Serum 7.2 g/dl (6.3-8.2); Triglycerides 253 mg/dl (30-150); VLDL Cholesterol 51 mg/dL (0-40)
[2022-11-22 19:03] LABS: Direct LDL Cholesterol 86.09 mg/dL (100-129)
[2022-11-22 19:09] LABS: Free T4 (Free Thyroxine) 1.49 ng/dl (0.78-2.19)
[2022-11-22 19:14] LABS: 25-OH Vitamin D, Total < 12.8 ng/mL (30-100)
[2022-11-22 19:23] LABS: Thyroid Stimulating Hormone 0.71 uIU/mL (0.465-4.68)
== END ==
PROVIDERS: PCP Emergency Medicine; Visit Provider Emergency Medicine
DX: E55.9 Vitamin D deficiency, unspecified (principal); R53.83 Other fatigue; K59.00 Constipation, unspecified; E03.9 Hypothyroidism, unspecified
CPT/HCPCS: 80053; 80061; 82306; 84439; 84443; 85025

== ENCOUNTER → 2022-12-06 15:20 | Outpatient (CLI) | payer MEDICARE, MEDICAID, SELFPAY ==
--- NOTE | 2022-12-06 15:20 | CT_ITS ---
FINAL REPORT TECHNIQUE: Axial images were obtained from the lung apex to the mid abdomen by computed tomography. This study was performed with techniques to keep radiation doses as low as reasonably achievable (ALARA). Individualized dose reduction techniques using automated exposure control or adjustment of mA and/or kV according to the patient's size were employed. CLINICAL HISTORY: lung cancer screening, hx smoker for 47 years, smoked 2 packs per day when smoking, quit 10 years ago COMPARISON: 12/07/2021 FINDINGS: CHEST CT LOW DOSE CTDI vol (mGy): 2.90 DLP (mGy-cm): 91.16 There is no axillary adenopathy. There is no hilar or mediastinal adenopathy. The heart is normal in size. There is no pericardial or pleural effusion. Aortic and coronary artery calcification is identified. There are changes of emphysema. There is a 3 mm subpleural nodule in the left upper lobe on image 15, unchanged. There is a 3 mm right lower lobe nodule on image 49, unchanged. There is a 3 mm right middle lobe nodule on image 40, unchanged. There is a new, 6 mm right upper lobe nodule on image 15. Limited images of the upper abdomen are unremarkable. IMPRESSION: New, 6 mm right upper lobe nodule. Lung RADS category 3. Recommend 6 month follow-up low-dose chest CT. Reviewed, Interpreted and Dictated by Blank Sierra MD Transcribed by Betsy Fraser Authenticated and [facility]
== END ==
PROVIDERS: PCP Emergency Medicine; Visit Provider Internal Medicine Pulmonary Disease
DX: Z87.891 Personal history of nicotine dependence (principal); Z12.2 Encounter for screening for malignant neoplasm of respiratory organs
CPT/HCPCS: 71271

== ENCOUNTER → 2022-12-13 07:05 | Outpatient (CLI) | payer MEDICARE, MEDICAID, SELFPAY ==
[2022-12-13 07:13] VITALS: BMI 32.0
[2022-12-13 07:37] LABS: Basophils # 0.1 K/mm3 (0-0.2); Basophils % 1.5 % (0.1-2.0); Eosinophils # 0.6 K/mm3 (0.0-0.4); Hematocrit 39.2 % (37.0-47.0); Hemoglobin 12.8 g/dL (12.2-16.2); Lymphocytes # 1.6 K/mm3 (0.7-4.5); Lymphocytes % 19.6 % (10-50); Mean Corpuscular HGB Conc 32.7 g/dL (31.8-35.4); Mean Corpuscular Hemoglobin 29.3 pg (27.0-31.2); Mean Corpuscular Volume 89.7 fl (81-99); Mean Platelet Volume 9.2 fl (7.4-10.4); Monocytes # 0.5 K/mm3 (0.1-1.0); Monocytes % 6.4 % (1.7-9.3); Neutrophils # 5.3 K/mm3 (1.8-7.8); Neutrophils % 65.5 % (37.0-80.0); Platelet Count 256 K/mm3 (142-424); Red Blood Count 4.37 M/mm3 (4.20-5.40); Red Cell Distribution Width 14.7 % (11.5-17.5); White Blood Count 8.2 K/mm3 (4.8-10.8)
[2022-12-13 07:43] VITALS: BP 138/61; PULSE 76; RESP 20; TEMP 36.8; O2SAT 93
[2022-12-13 07:45] LABS: Alanine Aminotransferase 22 U/L (12-78); Albumin Level 4.3 g/dl (3.5-5.0); Albumin/Globulin Ratio 1.4 (1.1-1.8); Alkaline Phosphatase 86 U/L (38-126); Anion Gap 9.3 mEq/L (5-15); Aspartate Amino Transferase 29 U/L (14-36); Bilirubin,Total 0.5 mg/dl (0.2-1.3); Blood Urea Nitrogen 20 mg/dl (7-17); Calcium 8.8 mg/dl (8.4-10.2); Carbon Dioxide 28 mmol/L (22.0-30.0); Chloride 104 mmol/L (98-107); Creatinine Clearance Estimated 48 mL/min (50-200); Estimated Glomerular Filt Rate 44 ml/min (>60); GFR (African American) 53 ML/MIN (>60); Glucose 107 mg/dl (74-100); Potassium 4.3 mmoL/L (3.5-5.1); Sodium 137 mmol/L (136-145); Total Protein,Serum 7.3 g/dl (6.3-8.2)
[2022-12-13 07:50] VITALS: BP 138/83; PULSE 64; RESP 18; O2SAT 93
[2022-12-13 08:20] VITALS: BP 124/43; PULSE 67; RESP 18; O2SAT 98
== END ==
PROVIDERS: PCP Emergency Medicine; Visit Provider Nurse Practitioner Family
DX: I10 Essential (primary) hypertension (principal); I35.0 Nonrheumatic aortic (valve) stenosis; I35.2 Nonrheumatic aortic (valve) stenosis with insufficiency; N28.9 Disorder of kidney and ureter, unspecified; R06.00 Dyspnea, unspecified; R06.02 Shortness of breath; R07.9 Chest pain, unspecified; Z86.711 Personal history of pulmonary embolism; Z87.891 Personal history of nicotine dependence
CPT/HCPCS: 75574; 80053; 85025; Q9967

== ENCOUNTER 2023-02-16 08:43 | Day surgery (SDC) | payer MEDICARE, MEDICAID, SELFPAY ==
[2023-02-16] VITALS (12 sets, daily range): BP systolic 85–153; BP diastolic 31–81; PULSE 60–82; RESP 15–20; TEMP 36.9; O2SAT 90–97; BMI 32.8
--- NOTE | 2023-02-16 07:08 | IR_ITS ---
APPROVED REPORT Patient Location: Outpatient PROCEDURES Right heart catheterization Left heart catheterization Left ventriculogram Selective coronary angiogram INDICATION Abnormal echocardiogram, Angina pectoris, Suspected pulmonary hypertension, Right atrial enlargement Informed consent was obtained prior to the procedure. COMPLICATIONS None Estimated Blood Loss: Less than 10 ML TECHNIQUE One percent lidocaine was used to anesthetize the right anterior aspect of the right wrist. The right radial artery was accessed via the Seldinger technique and a 6 Tanzanian hydrophilic sheath was placed in the right radial artery. Following this one percent lidocaine was used to anesthetize the right anterior aspect of the right neck. The right internal jugular vein was accessed via the Seldinger technique and a 7 Tanzanian sheath was placed in the right internal jugular vein. Following this an arterial cocktail was administered using 5000U heparin, 2.5 mg verapamil, 1mg Lidocaine and 800mcg nitroglycerin into the right radial sheath. A papa catheter was used to perform left heart catheterization left ventriculogram and selective coronary angiography while a Henning-Kvng catheter was used to perform right heart catheterization. Saturations were obtained in the pulmonary artery and right atrium. At the end of the procedure the arterial sheath was removed good hemostasis was achieved using Traclet band. Patient was transferred to the postop holding area in stable condition for venous sheath removal. ANGIOGRAPHIC RESULTS The left main artery Normal The left anterior descending artery Has proximal 20 to 30% stenosis with mid vessel 20% stenoses The circumflex artery Nondominant with mild diffuse 10% luminal irregularities The right coronary artery Large dominant with mild diffuse vascular ectasia. There are proximal 20% stenosis with a mid vessel focal 30 to 40% stenosis and a distal 30 to 40% eccentric stenosis The MCLAUGHLIN ventriculogram reveals Hyperdynamic 75 to 80% The left ventricular end-diastolic pressure 15 mmHg Right atrial pressure 10 mmHg Pulmonary pressure 27/18 mmHg Pulmonary occlusion pressure 15 mmHg Hemoglobin 13.7 Aortic saturation 98% Cardiac output 4.5 L/min Cardiac index 2.6 IMPRESSION Mild to moderate nonflow limiting coronary artery disease Hyperdynamic ventricle consistent with severe diastolic dysfunction Mild pulmonary hypertension PLAN 1. Treatment of diastolic dysfunction hyperdynamic ventricle with negative inotropes 2. Risk factor modification Electronically signed by : Robert Chambers MD 02/16/2023 12:45:24
[2023-02-16 09:22] LABS: Basophils # 0.1 K/mm3 (0-0.2); Basophils % 0.9 % (0.1-2.0); Eosinophils # 0.5 K/mm3 (0.0-0.4); Eosinophils % 4.8 % (0.1-12.0); Hematocrit 43.1 % (37.0-47.0); Hemoglobin 13.7 g/dL (12.2-16.2); Lymphocytes # 1.7 K/mm3 (0.7-4.5); Lymphocytes % 17.7 % (10-50); Mean Corpuscular HGB Conc 31.7 g/dL (31.8-35.4); Mean Corpuscular Hemoglobin 29.1 pg (27.0-31.2); Mean Corpuscular Volume 91.9 fl (81-99); Mean Platelet Volume 8.9 fl (7.4-10.4); Monocytes # 0.6 K/mm3 (0.1-1.0); Neutrophils # 6.9 K/mm3 (1.8-7.8); Neutrophils % 70.7 % (37.0-80.0); Platelet Count 257 K/mm3 (142-424); Red Blood Count 4.69 M/mm3 (4.20-5.40); Red Cell Distribution Width 14.4 % (11.5-17.5); White Blood Count 9.8 K/mm3 (4.8-10.8)
[2023-02-16 09:30] LABS: Blood Urea Nitrogen 19 mg/dl (7-17); Calcium 9.2 mg/dl (8.4-10.2); Carbon Dioxide 29 mmol/L (22.0-30.0); Chloride 96 mmol/L (98-107); Creatinine Clearance Estimated 49 mL/min (50-200); Estimated Glomerular Filt Rate 44 ml/min (>60); GFR (African American) 53 ML/MIN (>60); Glucose 106 mg/dl (74-100); Sodium 139 mmol/L (136-145)
[2023-02-16 13:24] LABS: CATHL Arterial O2 SAT 72.3 % (90-100); CATHL Venous O2 SAT 74 % (75-80)
== END 2023-02-16 15:53 | disposition home or self-care (01) ==
PROVIDERS: PCP Emergency Medicine; Visit Provider Internal Medicine
DX: I25.10 Atherosclerotic heart disease of native coronary artery without angina pectoris (principal); Z86.711 Personal history of pulmonary embolism; I10 Essential (primary) hypertension; I35.0 Nonrheumatic aortic (valve) stenosis; I27.20 Pulmonary hypertension, unspecified
CPT/HCPCS: 80048; 82810; 85025; 93453; 99152; 99153; C1725; C1769; C1894; J1644; Q9967

== ENCOUNTER → 2023-03-08 11:21 | Outpatient (CLI) | payer MEDICARE, MEDICAID, SELFPAY ==
[2023-03-08 12:27] LABS: Anion Gap 16.6 mEq/L (5-15); Blood Urea Nitrogen 25 mg/dl (7-17); Carbon Dioxide 31 mmol/L (22.0-30.0); Chloride 100 mmol/L (98-107); Estimated Glomerular Filt Rate 44 ml/min (>60); GFR (African American) 53 ML/MIN (>60); Glucose 104 mg/dl (74-100); Potassium 4.6 mmoL/L (3.5-5.1); Sodium 143 mmol/L (136-145)
== END ==
PROVIDERS: PCP Emergency Medicine; Visit Provider Physician Assistant
DX: I10 Essential (primary) hypertension (principal); I25.10 Atherosclerotic heart disease of native coronary artery without angina pectoris; I35.0 Nonrheumatic aortic (valve) stenosis; I51.7 Cardiomegaly; N28.9 Disorder of kidney and ureter, unspecified; R06.09 Other forms of dyspnea; R94.30 Abnormal result of cardiovascular function study, unspecified; Z86.711 Personal history of pulmonary embolism; Z87.891 Personal history of nicotine dependence
CPT/HCPCS: 36415; 80048

== ENCOUNTER → 2023-06-10 15:14 | Outpatient (CLI) | payer MEDICARE, MEDICAID, SELFPAY ==
--- NOTE | 2023-06-10 15:15 | CT_ITS ---
FINAL REPORT TECHNIQUE: Axial images were obtained through the chest without contrast. CLINICAL HISTORY: 6-month follow-up nodules COMPARISON: 12/06/2022 FINDINGS: CT CHEST WITHOUT CONTRAST: This exam is compared to a prior CT dated 12/06/2022. Several nodules were noted on the prior CT that are compared. There was a 3 mm subpleural nodule in the left upper lobe that is not well seen on today's examination. There is an increase in size of the 6 mm nodule in the right upper lobe when compared to the prior exam. Today this is seen best on image 60 of series 3, and measures 7.5 x 6. A 3 mm right lower lobe nodule is stable, and is best seen on image #171 of series 3. Another 3 mm nodule in the right lower lobe is best seen on image #142 of series 3 and is also stable. There is scarring present in the right middle lobe and in the left lower lobe. IMPRESSION: There is an increase in size of the right upper lobe nodule from 6 mm to 7.5 mm. This is concerning for a possible neoplasm. The other nodules noted previously are either stable or not well seen. Would suggest a 3-month follow-up CT chest without contrast. This nodule is not large enough to biopsy, nor is it large enough to detect on PET/CT. Reviewed, Interpreted and Dictated by Jerry Acosta MD Transcribed by Conchita Chand Authenticated and [facility]
== END ==
PROVIDERS: PCP Emergency Medicine; Visit Provider Internal Medicine Pulmonary Disease
DX: R91.8 Other nonspecific abnormal finding of lung field (principal); R91.1 Solitary pulmonary nodule
CPT/HCPCS: 71250

== ENCOUNTER → 2023-09-14 17:28 | Outpatient (CLI) | payer MEDICARE, MEDICAID, SELFPAY ==
--- NOTE | 2023-09-14 17:36 | XR_ITS ---
PROCEDURE INFORMATION: Exam: XR Chest Exam date and time: 09/14/2023 5:30 PM Age: 73 years old Clinical indication: Cough and dyspnea and shortness of breath; Additional info: Littlejohn, SOA low o2 TECHNIQUE: Imaging protocol: Radiologic exam of the chest. Views: 2 views. COMPARISON: CT CHEST WO CON 06/10/2023 3:16 PM FINDINGS: Lungs: Streaky opacities in the lung bases compatible with retained secretions. Atelectasis vs infiltrate in the right lung base. Background emphysema/COPD. Pleural spaces: No large pleural effusion. No pneumothorax. Heart/Mediastinum: Cardiomediastinal silhouette is unchanged from prior exam. Bones/joints: No evidence of acute osseous abnormality. IMPRESSION: 1. Streaky opacities in the lung bases compatible with retained secretions. 2. Atelectasis vs infiltrate in the right lung base. 3. Background emphysema/COPD.
[2023-09-14 19:05] LABS: Basophils % 0.2 % (0.1-2.0); Hematocrit 39.5 % (37.0-47.0); Hemoglobin 13.1 g/dL (12.2-16.2); Lymphocytes # 0.9 K/mm3 (0.7-4.5); Lymphocytes % 8.4 % (10-50); Mean Corpuscular HGB Conc 33.3 g/dL (31.8-35.4); Mean Corpuscular Hemoglobin 30.7 pg (27.0-31.2); Mean Corpuscular Volume 92.2 fl (81-99); Mean Platelet Volume 10.3 fl (7.4-10.4); Monocytes # 0.5 K/mm3 (0.1-1.0); Monocytes % 4.5 % (1.7-9.3); Neutrophils % 86.9 % (37.0-80.0); Platelet Count 208 K/mm3 (142-424); Red Blood Count 4.28 M/mm3 (4.20-5.40); Red Cell Distribution Width 15.1 % (11.5-17.5); White Blood Count 10.3 K/mm3 (4.8-10.8)
[2023-09-14 19:07] LABS: MANUAL DIFFERENTIAL MANUAL DIFFERENTIAL (MANUAL DIFF)
[2023-09-14 19:17] LABS: Alanine Aminotransferase 28 U/L (12-78); Albumin Level 4.1 g/dl (3.5-5.0); Albumin/Globulin Ratio 1.5 (1.1-1.8); Alkaline Phosphatase 66 U/L (38-126); Anion Gap 12.2 mEq/L (5-15); Aspartate Amino Transferase 28 U/L (14-36); Bilirubin,Total 0.5 mg/dl (0.2-1.3); Blood Urea Nitrogen 18 mg/dl (7-17); Calcium 8.8 mg/dl (8.4-10.2); Carbon Dioxide 24 mmol/L (22.0-30.0); Chloride 105 mmol/L (98-107); Estimated Glomerular Filt Rate 70 ml/min (>60); GFR (African American) 85 ML/MIN (>60); Globulin 2.8 g/dL (1.3-3.2); Glucose 131 mg/dl (74-100); Potassium 4.2 mmoL/L (3.5-5.1); Sodium 137 mmol/L (136-145); Total Protein,Serum 6.9 g/dl (6.3-8.2)
[2023-09-14 19:41] LABS: Lymphocytes % 8 % (10-50); Monocytes % 3 % (2-9); Neutrophils % 89 % (42-76); Platelet Estimate Normal; RBC Morphology Normal; Total Cells Counted 100
== END ==
PROVIDERS: Visit Provider Family Medicine
DX: J40 Bronchitis, not specified as acute or chronic (principal); J44.1 Chronic obstructive pulmonary disease with (acute) exacerbation; R06.00 Dyspnea, unspecified; R06.02 Shortness of breath; R05.9 Cough, unspecified; Z00.00 Encounter for general adult medical examination without abnormal findings
CPT/HCPCS: 71046; 80053; 85007; 85025

== ENCOUNTER → 2023-09-14 22:33 | Outpatient (CLI) | payer MEDICARE, MEDICAID, SELFPAY ==
[2023-09-15 10:59] LABS: Hemoglobin A1C 6.3 % (4.0-6.0)
== END ==
PROVIDERS: PCP Family Medicine; Visit Provider Family Medicine
DX: R06.09 Other forms of dyspnea (principal); R05.3 Chronic cough; J44.1 Chronic obstructive pulmonary disease with (acute) exacerbation; R73.09 Other abnormal glucose
CPT/HCPCS: 71046; 80053; 83036; 85007; 85025

== ENCOUNTER → 2023-09-15 15:00 | Outpatient (CLI) | payer MEDICARE, MEDICAID, SELFPAY ==
--- NOTE | 2023-09-15 15:10 | CT_ITS ---
FINAL REPORT TECHNIQUE: Axial images were obtained from the lung apex to the mid abdomen by computed tomography. Coronal reformatted images were obtained. This study was performed with techniques to keep radiation doses as low as reasonably achievable, (ALARA). Individualized dose reduction techniques using automated exposure control or adjustment of mA and/or kV according to the patient''s size were employed. CLINICAL HISTORY: 3-month follow-up, shortness of breath, copd COMPARISON: 06/10/2023 FINDINGS: There is no axillary adenopathy. There is no hilar or mediastinal adenopathy. Heart size is normal. There is no pericardial or pleural effusion. Previously noted right upper lobe nodule now measures 9 mm, was 8 mm, best seen on image 11 of series 2. There is a 2 mm nodule in the lateral right upper lobe on image 38. There are multiple 3 mm right lower lobe nodules which are stable. Limited images of the upper abdomen demonstrate left renal cyst. Postcholecystectomy. IMPRESSION: Slight further increase in size of right upper lobe nodule. Recommend PET/CT Reviewed, Interpreted and Dictated by Jean Shi III, MD Transcribed by Lucy Dye Authenticated and [facility]
== END ==
LOC: RAD 15:02
PROVIDERS: PCP Emergency Medicine; Visit Provider Internal Medicine Pulmonary Disease
DX: R91.8 Other nonspecific abnormal finding of lung field (principal)
CPT/HCPCS: 71250

== ENCOUNTER → 2023-09-26 12:58 | Outpatient (CLI) | payer MEDICARE, MEDICAID, SELFPAY ==
[2023-09-26 18:58] LABS: Alanine Aminotransferase 27 U/L (12-78); Albumin Level 3.9 g/dl (3.5-5.0); Albumin/Globulin Ratio 1.4 (1.1-1.8); Alkaline Phosphatase 78 U/L (38-126); Anion Gap 8.6 mEq/L (5-15); Aspartate Amino Transferase 29 U/L (14-36); Bilirubin,Total 0.6 mg/dl (0.2-1.3); Blood Urea Nitrogen 21 mg/dl (7-17); Calcium 8.5 mg/dl (8.4-10.2); Carbon Dioxide 29 mmol/L (22.0-30.0); Chloride 103 mmol/L (98-107); Chol/HDL Ratio 3.2 (1-3.5); Cholesterol 181 mg/dl (140-200); Estimated Glomerular Filt Rate 48 ml/min (>60); GFR (African American) 59 ML/MIN (>60); Globulin 2.8 g/dL (1.3-3.2); Glucose 92 mg/dl (74-100); HDL Cholesterol 57 mg/dl (40-60); Potassium 4.6 mmoL/L (3.5-5.1); Sodium 136 mmol/L (136-145); Total Protein,Serum 6.7 g/dl (6.3-8.2); Triglycerides 188 mg/dl (30-150); VLDL Cholesterol 38 mg/dL (0-40)
[2023-09-26 19:08] LABS: Direct LDL Cholesterol 95.72 mg/dL (100-129)
[2023-09-26 19:27] LABS: Thyroid Stimulating Hormone 0.55 uIU/mL (0.465-4.68)
== END ==
LOC: LAB.DROPOF 10-05 12:59
PROVIDERS: PCP Internal Medicine; Visit Provider Internal Medicine
DX: E11.9 Type 2 diabetes mellitus without complications (principal); E03.9 Hypothyroidism, unspecified; Z79.84 Long term (current) use of oral hypoglycemic drugs
CPT/HCPCS: 80053; 80061; 82043; 84443

== ENCOUNTER → 2024-01-31 08:04 | Day surgery (SDC) | payer MEDICARE, MEDICAID, SELFPAY ==
--- NOTE | 2024-02-01 10:53 | SUR.PREOP ---
Pt. procedure moved to 10 am arrival. Pt. did not answer preop call and did not have a voicemail. Pt. arrived at 8 am and waited until 930 am and decided to did not want to wait any longer for her procedure. Discussed with her calling Dr. Neves's office to reschedule procedure for next available date.
== END | disposition home or self-care (01) ==
PROVIDERS: PCP Internal Medicine; Visit Provider Ophthalmology
PROC: (CPT 66821; principal; 2024-01-31 12:30)
DX: Z53.20 Procedure and treatment not carried out because of patient's decision for unspecified reasons (principal)

== ENCOUNTER 2024-04-09 11:02 | Outpatient (CLI) | payer MEDICARE, MEDICAID, SELFPAY ==
[2024-04-09 19:51] LABS: Alanine Aminotransferase 20 U/L (12-78); Albumin Level 4.1 g/dl (3.5-5.0); Albumin/Globulin Ratio 1.5 (1.1-1.8); Alkaline Phosphatase 93 U/L (38-126); Anion Gap 12.5 mEq/L (5-15); Aspartate Amino Transferase 27 U/L (14-36); Bilirubin,Total 0.7 mg/dl (0.2-1.3); Blood Urea Nitrogen 18 mg/dl (7-17); Calcium 9.4 mg/dl (8.4-10.2); Carbon Dioxide 31 mmol/L (22.0-30.0); Chloride 100 mmol/L (98-107); Chol/HDL Ratio 4.3 (1-3.5); Cholesterol 188 mg/dl (140-200); Estimated Glomerular Filt Rate 54 ml/min (>60); GFR (African American) 65 ML/MIN (>60); Globulin 2.8 g/dL (1.3-3.2); Glucose 101 mg/dl (74-100); HDL Cholesterol 44 mg/dl (40-60); Potassium 4.5 mmoL/L (3.5-5.1); Sodium 139 mmol/L (136-145); Total Protein,Serum 6.9 g/dl (6.3-8.2); Triglycerides 180 mg/dl (30-150); VLDL Cholesterol 36 mg/dL (0-40)
[2024-04-09 20:02] LABS: Direct LDL Cholesterol 103.59 mg/dL (100-129)
[2024-04-09 20:20] LABS: Thyroid Stimulating Hormone 1.09 uIU/mL (0.465-4.68)
[2024-04-09 21:16] LABS: Hemoglobin A1C 6.4 % (4.0-6.0)
== END 2024-04-09 23:59 | disposition home or self-care (01) ==
LOC: LAB.DROPOF 04-10 11:03
PROVIDERS: PCP Internal Medicine; Visit Provider Internal Medicine
DX: I10 Essential (primary) hypertension (principal); E11.69 Type 2 diabetes mellitus with other specified complication; E66.9 Obesity, unspecified; Z79.84 Long term (current) use of oral hypoglycemic drugs; Z87.891 Personal history of nicotine dependence; Z68.32 Body mass index [BMI] 32.0-32.9, adult
CPT/HCPCS: 80053; 80061; 83036; 84443

== ENCOUNTER 2024-04-23 12:56 | Outpatient (CLI) | payer MEDICARE, MEDICAID, SELFPAY ==
--- NOTE | 2024-04-23 12:57 | CT_ITS ---
FINAL REPORT TECHNIQUE: Thin section axial images were obtained from the lung apices through the upper abdomen without contrast. This study was performed with techniques to keep radiation doses as low as reasonably achievable (ALARA). Individualized dose reduction techniques using automated exposure control or adjustment of mA and/or kV according to the patient's size were employed. CLINICAL HISTORY: Lung nodule follow-up COMPARISON: 09/15/2023 FINDINGS: There is no mediastinal, hilar, or axillary lymphadenopathy. No pleural or pericardial effusion. Emphysema is noted. Interval increase in size right upper lobe nodule now measuring 13 x 5 mm, was 9 x 4 mm. Stable 4 mm inferior right upper lobe nodule on image 41. Stable 3 mm right lower lobe nodule on image 50. No new nodule. No areas of consolidation.. Limited unenhanced evaluation of the upper abdomen demonstrates an indeterminate left renal lesion. No acute findings. There is no acute osseous abnormality. Stable compression deformity of T12. IMPRESSION: Interval increased of a right upper lobe pulmonary nodule, malignancy is a concern. Recommend PET-CT. Reviewed, Interpreted and Dictated by Blank Sierra MD Transcribed by Lucy Dye Authenticated and [facility]
== END 2024-04-23 23:59 | disposition home or self-care (01) ==
LOC: RAD 12:57
PROVIDERS: PCP Internal Medicine; Visit Provider Internal Medicine Pulmonary Disease
DX: R91.8 Other nonspecific abnormal finding of lung field (principal)
CPT/HCPCS: 71250

== ENCOUNTER 2024-07-23 18:45 | Outpatient (CLI) | payer MEDICARE, MEDICAID, SELFPAY ==
[2024-07-23 19:51] LABS: Chol/HDL Ratio 3.5 (1-3.5); Cholesterol 209 mg/dl (140-200); HDL Cholesterol 59 mg/dl (40-60); Triglycerides 232 mg/dl (30-150); VLDL Cholesterol 46 mg/dL (0-40)
[2024-07-23 20:02] LABS: Direct LDL Cholesterol 102.11 mg/dL (100-129); Hemoglobin A1C 6.6 % (4.0-6.0)
== END 2024-07-23 23:59 | disposition home or self-care (01) ==
LOC: LAB 18:47
PROVIDERS: PCP Internal Medicine; Visit Provider Internal Medicine
DX: E66.9 Obesity, unspecified (principal); E11.69 Type 2 diabetes mellitus with other specified complication; I10 Essential (primary) hypertension
CPT/HCPCS: 80061; 83036

== ENCOUNTER 2024-11-07 09:08 | Outpatient (CLI) | payer MEDICARE, MEDICAID, SELFPAY ==
[2024-11-07 18:21] LABS: Alanine Aminotransferase 21 U/L (12-78); Albumin Level 4.1 g/dl (3.5-5.0); Albumin/Globulin Ratio 1.6 (1.1-1.8); Alkaline Phosphatase 85 U/L (38-126); Anion Gap 12.1 mEq/L (5-15); Aspartate Amino Transferase 30 U/L (14-36); Bilirubin,Total 0.4 mg/dl (0.2-1.3); Blood Urea Nitrogen 17 mg/dl (7-17); Carbon Dioxide 29 mmol/L (22.0-30.0); Chloride 105 mmol/L (98-107); Chol/HDL Ratio 5.3 (1-3.5); Cholesterol 217 mg/dl (140-200); Estimated Glomerular Filt Rate 61 ml/min (>60); GFR (African American) 74 ML/MIN (>60); Globulin 2.5 g/dL (1.3-3.2); Glucose 84 mg/dl (74-100); HDL Cholesterol 41 mg/dl (40-60); Potassium 4.1 mmoL/L (3.5-5.1); Sodium 142 mmol/L (136-145); Total Protein,Serum 6.6 g/dl (6.3-8.2); Triglycerides 249 mg/dl (30-150); VLDL Cholesterol 50 mg/dL (0-40)
[2024-11-07 18:33] LABS: Direct LDL Cholesterol 128.09 mg/dL (100-129)
[2024-11-07 18:37] LABS: Hemoglobin A1C 6.4 % (4.0-6.0)
== END 2024-11-07 23:59 | disposition home or self-care (01) ==
LOC: LAB.DROPOF 11-08 09:09
PROVIDERS: PCP Internal Medicine; Visit Provider Internal Medicine
DX: E11.69 Type 2 diabetes mellitus with other specified complication (principal); E66.9 Obesity, unspecified; E78.2 Mixed hyperlipidemia; E03.9 Hypothyroidism, unspecified
CPT/HCPCS: 80053; 80061; 83036

== ENCOUNTER 2024-12-10 19:08 | Emergency (ER) | payer MEDICARE, MEDICAID, SELFPAY ==
[2024-12-10 19:12] VITALS: BP 225/96; PULSE 82; RESP 22; O2SAT 81; BMI 31.6
--- NOTE | 2024-12-10 20:28 | ED_ITS ---
<Statement entered by Jade Felix DO - 12/11/24 00:36> I was consulted by the OMKAR, and we discussed the complexity of the problems being addressed. I approved the treatment and management plan for this patient's care in the emergency department, thus performing a substantive portion of the medical decision making. Jade Felix DO Discharge Plan Disposition Patient Disposition: Home, Self-Care Condition: Good Prescriptions Prescriptions: New doxycycline hyclate 100 mg capsule 100 mg PO BID 10 Days Qty: 20 0RF prednisone 50 mg tablet 50 mg PO DAILY 5 Days Qty: 5 0RF No Action ibuprofen 600 mg tablet 600 mg PO prednisone 10 mg tablets,dose pack See Rx Instructions PO PER PKG DIR Qty: 21 0RF Rx Instructions: PO PER PKG DIR albuterol sulfate 90 mcg/actuation HFA aerosol inhaler See Rx Instructions .ROUTE .COMPLEX Qty: 9 0RF Dose Instruction: INHALE 2 PUFFS BY MOUTH EVERY 6 HOURS FOR BREATHING PROBLEMS Rx Instructions: INHALE 2 PUFFS BY MOUTH EVERY 6 HOURS FOR BREATHING PROBLEMS cholecalciferol (vitamin D3) 250 mcg (10,000 unit) capsule 250 mcg PO DAILY Qty: 90 1RF hydrochlorothiazide 12.5 mg tablet 12.5 mg PO DAILY Patient Comments: TAKE 1 TABLET BY MOUTH DAILY FOR FLUID azelastine 205.5 mcg (0.15 %) spray,non-aerosol 2 spray intranasal BID 90 Days Qty: 30 3RF Rx Instructions: administer into each nostril ipratropium-albuterol 0.5 mg-3 mg(2.5 mg base)/3 mL solution for nebulization See Rx Instructions .ROUTE .COMPLEX Qty: 360 0RF Dose Instruction: USE 1 AMPULE IN NEBULIZER EVERY 8 HOURS FOR BREATHING PROBLEMS Rx Instructions: USE 1 AMPULE IN NEBULIZER EVERY 8 HOURS FOR BREATHING PROBLEMS (DME) Blood Glucose Test Strip See Rx Instructions .Route Qty: 25 0RF Rx Instructions: As directed (DME) lancets [Accu-Chek Softclix Lancets] Misc See Rx Instructions .Route Qty: 100 0RF Rx Instructions: As directed (DME) blood-glucose meter [Blood Glucose Monitoring] Kit See Rx Instructions .Route Qty: 1 0RF Rx Instructions: As directed levothyroxine 100 mcg tablet 100 mcg PO DAILY Qty: 90 3RF omeprazole 40 mg capsule,delayed release(DR/EC) See Rx Instructions .ROUTE .COMPLEX Qty: 90 3RF Rx Instructions: Take 1 capsule by mouth once daily amlodipine 5 mg tablet See Rx Instructions .ROUTE .COMPLEX Qty: 90 3RF Dose Instruction: Take 1 tablet by mouth once daily Rx Instructions: Take 1 tablet by mouth once daily Dani Aerosphere 160-9-4.8 mcg/actuation HFA aerosol inhaler See Rx Instructions .ROUTE .COMPLEX Qty: 33 0RF Dose Instruction: Inhale 2 puffs by mouth twice daily Rx Instructions: Inhale 2 puffs by mouth twice daily losartan 100 mg tablet See Rx Instructions .ROUTE .COMPLEX Qty: 90 1RF Dose Instruction: Take 1 tablet by mouth once daily for blood pressure Rx Instructions: Take 1 tablet by mouth once daily for blood pressure pravastatin 40 mg tablet 80 mg PO DAILY 90 Days Qty: 180 3RF ezetimibe [Zetia] 10 mg tablet 10 mg PO DAILY Qty: 30 2RF bisoprolol fumarate 5 mg tablet 5 mg PO DAILY Qty: 90 1RF Referrals Follow up/Referrals: Ronak Finnegan DO [Primary Care Provider] - See instructions Activity Restrictions/Add. Instructions Additional Instructions/Restrictions: I sent a prescription in for steroids and antibiotic to your pharmacy. Please take the antibiotic and steroid till they are gone. Please follow-up with your PCP within 48 hours for recheck or if you have any new or worsening signs or symptoms return to the ER as needed. Clinical Impressions Clinical Impression: COPD with acute exacerbation Print Language Print Language: Estonian Discharge ED Provider: Jade Felix HPI <ESTIVEN Michele - Last Filed: 12/10/24 22:33> General Chief Complaint: Shortness of Breath/Dyspnea Stated Complaint: SOA Time Seen by Provider: 12/10/24 20:28 Mode of Arrival: Ambulatory Source of Information: Patient Description of Symptoms (Recalled from ER Triage Doc. by RN): Pt is having hot flashes and feels short-winded Pt states she feels SOB even wearing O2 at home. Pt states she's dx with COPD. Pt also has an inhaler that she uses. Pt is at 81% RA in the triage room. History of Present Illness HPI narrative: Patient presents for evaluation of dyspnea. Patient at baseline has COPD and is chronically on oxygen at home at 2 L and has as needed nebulizer machine. Over the last 2 weeks she has had increasing shortness of breath now even at rest. Her oxygen requirement has not gone up and she has started to utilize her nebulizer more frequently. She denies any fever or chest pain hemoptysis hematochezia melena increasing weight gain nausea vomiting diarrhea. Related Data Home Medications ?Medication ?Instructions ?Recorded ?Confirmed hydrochlorothiazide 12.5 mg tablet 12.5 mg PO DAILY 06/28/23 11/07/24 ibuprofen 600 mg tablet 600 mg PO 09/26/23 11/07/24 Previous Rx's ?Medication ?Instructions ?Recorded ipratropium 0.5 mg-albuterol 3 mg See Rx Instructions .Route 06/02/23 (2.5 mg base)/3 mL nebulization .COMPLEX #360 mL soln blood sugar diagnostic (Blood #25 ea 09/15/23 Glucose Test strips) blood-glucose meter (Blood Glucose #1 ea 09/15/23 Monitoring kit) lancets (Accu-Chek Softclix #100 ea 09/15/23 Lancets) levothyroxine 100 mcg tablet 100 mcg PO DAILY thyroid #90 tabs 01/17/24 omeprazole 40 mg capsule,delayed See Rx Instructions .Route 01/17/24 release .COMPLEX Reflux/Acid reflux #90 caps amlodipine 5 mg tablet See Rx Instructions .Route 04/26/24 .COMPLEX #90 tabs azelastine 205.5 mcg (0.15 %) 2 spray intranasal BID 90 days #30 05/24/24 nasal spray mL budesonide 160 mcg-glycopyr 9 See Rx Instructions .Route 06/13/24 mcg-formot 4.8 mcg/actuation HFA .COMPLEX #33 grams inhaler (Breztri Aerosphere) losartan 100 mg tablet See Rx Instructions .Route 08/30/24 .COMPLEX #90 tabs albuterol sulfate 90 mcg/actuation See Rx Instructions .Route 11/07/24 aerosol inhaler .COMPLEX #9 grams cholecalciferol (vitamin D3) 250 250 mcg PO DAILY #90 caps 11/07/24 mcg (10,000 unit) capsule prednisone 10 mg tablets in a dose See Rx Instructions PO PER PKG DIR 11/07/24 pack #21 tabs pravastatin 40 mg tablet 80 mg (2 x 40 mg) PO DAILY 90 days 11/08/24 #180 tabs ezetimibe 10 mg tablet (Zetia) 10 mg PO DAILY #30 tabs 11/12/24 bisoprolol fumarate 5 mg tablet 5 mg PO DAILY Hypertension #90 tabs 11/30/24 doxycycline hyclate 100 mg capsule 100 mg PO BID 10 days #20 caps 12/10/24 prednisone 50 mg tablet 50 mg PO DAILY 5 days #5 tabs 12/10/24 Allergies Allergy/AdvReac Type Severity Reaction Status Date / Time lisinopril (LISINOPRIL) Allergy ITCH Verified 11/07/24 15:16 [facility] <ESTIVEN Michele - Last Filed: 12/10/24 22:33> [facility] Disclaimer: The information contained in this section may have been updated after the patient was seen, as this information can be updated by other users. Medical History Solid nodule of lung greater than 8 mm in diameter Nodule of right lung Right atrial enlargement COPD (chronic obstructive pulmonary disease) Hemorrhoid Sleep apnea Chronic cough Bronchitis History of gastroesophageal reflux (GERD) History of cataract Allergies Hyperlipidemia Cataract Dyspnea Chest pain Screening for lung cancer Pulmonary emphysema Stopped smoking with greater than 30 pack year history Peripheral eosinophilia Allergic rhinitis, unspecified Nocturnal hypoxemia Dyspnea on exertion Mild aortic stenosis Dyspnea Hypothyroidism Hx of pulmonary embolus Chronic obstructive lung disease HTN (hypertension) Surgical History History of partial hysterectomy History of colonoscopy History of carpal tunnel release H/O ventral hernia repair Family History Father Heart attack Mother Heart attack Sister Heart attack Social History Smoking Status: Former smoker tobacco type: cigarettes years smoked: 40 alcohol intake: former counseling provided: none substance use type: denies use current occupational status: retired Travel in the last 8 weeks: None household members: none housing: apartment current occupational exposures/hazards: No caffeine: Yes Have you lived/traveled outside US in past 30 days?: No Contact w/someone who lives/traveled outside US past 30 days?: No Exposure to someone with infectious disease in past 14 days?: No Do you have a fever (greater than 100.4 F or 38 C)?: No Have you tested positive for COVID-19: No Exposed to someone with COVID-19 in past 14 days?: No Do you have a sore throat?: No Do you have a cough?: No Do you have any weakness?: No Do you have any diarrhea?: No Are you experiencing any unusual bleeding?: No Do you have any muscle aches/pain?: No Do you have any abdominal pain?: No Are you experiencing loss of taste or smell?: No Other Medical History Have you received the Flu Vaccine for this season: Yes Have you received the Pneumonia Vaccine: Yes <ESTIVEN Michele - Last Filed: 12/10/24 22:33> ROS Obtained: Yes Systems reviewed as appropriate & no additional complaints except as documented Physical Exam <ESTIVEN Michele - Last Filed: 12/10/24 22:33> General General appearance: alert and in no apparent distress Respiratory Respiratory exam: Present wheezes and prolonged expiratory phase (Pursed lip breathing); Absent normal lung sounds bilaterally, respiratory distress or accessory muscle use Cardiovascular Cardiovascular exam: Present regular rate Neurological Exam Neurological exam: Present alert and oriented X3 HEART Score <ESTIVEN Michele Last Filed: 12/10/24 22:33> HEART Score HEART Score assessment performed?: Yes History (anamnesis): Slightly suspicious ECG: Non-specific disturbance Age: >65 years Risk factors: 3 or more risk factors Troponin: </= normal limit HEART Score: 5 Critical Care <ESTIVEN Michele Last Filed: 12/10/24 22:33> Critical Care Time Critical Care Time: Yes Attestation: On 12/10/24, the high probability of a clinically significant, sudden or life threatening deterioration of the following system(s) required my full and direct attention, intervention and personal management. The time I documented below is in addition to time spent performing reported procedures but includes the following listed in this critical care notation. Total Time Total Critical Care Time: 35 Medical Decision Making <ESTIVEN Michele Last Filed: 12/10/24 22:33> Medical Records Medical records reviewed: Yes I reviewed the patient's medical records. Lyle Inquiry Pt receiving controlled substance: No Vital Signs Vital Signs: 12/10/24 19:12 12/10/24 21:00 12/10/24 21:30 Pulse Rate 68 68 Pulse Rate [Left] 82 Respiratory Rate 22 16 17 Blood Pressure 160/68 H 155/69 H Blood Pressure [Right Arm] 225/96 H Blood Pressure Mean [Right Arm] 139 02 Sat by Pulse Oximetry 81 L 97 97 Oxygen Delivery Method Room Air 12/10/24 22:15 Pulse Rate 70 Pulse Rate [Left] Respiratory Rate 20 Blood Pressure 151/68 H Blood Pressure [Right Arm] Blood Pressure Mean [Right Arm] 02 Sat by Pulse Oximetry 96 Oxygen Delivery Method Lab Data Lab results reviewed: Yes I reviewed the patient's lab results. Labs: Lab Results 12/10/24 20:20: SARS-CoV-2 (PCR) Not detected, Influenza A Untype (PCR) Not detected, Influenza Type B (PCR) Not detected 12/10/24 20:32: VBG pH 7.32, VBG pCO2 65.2 H, VBG pO2 24.2 L, VBG HCO3 32.5 H, V BG Total CO2 34.5 H, VBG O2 Saturation 40.9 L, VBG Base Excess 6.4 H, VBG Lactic Acid 1.1 12/10/24 20:35: WBC 8.0, RBC 4.76, Hgb 13.6, Hct 42.6, MCV 89.5, MCH 28.6, MCHC 31.9, RDW 15.1, Plt Count 243, MPV 11.1 H, Neut % (Auto) 61.8, Lymph % (Auto) 18.5, [place] % (Auto) 10.9 H, Eos % (Auto) 6.9, Baso % (Auto) 1.4, Neut # (Auto) 4.9, Lymph # (Auto) 1.5, [place] # (Auto) 0.9, Eos # (Auto) 0.6 H, Baso # (Auto) 0.1, Sodium 141, Potassium 4.1, Chloride 99, Carbon Dioxide 37 H, Anion Gap 9.1, BUN 16, Creatinine 1.00, Estimated Creat Clear 56, Estimated GFR 54 L, Est GFR ( Amer) 65, Glucose 102 H, Calcium 9.9, Magnesium 1.9, Total Bilirubin 0.5, AST 35, ALT 26, Alkaline Phosphatase 81, Troponin I < 0.01, NT-Pro-B Natriuret Pep 297, Total Protein 8.3 H D, Albumin 5.0, Globulin 3.3 H, Albumin/Globulin Ratio 1.5 12/10/24 20:35 12/10/24 20:35 Response Orders (Tests/Meds): ED MEDICATIONS Discontinued Medications Generic Name Dose Route Start Last Admin Trade Name Venkateshq PRN Reason Stop Dose Admin Albuterol/Ipratropium 3 ml 12/10/24 20:30 12/10/24 20:44 Ipratropium/Albuterol 3 Ml Neb IH 12/10/24 20:31 3 ml ONCE ONE Administration Dexamethasone Sodium Phosphate 10 mg 12/10/24 20:30 12/10/24 20:41 Dexamethasone 4mg/Ml 5ml Mdv IV 12/10/24 20:31 10 mg ONCE ONE Administration Doxycycline Hyclate 100 mg 12/10/24 22:18 12/10/24 22:27 Doxycycline Hycl 100 Mg Tablet PO 12/10/24 22:19 100 mg ONCE ONE Administration Magnesium Sulfate 2 gm in 50 mls @ 50 mls/hr 12/10/24 21:03 12/10/24 21:09 Magnesium Sulfate 2gm/50ml Premix IV 12/10/24 22:02 50 mls/hr ONCE ONE Administration ORDERS Category Date Time Status Chest XR 2 view (NOT portable) [XR chest 2V] Stat Exams 12/10/24 21:42 Taken BNP [NT Pro Brain Natriuretic Pep.] Stat Lab 12/10/24 20:35 Completed CBC w/Auto Diff [Complete Blood Count Auto Diff] Stat Lab 12/10/24 20:35 Completed CMP [Comprehensive Metabolic Panel] Stat Lab 12/10/24 20:35 Completed Magnesium Stat Lab 12/10/24 20:35 Completed Rapid PCR Covid and Flu A/B Stat Lab 12/10/24 20:20 Completed Trop I [Troponin I] Stat Lab 12/10/24 20:35 Completed Troponin I Q3H Lab 12/10/24 23:45 Ordered Troponin I Q3H Lab 12/11/24 02:45 Ordered VBG [Venous Blood Gas] Stat RT 12/10/24 20:32 Completed MDM Narrative Medical Decision Narrative: In summary patient is a 74-year-old female who presents to the emergency department for evaluation of dyspnea. Patient is initially hypertensive at 225/96 but with a heart rate of 82 with what appears to be normal sinus rhythm on the bedside monitor breathing 22 satting at 94% on 3 L by nasal cannula upon arrival, afebrile. Physical exam is remarkable for tachypnea but no accessory muscle use, pursed lip expiratory phase, end expiratory wheezes in all 4 gaspar but breath sounds heard to bases. Differential diagnosis includes COPD exacerbation versus upper or lower respiratory tract infection versus ACS versus heart failure versus renal failure etc. Initial workup will be conducted with hematologic labs plain film chest x-ray twelve-lead EKG VBG. Initial interventions include DuoNeb Decadron magnesium supplemental O2 continuous pulse oximetry as well as continuous cardiac monitoring. Initial workup reviewed by me actually says that her hematologic labs are nonactionable and my informal interpretation of her plain film chest x-ray shows chronic disease but no obvious acute processes prior to radiology read. Interpretation of her VBG shows that she has compensated respiratory failure with a pH of 7.32 pCO2 of 65.2 and pO2 of 24.2 venous bicarb of 32.5 with a sat of 40.9 and a VBG lactic acid 1.1 VBG base excess 6.4. Upon repeat evaluation patient reported significant improvement in her subjective symptoms. Given this patient is appropriate for discharge with instructions to nebulize with her machine every 6 hours for the next 24 while awake, a prescription for prednisone and follow-up with her PCP within 48 hours for recheck or return to the ER for any worsening signs or symptoms as needed. <Jade Felix, DO - Last Filed: 12/10/24 21:02> Vital Signs Vital Signs: 12/10/24 19:12 12/10/24 21:00 12/10/24 21:30 Pulse Rate 68 68 Pulse Rate [Left] 82 Respiratory Rate 22 16 17 Blood Pressure 160/68 H 155/69 H Blood Pressure [Right Arm] 225/96 H Blood Pressure Mean [Right Arm] 139 02 Sat by Pulse Oximetry 81 L 97 97 Oxygen Delivery Method Room Air 12/10/24 22:15 Pulse Rate 70 Pulse Rate [Left] Respiratory Rate 20 Blood Pressure 151/68 H Blood Pressure [Right Arm] Blood Pressure Mean [Right Arm] 02 Sat by Pulse Oximetry 96 Oxygen Delivery Method Lab Data Labs: Lab Results 12/10/24 20:20: SARS-CoV-2 (PCR) Not detected, Influenza A Untype (PCR) Not detected, Influenza Type B (PCR) Not detected 12/10/24 20:32: VBG pH 7.32, VBG pCO2 65.2 H, VBG pO2 24.2 L, VBG HCO3 32.5 H, V BG Total CO2 34.5 H, VBG O2 Saturation 40.9 L, VBG Base Excess 6.4 H, VBG Lactic Acid 1.1 12/10/24 20:35: WBC 8.0, RBC 4.76, Hgb 13.6, Hct 42.6, MCV 89.5, MCH 28.6, MCHC 31.9, RDW 15.1, Plt Count 243, MPV 11.1 H, Neut % (Auto) 61.8, Lymph % (Auto) 18.5, [place] % (Auto) 10.9 H, Eos % (Auto) 6.9, Baso % (Auto) 1.4, Neut # (Auto) 4.9, Lymph # (Auto) 1.5, [place] # (Auto) 0.9, Eos # (Auto) 0.6 H, Baso # (Auto) 0.1, Sodium 141, Potassium 4.1, Chloride 99, Carbon Dioxide 37 H, Anion Gap 9.1, BUN 16, Creatinine 1.00, Estimated Creat Clear 56, Estimated GFR 54 L, Est GFR ( Amer) 65, Glucose 102 H, Calcium 9.9, Magnesium 1.9, Total Bilirubin 0.5, AST 35, ALT 26, Alkaline Phosphatase 81, Troponin I < 0.01, NT-Pro-B Natriuret Pep 297, Total Protein 8.3 H D, Albumin 5.0, Globulin 3.3 H, Albumin/Globulin Ratio 1.5 Response Orders (Tests/Meds): ED MEDICATIONS Discontinued Medications Generic Name Dose Route Start Last Admin Trade Name Freq PRN Reason Stop Dose Admin Albuterol/Ipratropium 3 ml 12/10/24 20:30 12/10/24 20:44 Ipratropium/Albuterol 3 Ml Neb IH 12/10/24 20:31 3 ml ONCE ONE Administration Dexamethasone Sodium Phosphate 10 mg 12/10/24 20:30 12/10/24 20:41 Dexamethasone 4mg/Ml 5ml Mdv IV 12/10/24 20:31 10 mg ONCE ONE Administration Doxycycline Hyclate 100 mg 12/10/24 22:18 12/10/24 22:27 Doxycycline Hycl 100 Mg Tablet PO 12/10/24 22:19 100 mg ONCE ONE Administration Magnesium Sulfate 2 gm in 50 mls @ 50 mls/hr 12/10/24 21:03 12/10/24 21:09 Magnesium Sulfate 2gm/50ml Premix IV 12/10/24 22:02 50 mls/hr ONCE ONE Administration ORDERS Category Date Time Status Chest XR 2 view (NOT portable) [XR chest 2V] Stat Exams 12/10/24 21:42 Taken BNP [NT Pro Brain Natriuretic Pep.] Stat Lab 12/10/24 20:35 Completed CBC w/Auto Diff [Complete Blood Count Auto Diff] Stat Lab 12/10/24 20:35 Completed CMP [Comprehensive Metabolic Panel] Stat Lab 12/10/24 20:35 Completed Magnesium Stat Lab 12/10/24 20:35 Completed Rapid PCR Covid and Flu A/B Stat Lab 12/10/24 20:20 Completed Trop I [Troponin I] Stat Lab 12/10/24 20:35 Completed Troponin I Q3H Lab 12/10/24 23:45 Ordered Troponin I Q3H Lab 12/11/24 02:45 Ordered VBG [Venous Blood Gas] Stat RT 12/10/24 20:32 Completed ECG Data Tracing #1: Attestation: I reviewed this ECG and interpreted as documented below: ECG Narrative: Sinus rhythm with a first-degree AV block with a ventricular rate of 67 bpm. AR interval [address] changes concerning for ischemia. Normal axis ECG initial impression date: 12/10/24 ECG initial impression time: 20:54
[2024-12-10 20:29] LABS: Coronavirus 19, PCR Not Detected (NotDetected); Influenza A, PCR Not Detected (NotDetected); Influenza B, PCR Not Detected (NotDetected)
[2024-12-10] MEDS: DEXAMETHASONE 4MG/ML 5ML MDV 10 MG IV (20:41)
[2024-12-10 20:44] LABS: Basophils # 0.1 K/mm3 (0-0.2); Basophils % 1.4 % (0.1-2.0); Eosinophils # 0.6 K/mm3 (0.0-0.4); Eosinophils % 6.9 % (0.1-12.0); Hematocrit 42.6 % (37.0-47.0); Hemoglobin 13.6 g/dL (12.2-16.2); Lymphocytes # 1.5 K/mm3 (0.7-4.5); Lymphocytes % 18.5 % (10-50); Mean Corpuscular HGB Conc 31.9 g/dL (31.8-35.4); Mean Corpuscular Hemoglobin 28.6 pg (27.0-31.2); Mean Corpuscular Volume 89.5 fl (81-99); Mean Platelet Volume 11.1 fl (7.4-10.4); Monocytes # 0.9 K/mm3 (0.1-1.0); Monocytes % 10.9 % (1.7-9.3); Neutrophils # 4.9 K/mm3 (1.8-7.8); Neutrophils % 61.8 % (37.0-80.0); Platelet Count 243 K/mm3 (142-424); Red Blood Count 4.76 M/mm3 (4.20-5.40); Red Cell Distribution Width 15.1 % (11.5-17.5)
[2024-12-10] MEDS: IPRATROPIUM/ALBUTEROL 3 ML NEB IH (20:44)
[2024-12-10 20:45] LABS: Lactate Venous 1.1 mmol/L (0.4-2.0); VBG Base Excess 6.4 mmol/L (-2.4-2.3); VBG HCO3 32.5 mmol/L (23-30); VBG Oxygen Saturation 40.9 % (50-70); VBG PH 7.32 mmol/L (7.31-7.41); VBG PO2 24.2 mmol/L (28-40); VBG Total CO2 34.5 mmol/L (23-27)
--- NOTE | 2024-12-10 20:46 | ECG_ITS ---
APPROVED REPORT Exam: Resting ECG HR:67 bpm ECG Measurements Heart Rate 67 AXES CO 222 P 92 QRSd 77 QRS 36 QT 375 T 66 QTc 391 Conclusion SINUS RHYTHM WITH FIRST DEGREE AV BLOCK Electronically signed by : GIRMA DAVIS, 12/11/2024 23:41:46
--- NOTE | 2024-12-10 20:48 | PC.NURSE ---
Critical VBG PH 7.32 C02 65.2 02 24.2 Bicarb 32.5 lactic 1.1
[2024-12-10 20:52] LABS: VBG PCO2 65.2 mmol/L (35-51)
--- NOTE | 2024-12-10 20:52 | PC.NURSE ---
pt medicated per MAR and EKG completed. Pt voices no needs at this time. call light in reach
[2024-12-10 21:00] VITALS: BP 160/68; PULSE 68; RESP 16; O2SAT 97
[2024-12-10 21:05] LABS: Chloride 99 mmol/L (98-107); Sodium 141 mmol/L (136-145)
[2024-12-10 21:06] LABS: Potassium 4.1 mmoL/L (3.5-5.1)
[2024-12-10 21:08] LABS: Alanine Aminotransferase 26 U/L (12-78); Albumin/Globulin Ratio 1.5 (1.1-1.8); Alkaline Phosphatase 81 U/L (38-126); Anion Gap 9.1 mEq/L (5-15); Aspartate Amino Transferase 35 U/L (14-36); Bilirubin,Total 0.5 mg/dl (0.2-1.3); Blood Urea Nitrogen 16 mg/dl (7-17); Carbon Dioxide 37 mmol/L (22.0-30.0); Creatinine Clearance Estimated 56 mL/min (50-200); Estimated Glomerular Filt Rate 54 ml/min (>60); GFR (African American) 65 ML/MIN (>60); Globulin 3.3 g/dL (1.3-3.2); Total Protein,Serum 8.3 g/dl (6.3-8.2)
[2024-12-10 21:09] LABS: Calcium 9.9 mg/dl (8.4-10.2); Glucose 102 mg/dl (74-100)
[2024-12-10] MEDS: MAGNESIUM SULFATE IN WATER 2 GM/50 ML PIGGYBACK IV (21:09)
--- NOTE | 2024-12-10 21:11 | PC.NURSE ---
Yunior JEAN-BAPTISTE notified of critical VBG result
[2024-12-10 21:30] VITALS: BP 155/69; PULSE 68; RESP 17; O2SAT 97
[2024-12-10 21:32] LABS: Magnesium 1.9 mg/dl (1.6-2.3)
[2024-12-10 21:42] LABS: NT Pro Brain Natriuretic Pep. 297 pg/mL (0-450)
--- NOTE | 2024-12-10 21:42 | XR_ITS ---
PROCEDURE INFORMATION: Exam: XR Chest Exam date and time: 12/10/2024 9:45 PM Age: 74 years old Clinical indication: Dyspnea TECHNIQUE: Imaging protocol: Radiologic exam of the chest. Views: 2 views. COMPARISON: CT CHEST WO CON 04/23/2024 1:04 PM FINDINGS: Lungs: The lungs are hyperexpanded. There are linear densities at the bases consistent with atelectasis and or scarring. No focal consolidation or overt failure. Pleural spaces: Unremarkable. No pleural effusion. No pneumothorax. Heart/Mediastinum: The heart is top-normal. Vasculature: Unremarkable. Bones/joints: Moderate degenerative changes of the spine. Mild kyphosis. IMPRESSION: 1. Subsegmental atelectasis and/or scarring at the lung bases. 2. Findings consistent with a degree of COPD.
[2024-12-10 22:01] LABS: Troponin I < 0.01 ng/ml (0.00-0.034)
[2024-12-10 22:15] VITALS: BP 151/68; PULSE 70; RESP 20; O2SAT 96
[2024-12-10] MEDS: DOXYCYCLINE HYCL 100 MG TABLET PO (22:27)
[2024-12-10 22:48] VITALS: BP 148/98; PULSE 72; RESP 20; TEMP 36.8; O2SAT 95
== END 2024-12-10 22:49 | disposition home or self-care (01) ==
PROVIDERS: Physician Assistant; Emergency Provider Emergency Medicine; PCP Internal Medicine
DX: J44.1 Chronic obstructive pulmonary disease with (acute) exacerbation (principal); R06.02 Shortness of breath; R23.2 Flushing
CPT/HCPCS: 71046; 80053; 82803; 83735; 83880; 84484; 85025; 87636; 93005; 96365; 96374; 99284; J1100; J3475; J7620

== ENCOUNTER 2024-12-19 11:28 | Outpatient (CLI) | payer MEDICARE, MEDICAID, SELFPAY ==
[2024-12-19 19:30] LABS: Hemoglobin A1C 6.6 % (4.0-6.0)
[2024-12-19 19:35] LABS: Microalbumin/Creatinine Ratio 10.4
[2024-12-19 19:36] LABS: Creatinine,Urine Random 171 mg/dL (Not Estab.)
[2024-12-19 20:35] LABS: 25-OH Vitamin D, Total 28.1 ng/mL (30-100)
[2024-12-19 20:54] LABS: Thyroid Stimulating Hormone 3.54 uIU/mL (0.465-4.68)
== END 2024-12-19 23:59 | disposition home or self-care (01) ==
LOC: LAB.DROPOF 12-20 11:29
PROVIDERS: PCP Internal Medicine; Visit Provider Internal Medicine
DX: E55.9 Vitamin D deficiency, unspecified (principal); E11.69 Type 2 diabetes mellitus with other specified complication; E66.9 Obesity, unspecified
CPT/HCPCS: 82043; 82306; 82570; 83036; 84443

== ENCOUNTER 2025-06-23 14:06 | Observation (INO) | payer MEDICARE, MEDICAID, SELFPAY ==
[2025-06-23] VITALS (17 sets, daily range): BP systolic 131–231; BP diastolic 59–117; PULSE 80–131; RESP 15–26; TEMP 36.5–36.7; O2SAT 74–99; BMI 27.3; BMI 29.2
--- NOTE | 2025-06-23 14:12 | ECG_ITS ---
APPROVED REPORT Exam: Resting ECG HR:103 bpm ECG Measurements Heart Rate 103 AXES [place] 190 P 70 QRSd 77 QRS 65 QT 317 T 73 QTc 377 Conclusion SINUS TACHYCARDIA ABNORMAL RHYTHM ECG UNCONFIRMED REPORT Electronically signed by : Phillip Menezes, 06/23/2025 14:51:13
--- OUTSIDE RECORDS SUMMARY | 2025-06-23 14:14 | XMS_ITS | Clinical Summary ---
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 [employer] Name Role Phone Isaac Chavez MD Primary Care Provider [phone] Family History Medical History Relation Name Comments Heart disease Father Heart disease Mother Hypertension Mother Hypertension Sister 1 Thyroid disease Sister 2 Relation Name Status Comments Father Mother Sister 1 Sister 2 Social History Tobacco Use Types Packs/Day Years Used Date Smoking Tobacco: Never Assessed Comments Unknown Sex and Gender Information Value Date Recorded Sex Assigned at Not on file Legal Sex Female 8:26 PM EDT Gender Identity Not on file Sexual Orientation Not on file Last Filed Vital Signs Vital Sign Reading Time Taken Comments Blood Pressure 128/66 07/10/2019 9:48 AM EDT Pulse 71 07/10/2019 9:48 AM EDT Temperature 36.5 C (97.7 F) 05/01/2019 11:13 AM EDT Respiratory Rate 20 07/10/2019 9:48 AM EDT Oxygen Saturation - - Inhaled Oxygen Concentration - - Weight 61.7 kg (136 lb) 07/10/2019 9:48 AM EDT Height 152.4 cm (5') 07/10/2019 9:48 AM EDT Body Mass Index 26.56 07/10/2019 9:48 AM EDT Plan of Treatment Health Maintenance Due Date Last Done Comments [facility]-Bone Density Scan 1948 [facility]-Depression Screening 1948 [facility]-Infant/Child/Adol SDOH Screenings 1950 [facility]- SDOH Screenings 01/18/1966 [facility]-Adult SDOH Screenings 01/18/1966 [facility]-DTaP,Tdap,and Td Vaccines (1 - Tdap) 12/12/1996 12/11/1996 [facility]-Zoster Vaccines (1 of 2) 01/18/1998 [facility]-Pneumococcal Vaccine: 50+ Years (2 of 2 - PCV20 or PCV21) 01/18/2018 01/18/2017 [facility]-RSV Vaccine: 60+ Years or (1 - 1-dose 75+ series) 01/18/2023 [id number] Vaccine (3 - season) 2025 08/12/2021, 01/14/2021 [facility]-Influenza Vaccine (#1) 06/10/202509/23, 07/08/2020, 08/09/2018 HPV Vaccines Aged Out No longer eligi ble based on patient's age to complete this topic [facility]-HIB Vaccines Aged Out No longer e ligible based on patient's age to complete this topic [facility]-Hepatitis A Vaccines Aged Out No longer eligible based on patient's age to complete this topic [facility]-IPV Vaccines Aged Out No longer e ligible based on patient's age to complete this topic [facility]-Rotavirus Vaccines Aged Out No lo nger eligible based on patient's age to [place] [address] [employer] Care Teams 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
--- NOTE | 2025-06-23 14:18 | XR_ITS ---
PROCEDURE INFORMATION: Exam: XR Chest Exam date and time: 06/23/2025 2:30 PM Age: 75 years old Clinical indication: Shortness of breath; Additional info: CARMEN gilman TECHNIQUE: Imaging protocol: Radiologic exam of the chest. Views: 1 view. Total images: 1 COMPARISON: CR XR CHEST 2V 12/10/2024 9:45 PM FINDINGS: Lungs: Bilateral hyperinflation is present. Atelectatic and/or early infiltrative changes noted within the right lower lobe. Pleural spaces: No pleural effusion. No pneumothorax. Heart/Mediastinum: Heart demonstrates mild diffuse enlargement. Vasculature: Moderate atherosclerotic disease. Bones/joints: Unremarkable. Soft tissues: The patient's chin overlies the lung apices. IMPRESSION: 1. Bilateral hyperinflation is present. 2. Mild cardiomegaly. 3. Atelectatic and/or early infiltrative changes noted within the right lower lobe.
--- NOTE | 2025-06-23 14:21 | ED_ITS ---
<Statement entered by Jose Menezes MD - 06/24/25 14:43> I was consulted by the OMKAR, and we discussed the complexity of the problems being addressed. I approved the treatment and management plan for this patient's care in the emergency department, thus performing a substantive portion of the medical decision making. Jose Menezes MD, ADELA, FACEP Discharge Plan Disposition Patient Disposition: Admitted Condition: Fair Clinical Impressions Clinical Impression: COPD exacerbation Discharge ED Provider: Jose Menezes HPI <Eloina Botello, NEUROSURGICAL NURSE PRACTITIONER - Last Filed: 06/23/25 20:37> General Chief Complaint: Shortness of Breath/Dyspnea Stated Complaint: SOA Time Seen by Provider: 06/23/25 14:09 History of Present Illness HPI narrative: patient is a 75-year-old female PMHx COPD (2L NC), CKD, diabetes, hyperlipidemia history of tobacco use, history of hyperkalemia, hypertension who presents to the ED with complaints of shortness of breath. Patient states she has been short of breath since yesterday however progressive and constant. States she has been using her albuterol inhaler at home without relief. She has not had any of her daily medications this morning. Patient states although she has had COPD exacerbations in the past, this feels worse than normal. Related Data Home Medications ?Medication ?Instructions ?Recorded ?Confirmed hydrochlorothiazide 12.5 mg tablet 12.5 mg PO DAILY 04/10/25 ibuprofen 600 mg tablet 600 mg PO 09/26/23 04/10/25 albuterol sulfate 90 mcg/actuation 2 inh inhalation Q6 PRN shortness 06/23/25 06/23/25 aerosol inhaler of breath or wheezing amlodipine 5 mg tablet 5 mg PO DAILY 06/23/2506/23 bisoprolol fumarate 5 mg tablet 5 mg PO DAILY 06/23/25 06/23/25 ipratropium 0.5 mg-albuterol 3 mg 3 ml inhalation Q8 P RN SOA 06/23/25 06/23/25 (2.5 mg base)/3 mL nebulization soln losartan 100 mg tablet 100 mg PO DAILY 06/23/25 Previous Rx's ?Medication ?Instructions ?Recorded blood sugar diagnostic (Blood #25 ea 09/15/23 Glucose Test strips) blood-glucose meter (Blood Glucose #1 ea 09/15/23 Monitoring kit) lancets (Accu-Chek Softclix #100 ea 09/15/23 Lancets) azelastine 205.5 mcg (0.15 %) 2 spray intranasal BID 9 0 days #30 05/24/24 nasal spray mL budesonide 160 mcg-glycopyr 9 See Rx Instructions .Rou te 06/13/24 mcg-formot 4.8 mcg/actuation HFA .COMPLEX #33 grams inhaler (Breztri Aerosphere) cholecalciferol (vitamin D3) 250 250 mcg PO DAILY #90 caps 11/07/24 mcg (10,000 unit) capsule ezetimibe 10 mg tablet (Zetia) 10 mg PO DAILY #30 tabs 11/12/24 glipizide 2.5 mg tablet 2.5 mg PO DAILY #30 tabs montelukast 10 mg tablet 10 mg PO DAILY 90 days #90 t abs 01/08/25 pravastatin 40 mg tablet 80 mg (2 x 40 mg) PO DAILY 9 0 days 02/14/25 #180 tabs omeprazole 40 mg capsule,delayed See Rx Instructions . Route 04/19/25 release .COMPLEX Reflux/Acid reflux #90 caps levothyroxine 100 mcg tablet 100 mcg PO DAILY thyroid #90 tabs 05/06/25 Allergies Allergy/AdvReac Type Severity Reaction Status Date / Time lisinopril (LISINOPRIL) Allergy ITCH Verified 04/10/25 16:19 [facility] <Eloina Botello APRN - Last Filed: 06/23/25 20:37> [facility] Disclaimer: The information contained in this section may have been updated after the patient was seen, as this information can be updated by other users. Medical History COPD with exacerbation Rib injury URI (upper respiratory infection) Solid nodule of lung greater than 8 mm in diameter Nodule of right lung Right atrial enlargement COPD (chronic obstructive pulmonary disease) Hemorrhoid Sleep apnea Chronic cough Bronchitis History of gastroesophageal reflux (GERD) History of cataract Allergies Hyperlipidemia Cataract Dyspnea Chest pain Screening for lung cancer Pulmonary emphysema Stopped smoking with greater than 30 pack year history Peripheral eosinophilia Allergic rhinitis, unspecified Nocturnal hypoxemia Dyspnea on exertion Mild aortic stenosis Dyspnea Hypothyroidism Hx of pulmonary embolus Chronic obstructive lung disease HTN (hypertension) Surgical History History of partial hysterectomy History of colonoscopy History of carpal tunnel release H/O ventral hernia repair Family History Father Heart attack Mother Heart attack Sister Heart attack Social History (Updated 06/23/25 @ 22:20 by Janae Freeman RN) Smoking Status: Former smoker tobacco type: cigarettes years smoked: 40 alcohol intake: former counseling provided: none substance use type: denies use current occupational status: retired Travel in the last 8 weeks?: None household members: none housing: apartment current occupational exposures/hazards: No caffeine: Yes Have you lived/traveled outside [place] in past 30 days?: No Contact w/someone who lives/traveled outside US past 30 days?: No Exposure to someone with infectious disease in past 14 days?: No Do you have a fever (greater than 100.4 F or 38 C)?: No Have you tested positive for COVID-19?: No Exposed to someone with COVID-19 in past 14 days?: No Do you have a sore throat?: No Do you have a cough?: No Do you have any weakness?: No Are you experiencing any nausea/vomitting?: No Do you have any diarrhea?: No Are you experiencing any unusual bleeding?: No Do you have any muscle aches/pain?: No Do you have any abdominal pain?: No Are you experiencing loss of taste or smell?: No Other Medical History Have you received the Flu Vaccine for this season: Yes Have you received the Pneumonia Vaccine: Yes <Eloina Botello APRN - Last Filed: 06/23/25 20:37> ROS Obtained: Yes Systems reviewed as appropriate & no additional complaints except as documented Physical Exam <Eloina Botello APRN - Last Filed: 06/23/25 20:37> General General appearance: alert Eye Eye exam: Present PERRL Neck Neck exam: Present full ROM Respiratory Respiratory exam: Present respiratory distress, wheezes and accessory muscle use Cardiovascular Cardiovascular exam: Present tachycardia Abdominal Exam Abdominal exam: Present soft Neurological Exam Neurological exam: Present alert and oriented X3 Skin Skin exam: Present warm and dry HEART Score <Eloina Botello APRN - Last Filed: 06/23/25 20:37> HEART Score HEART Score assessment performed?: No Critical Care <Eloina Botello APRN - Last Filed: 06/23/25 20:37> Critical Care Time Critical Care Time: No Medical Decision Making <Eloina Botello APRN - Last Filed: 06/23/25 20:37> Lyle Inquiry Pt receiving controlled substance: No Vital Signs Vital Signs: 06/23/25 14:13 06/23/25 14:23 06/23/25 14:27 Temperature 98.1 F Temperature Source Oral Pulse Rate 90 Pulse Rate [Right Radial] 109 H Respiratory Rate 24 Blood Pressure 231/117 H Blood Pressure [Left Arm] 190/98 H Blood Pressure [Right Arm] 231/117 H Blood Pressure Mean [Left Arm] 128 Blood Pressure Mean [Right Arm] 155 Blood Pressure Source [Left Arm] Manual Cuff/ Auscultation Blood Pressure Source [Right Arm] Automatic Cuff Blood Pressure Position Blood Pressure Position [Left Arm] Sitting Blood Pressure Position [Right Arm] Sitting 02 Sat by Pulse Oximetry 95 74 L 98 Oxygen Delivery Method Nasal Cannula Room Air Nasal Cannula Oxygen Flow Rate (LPM) 2 4 2 06/23/25 14:31 06/23/25 14:40 06/23/25 14:40 Temperature Temperature Source Pulse Rate 95 H 80 88 Pulse Rate [Right Radial] Respiratory Rate Blood Pressure 192/96 H Blood Pressure [Left Arm] Blood Pressure [Right Arm] Blood Pressure Mean [Left Arm] Blood Pressure Mean [Right Arm] Blood Pressure Source [Left Arm] Blood Pressure Source [Right Arm] Blood Pressure Position Blood Pressure Position [Left Arm] Blood Pressure Position [Right Arm] 02 Sat by Pulse Oximetry 97 Oxygen Delivery Method T-Piece Oxygen Flow Rate (LPM) 06/23/25 15:14 06/23/25 15:30 06/23/25 16:00 Temperature Temperature Source Pulse Rate 117 H 102 H 124 H Pulse Rate [Right Radial] Respiratory Rate 17 19 21 Blood Pressure 212/110 H 176/74 H 189/86 H Blood Pressure [Left Arm] Blood Pressure [Right Arm] Blood Pressure Mean [Left Arm] Blood Pressure Mean [Right Arm] Blood Pressure Source [Left Arm] Blood Pressure Source [Right Arm] Blood Pressure Position Blood Pressure Position [Left Arm] Blood Pressure Position [Right Arm] 02 Sat by Pulse Oximetry 96 99 99 Oxygen Delivery Method T-Piece T-Piece T-Piece Oxygen Flow Rate (LPM) 4 06/23/25 16:15 06/23/25 17:00 06/23/25 17:34 Temperature Temperature Source Pulse Rate 114 H 129 H 109 H Pulse Rate [Right Radial] Respiratory Rate 26 H 15 25 H Blood Pressure 185/84 H 131/59 L Blood Pressure [Left Arm] Blood Pressure [Right Arm] Blood Pressure Mean [Left Arm] Blood Pressure Mean [Right Arm] Blood Pressure Source [Left Arm] Blood Pressure Source [Right Arm] Blood Pressure Position Blood Pressure Position [Left Arm] Blood Pressure Position [Right Arm] 02 Sat by Pulse Oximetry 99 95 95 Oxygen Delivery Method T-Piece T-Piece Nasal Cannula Oxygen Flow Rate (LPM) 3 3 06/23/25 18:00 06/23/25 18:30 06/23/25 20:05 Temperature Temperature Source Pulse Rate 131 H 125 H Pulse Rate [Right Radial] Respiratory Rate 22 22 Blood Pressure 139/70 157/68 H Blood Pressure [Left Arm] Blood Pressure [Right Arm] Blood Pressure Mean [Left Arm] Blood Pressure Mean [Right Arm] Blood Pressure Source [Left Arm] Blood Pressure Source [Right Arm] Blood Pressure Position Blood Pressure Position [Left Arm] Blood Pressure Position [Right Arm] 02 Sat by Pulse Oximetry 97 97 Oxygen Delivery Method Nasal Cannula Nasal Cannula Nasal Cannula Oxygen Flow Rate (LPM) 3 3 2 06/23/25 20:45 Temperature 98.1 F Temperature Source Oral Pulse Rate 121 H Pulse Rate [Right Radial] Respiratory Rate 26 H Blood Pressure 146/80 H Blood Pressure [Left Arm] Blood Pressure [Right Arm] Blood Pressure Mean [Left Arm] Blood Pressure Mean [Right Arm] Blood Pressure Source [Left Arm] Blood Pressure Source [Right Arm] Blood Pressure Position Sitting Blood Pressure Position [Left Arm] Blood Pressure Position [Right Arm] 02 Sat by Pulse Oximetry Oxygen Delivery Method Nasal Cannula Oxygen Flow Rate (LPM) 3 Lab Data Labs: Lab Results 06/23/25 14:15: WBC 7.4, RBC 4.62, Hgb 13.0, Hct 42.8, MCV 92.6, MCH 28.1, MCHC 30.4 L, RDW 14.2, Plt Count 169, MPV 12.1 H, Neut % (Auto) 56.1, Lymph % (Auto) 19.3, [place] % (Auto) 8.2, Eos % (Auto) 14.7 H, Baso % (Auto) 1.4, Neut # (Auto) 4.1, Lymph # (Auto) 1.4, [place] # (Auto) 0.6, Eos # (Auto) 1.1 H, Baso # (Auto) 0.1, Sodium 142, Potassium 4.2, Chloride 99, Carbon Dioxide 32 H, Anion Gap 15.2 H, BUN 16, Creatinine 0.70, Estimated Creat Clear 47, Estimated GFR 81, Est GFR ( Amer) 98, Glucose 110 H, Calcium 9.7, Total Bilirubin 0.7, AST 33, ALT 18, Alkaline Phosphatase 69, Troponin I < 0.01, NT-Pro-B Natriuret Pep 264, Total Protein 8.0, Albumin 4.7, Globulin 3.3 H, Albumin/Globulin Ratio 1.4, SARS-CoV-2 (PCR) Not detected, Influenza A Untype (PCR) Not detected, Influenza Type B (PCR) Not detected 06/23/25 14:19: VBG pH 7.36, VBG pCO2 48.3, VBG pO2 83.0 H, VBG HCO3 26.7, VBG Total CO2 28.2 H, VBG O2 Saturation 96.5 H, VBG Base Excess 1.3, VBG Lactic Acid 1.8 06/23/25 17:30: Troponin I 0.03 06/23/25 14:15 06/23/25 14:15 Response Orders (Tests/Meds): ED MEDICATIONS Generic Name Dose Route Start Last Admin Trade Name Freq PRN Reason Stop Dose Admin Acetaminophen 650 mg 06/23/25 20:30 Acetaminophen 325mg Tab PO 07/23/25 20:29 Q4HP PRN Fever or Mild Pain (1-3) Albuterol/Ipratropium 3 ml 06/24/25 00:00 06/23/25 23:17 Ipratropium/Albuterol 3 Ml Neb IH 07/24/25 00:00 3 ml Q6RT [place] Administration Doxycycline Hyclate 100 mg 06/23/25 21:00 06/23/25 21:02 Doxycycline Hycl 100 Mg Tablet PO 07/03/25 20:59 Not Given BID W[place] Ceftriaxone Sodium 1 gm/ 50 mls @ 100 mls/hr 06/23/25 16:45 06/23/25 18:04 Sodium Chloride IV 07/03/25 16:44 Infused Q24H [place] Infusion Insulin Human Lispro 0 unit 06/23/25 21:00 06/23/25 22:05 Humalog 100 Units/Ml 10ml Vial (Ssi) SUBCUT 07/23/25 20:59 4 unit ACHS [place] Administration Protocol Levothyroxine Sodium 100 mcg 06/24/25 07:00 Levothyroxine 100mcg (0.1mg) Tab PO 07/24/25 06:59 DAILYDM [place] Methylprednisolone Sodium Succinate 40 mg 06/23/25 20:30 06/23/25 22:05 Methylprednisolone Sod Succ 40mg Vial IV 07/23/25 20:29 40 mg Q12H [place] Administration Ondansetron HCl 4 mg 06/23/25 20:30 Ondansetron 4mg/2ml Vial IV 07/23/25 20:29 Q8HP PRN Nausea Pravastatin Sodium 80 mg 06/23/25 21:00 06/23/25 22:05 Pravastatin 40mg Tab PO 07/23/25 20:59 80 mg HS [place] Administration Sodium Chloride 10 ml 06/23/25 16:27 06/23/25 16:28 Sodium Chloride 0.9% 10ml Syr (Rad Only) IV 07/23/25 16:26 10 ml NEEDED PRN Administration Maintain IV Site Discontinued Medications Generic Name Dose Route Start Last Admin Trade Name Freq PRN Reason Stop Dose Admin Albuterol Sulfate 20 mg 06/23/25 15:25 06/23/25 15:25 Albuterol 0.083% 2.5 Mg/3 Ml [facility] 06/23/25 15:26 20 mg ONCE ONE Administration Albuterol/Ipratropium 9 ml 06/23/25 14:18 06/23/25 14:40 Ipratropium/Albuterol 3 Ml [facility] 06/23/25 14:19 9 ml ONCE ONE Administration Amlodipine Besylate 10 mg 06/23/25 14:20 06/23/25 14:42 Amlodipine 10mg Tablet PO 06/23/25 14:21 10 mg DAILY ONE Administration Diazepam 2 mg 06/23/25 16:38 06/23/25 17:04 Diazepam 10mg/2ml Syringe IV 06/23/25 16:39 Not Given ONCE ONE Diazepam 2.5 mg 06/23/25 16:39 06/23/25 16:42 Diazepam 10mg/2ml Syringe IV 06/23/25 16:40 2.5 mg ONCE ONE Administration Diazepam 2.5 mg 06/23/25 17:13 06/23/25 17:21 Diazepam 10mg/2ml Syringe IV 06/23/25 17:14 2.5 mg ONCE ONE Administration Magnesium Sulfate 2 gm in 50 mls @ 50 mls/hr 06/23/25 15:08 06/23/25 16:28 Magnesium Sulfate 2gm/50ml Premix IV 06/23/25 16:07 Infused ONCE ONE Infusion Doxycycline Hyclate 100 mg/ 250 mls @ 166.667 mls/hr 06/23/25 15:36 06/23/25 19:19 Sodium Chloride IV 06/23/25 15:37 Infused ONCE ONE Infusion Iopamidol 70 ml 06/23/25 16:27 06/23/25 16:28 Iopamidol-370 (76%);100ml Bottle IV 06/23/25 16:28 70 ml ONCE ONE Administration Methylprednisolone Sodium Succinate 125 mg 06/23/25 14:18 06/23/25 14:42 Methylprednisolone Sod Succ 125mg Vial IV 06/23/25 14:19 125 mg ONCE ONE Administration Sodium Chloride 50 ml 06/23/25 16:27 06/23/25 16:28 0.9 % Sodium Chloride 50 Ml Vial IV 06/23/25 16:28 50 ml ONCE ONE Administration ORDERS Category Date Time Status CT angio chest PE protocol Stat Cat Scan 06/23/25 16:08 Completed Consult to Pulmonology [CONS] Routine Cons 06/24/25 07:00 Active CXR --portable [XR chest portable] Stat Exams 06/23/25 14:18 Completed BNP [NT Pro Brain Natriuretic Pep.] Stat Lab 06/23/25 14:15 Completed Basic Metabolic Panel AMLAB Lab 06/24/25 06:00 Ordered CBC w/Auto Diff [Complete Blood Count Auto Diff] Stat Lab 06/23/25 14:15 Completed CMP [Comprehensive Metabolic Panel] Stat Lab 06/23/25 14:15 Completed Complete Blood Count Auto Diff AMLAB Lab 06/24/25 06:00 Ordered Lactate Venous Stat Lab 06/23/25 14:49 Ordered Rapid PCR Covid and Flu A/B Stat Lab 09/14/25 14:15 Completed Trop I [Troponin I] Stat Lab 06/23/25 14:15 Completed Troponin I Q3H Lab 06/23/25 17:30 Completed Troponin I Q3H Lab 06/23/25 22:38 Completed VBG [Venous Blood Gas] Stat RT 06/23/25 14:19 Completed MDM Narrative Medical Decision Narrative: In summary, patient is a 75-year-old female PMHx COPD (2L NC), CKD, diabetes, hyperlipidemia history of tobacco use, history of hyperkalemia, hypertension who presents to the ED with complaints of shortness of breath. Patient states she has been short of breath since yesterday however progressive and constant. States she has been using her albuterol inhaler at home without relief. She has not had any of her daily medications this morning. Patient states although she has had COPD exacerbations in the past, this feels worse than normal. Patient denies chest pain. Denies being around anyone sick. Denies fever, chills, body aches, headache, visual disturbances, back pain, abdominal pain, nausea, vomiting, dysuria. Upon initial evaluation, patient is alert and oriented. She is hypertensive, tachycardic heart rate 109, afebrile. Audible wheezing heard without stethoscope, patient has bilateral lung sounds, wheezing in all lobes. Speaks in few sentences. Differential diagnosis includes COPD exacerbation, pulmonary embolism, ACS, dissection, pneumonia, pneumothorax, among others. Discussed with patient and daughter we will proceed with continuous DuoNebs, Solu-Medrol IV, labs and chest x-ray. We will administer her amlodipine 10 mg for hypertension. Will also administer magnesium. CBC unremarkable for any leukocytosis, stable H&H. VBG normal pH. CMP remarkable for CO2 32, anion gap 15.2, glucose 110. First troponin < 0.01. Due to heart rate and respiratory rate, patient meets sepsis criteria. Her x- ray is remarkable for pneumonia, we will administer doxycycline and Rocephin. Will forego fluid bolus at this time due to patient is euvolemic. Will continue to monitor need for IV fluids. Attempting CT scan with PE protocol, however patient is very nervous about lying flat, administering Valium 2.5 mg. Repeat troponin 0.03, I feel this is most likely related to demand ischemia vs ACS. I spoke to the radiologist who read the CTA, he wanted to ensure that we are aware that there is a lung nodule that is persistently getting bigger each time the patient has been scanned. No PE noted. I had a discussion with patient about her lung nodule, she states she was unaware that she had 1. Discussed that she will need to follow-up with pencils washer, she states she has seen Dr. Rodney before and will call to make a follow up apt. we ambulated patient with her oxygen on, her O2 sat dropped to 82% relating. Discussed case with hospital medicine who accepts patient to their services, she is agreeable to stay at this time. <Zafar Marie MD - Last Filed: 06/23/25 23:37> Vital Signs Vital Signs: 06/23/25 14:13 06/23/25 14:23 06/23/25 14:27 Temperature 98.1 F Temperature Source Oral Pulse Rate 90 Pulse Rate [Right Radial] 109 H Respiratory Rate 24 Blood Pressure 231/117 H Blood Pressure [Left Arm] 190/98 H Blood Pressure [Right Arm] 231/117 H Blood Pressure Mean [Left Arm] 128 Blood Pressure Mean [Right Arm] 155 Blood Pressure Source [Left Arm] Manual Cuff/ Auscultation Blood Pressure Source [Right Arm] Automatic Cuff Blood Pressure Position Blood Pressure Position [Left Arm] Sitting Blood Pressure Position [Right Arm] Sitting 02 Sat by Pulse Oximetry 95 74 L 98 Oxygen Delivery Method Nasal Cannula Room Air Nasal Cannula Oxygen Flow Rate (LPM) 2 4 2 06/23/25 14:31 06/23/25 14:40 06/23/25 14:40 Temperature Temperature Source Pulse Rate 95 H 80 88 Pulse Rate [Right Radial] Respiratory Rate Blood Pressure 192/96 H Blood Pressure [Left Arm] Blood Pressure [Right Arm] Blood Pressure Mean [Left Arm] Blood Pressure Mean [Right Arm] Blood Pressure Source [Left Arm] Blood Pressure Source [Right Arm] Blood Pressure Position Blood Pressure Position [Left Arm] Blood Pressure Position [Right Arm] 02 Sat by Pulse Oximetry 97 Oxygen Delivery Method T-Piece Oxygen Flow Rate (LPM) 06/23/25 15:14 06/23/25 15:30 06/23/25 16:00 Temperature Temperature Source Pulse Rate 117 H 102 H 124 H Pulse Rate [Right Radial] Respiratory Rate 17 19 21 Blood Pressure 212/110 H 176/74 H 189/86 H Blood Pressure [Left Arm] Blood Pressure [Right Arm] Blood Pressure Mean [Left Arm] Blood Pressure Mean [Right Arm] Blood Pressure Source [Left Arm] Blood Pressure Source [Right Arm] Blood Pressure Position Blood Pressure Position [Left Arm] Blood Pressure Position [Right Arm] 02 Sat by Pulse Oximetry 96 99 99 Oxygen Delivery Method T-Piece T-Piece T-Piece Oxygen Flow Rate (LPM) 4 06/23/25 16:15 06/23/25 17:00 06/23/25 17:34 Temperature Temperature Source Pulse Rate 114 H 129 H 109 H Pulse Rate [Right Radial] Respiratory Rate 26 H 15 25 H Blood Pressure 185/84 H 131/59 L Blood Pressure [Left Arm] Blood Pressure [Right Arm] Blood Pressure Mean [Left Arm] Blood Pressure Mean [Right Arm] Blood Pressure Source [Left Arm] Blood Pressure Source [Right Arm] Blood Pressure Position Blood Pressure Position [Left Arm] Blood Pressure Position [Right Arm] 02 Sat by Pulse Oximetry 99 95 95 Oxygen Delivery Method T-Piece T-Piece Nasal Cannula Oxygen Flow Rate (LPM) 3 3 06/23/25 18:00 06/23/25 18:30 06/23/25 20:05 Temperature Temperature Source Pulse Rate 131 H 125 H Pulse Rate [Right Radial] Respiratory Rate 22 22 Blood Pressure 139/70 157/68 H Blood Pressure [Left Arm] Blood Pressure [Right Arm] Blood Pressure Mean [Left Arm] Blood Pressure Mean [Right Arm] Blood Pressure Source [Left Arm] Blood Pressure Source [Right Arm] Blood Pressure Position Blood Pressure Position [Left Arm] Blood Pressure Position [Right Arm] 02 Sat by Pulse Oximetry 97 97 Oxygen Delivery Method Nasal Cannula Nasal Cannula Nasal Cannula Oxygen Flow Rate (LPM) 3 3 2 06/23/25 20:45 Temperature 98.1 F Temperature Source Oral Pulse Rate 121 H Pulse Rate [Right Radial] Respiratory Rate 26 H Blood Pressure 146/80 H Blood Pressure [Left Arm] Blood Pressure [Right Arm] Blood Pressure Mean [Left Arm] Blood Pressure Mean [Right Arm] Blood Pressure Source [Left Arm] Blood Pressure Source [Right Arm] Blood Pressure Position Sitting Blood Pressure Position [Left Arm] Blood Pressure Position [Right Arm] 02 Sat by Pulse Oximetry Oxygen Delivery Method Nasal Cannula Oxygen Flow Rate (LPM) 3 Lab Data Labs: Lab Results 06/23/25 14:15: WBC 7.4, RBC 4.62, Hgb 13.0, Hct 42.8, MCV 92.6, MCH 28.1, MCHC 30.4 L, RDW 14.2, Plt Count 169, MPV 12.1 H, Neut % (Auto) 56.1, Lymph % (Auto) 19.3, [place] % (Auto) 8.2, Eos % (Auto) 14.7 H, Baso % (Auto) 1.4, Neut # (Auto) 4.1, Lymph # (Auto) 1.4, [place] # (Auto) 0.6, Eos # (Auto) 1.1 H, Baso # (Auto) 0.1, Sodium 142, Potassium 4.2, Chloride 99, Carbon Dioxide 32 H, Anion Gap 15.2 H, BUN 16, Creatinine 0.70, Estimated Creat Clear 47, Estimated GFR 81, Est GFR ( Amer) 98, Glucose 110 H, Calcium 9.7, Total Bilirubin 0.7, AST 33, ALT 18, Alkaline Phosphatase 69, Troponin I < 0.01, NT-Pro-B Natriuret Pep 264, Total Protein 8.0, Albumin 4.7, Globulin 3.3 H, Albumin/Globulin Ratio 1.4, SARS-CoV-2 (PCR) Not detected, Influenza A Untype (PCR) Not detected, Influenza Type B (PCR) Not detected 06/23/25 14:19: VBG pH 7.36, VBG pCO2 48.3, VBG pO2 83.0 H, VBG HCO3 26.7, VBG Total CO2 28.2 H, VBG O2 Saturation 96.5 H, VBG Base Excess 1.3, VBG Lactic Acid 1.8 06/23/25 17:30: Troponin I 0.03 Response Orders (Tests/Meds): ED MEDICATIONS Generic Name Dose Route Start Last Admin Trade Name Freq PRN Reason Stop Dose Admin Acetaminophen 650 mg 06/23/25 20:30 Acetaminophen 325mg Tab PO 07/23/25 20:29 Q4HP PRN Fever or Mild Pain (1-3) Albuterol/Ipratropium 3 ml 06/24/25 00:00 06/23/25 23:17 Ipratropium/Albuterol 3 Ml Neb IH 07/24/25 00:00 3 ml Q6RT [place] Administration Doxycycline Hyclate 100 mg 06/23/25 21:00 06/23/25 21:02 Doxycycline Hycl 100 Mg Tablet PO 07/03/25 20:59 Not Given BID [place] Ceftriaxone Sodium 1 gm/ 50 mls @ 100 mls/hr 06/23/25 16:45 06/23/25 18:04 Sodium Chloride IV 07/03/25 16:44 Infused Q24H [place] Infusion Insulin Human Lispro 0 unit 06/23/25 21:00 06/23/25 22:05 Humalog 100 Units/Ml 10ml Vial (Ssi) SUBCUT 07/23/25 20:59 4 unit ACHS [place] Administration Protocol Levothyroxine Sodium 100 mcg 06/24/25 07:00 Levothyroxine 100mcg (0.1mg) Tab PO 07/24/25 06:59 DAILYDM [place] Methylprednisolone Sodium Succinate 40 mg 06/23/25 20:30 06/23/25 22:05 Methylprednisolone Sod Succ 40mg Vial IV 07/23/25 20:29 40 mg Q12H [place] Administration Ondansetron HCl 4 mg 06/23/25 20:30 Ondansetron 4mg/2ml Vial IV 07/23/25 20:29 Q8HP PRN Nausea Pravastatin Sodium 80 mg 06/23/25 21:00 06/23/25 22:05 Pravastatin 40mg Tab PO 07/23/25 20:59 80 mg HS [place] Administration Sodium Chloride 10 ml 06/23/25 16:27 06/23/25 16:28 Sodium Chloride 0.9% 10ml Syr (Rad Only) IV 07/23/25 16:26 10 ml NEEDED PRN Administration Maintain IV Site Discontinued Medications Generic Name Dose Route Start Last Admin Trade Name Venkateshq PRN Reason Stop Dose Admin Albuterol Sulfate 20 mg 06/23/25 15:25 06/23/25 15:25 Albuterol 0.083% 2.5 Mg/3 Ml Neb 06/23/25 15:26 20 mg ONCE ONE Administration Albuterol/Ipratropium 9 ml 06/23/25 14:18 06/23/25 14:40 Ipratropium/Albuterol 3 Ml Neb 06/23/25 14:19 9 ml ONCE ONE Administration Amlodipine Besylate 10 mg 06/23/25 14:20 06/23/25 14:42 Amlodipine 10mg Tablet PO 06/23/25 14:21 10 mg DAILY ONE Administration Diazepam 2 mg 06/23/25 16:38 06/23/25 17:04 Diazepam 10mg/2ml Syringe IV 06/23/25 16:39 Not Given ONCE ONE Diazepam 2.5 mg 06/23/25 16:39 06/23/25 16:42 Diazepam 10mg/2ml Syringe IV 06/23/25 16:40 2.5 mg ONCE ONE Administration Diazepam 2.5 mg 06/23/25 17:13 06/23/25 17:21 Diazepam 10mg/2ml Syringe IV 06/23/25 17:14 2.5 mg ONCE ONE Administration Magnesium Sulfate 2 gm in 50 mls @ 50 mls/hr 06/23/25 15:08 06/23/25 16:28 Magnesium Sulfate 2gm/50ml Premix IV 06/23/25 16:07 Infused ONCE ONE Infusion Doxycycline Hyclate 100 mg/ 250 mls @ 166.667 mls/hr 06/23/25 15:36 06/23/25 19:19 Sodium Chloride IV 06/23/25 15:37 Infused ONCE ONE Infusion Iopamidol 70 ml 06/23/25 16:27 06/23/25 16:28 Iopamidol-370 (76%);100ml Bottle IV 06/23/25 16:28 70 ml ONCE ONE Administration Methylprednisolone Sodium Succinate 125 mg 06/23/25 14:18 06/23/25 14:42 Methylprednisolone Sod Succ 125mg Vial IV 06/23/25 14:19 125 mg ONCE ONE Administration Sodium Chloride 50 ml 06/23/25 16:27 06/23/25 16:28 0.9 % Sodium Chloride 50 Ml Vial IV 06/23/25 16:28 50 ml ONCE ONE Administration ORDERS Category Date Time Status CT angio chest PE protocol Stat Cat Scan 06/23/25 16:08 Completed Consult to Pulmonology [CONS] Routine Cons 06/24/25 07:00 Active CXR --portable [XR chest portable] Stat Exams 06/23/25 14:18 Completed BNP [NT Pro Brain Natriuretic Pep.] Stat Lab 06/23/25 14:15 Completed Basic Metabolic Panel AMLAB Lab 06/24/25 06:00 Ordered CBC w/Auto Diff [Complete Blood Count Auto Diff] Stat Lab 06/23/25 14:15 Completed CMP [Comprehensive Metabolic Panel] Stat Lab 06/23/25 14:15 Completed Complete Blood Count Auto Diff AMLAB Lab 06/24/25 06:00 Ordered Lactate Venous Stat Lab 06/23/25 14:49 Ordered Rapid PCR Covid and Flu A/B Stat Lab 06/23/25 14:15 Completed Trop I [Troponin I] Stat Lab 06/23/25 14:15 Completed Troponin I Q3H Lab 06/23/25 17:30 Completed Troponin I Q3H Lab 06/23/25 22:38 Completed VBG [Venous Blood Gas] Stat RT 06/23/25 14:19 Completed MDM Narrative Medical Decision Narrative: In summary, patient is a 75-year-old female PMHx COPD (2L NC), CKD, diabetes, hyperlipidemia history of tobacco use, history of hyperkalemia, hypertension who presents to the ED with complaints of shortness of breath. Patient states she has been short of breath since yesterday however progressive and constant. States she has been using her albuterol inhaler at home without relief. She has not had any of her daily medications this morning. Patient states although she has had COPD exacerbations in the past, this feels worse than normal. Patient denies chest pain. Denies being around anyone sick. Denies fever, chills, body aches, headache, visual disturbances, back pain, abdominal pain, nausea, vomiting, dysuria. Upon initial evaluation, patient is alert and oriented. She is hypertensive, tachycardic heart rate 109, afebrile. Audible wheezing heard without stethoscope, patient has bilateral lung sounds, wheezing in all lobes. Speaks in few sentences. Differential diagnosis includes COPD exacerbation, pulmonary embolism, ACS, dissection, pneumonia, pneumothorax, among others. Discussed with patient and daughter we will proceed with continuous DuoNebs, Solu-Medrol IV, labs and chest x-ray. We will administer her amlodipine 10 mg for hypertension. Will also administer magnesium. CBC unremarkable for any leukocytosis, stable H&H. VBG normal pH. CMP remarkable for CO2 32, anion gap 15.2, glucose 110. First troponin < 0.01. Due to heart rate and respiratory rate, patient meets sepsis criteria. Her x- ray is remarkable for pneumonia, we will administer doxycycline and Rocephin. Will forego fluid bolus at this time due to patient is euvolemic. Will continue to monitor need for IV fluids. Attempting CT scan with PE protocol, however patient is very nervous about lying flat, administering Valium 2.5 mg. Repeat troponin 0.03, I feel this is most likely related to demand ischemia vs ACS. I spoke to the radiologist who read the CTA, he wanted to ensure that we are aware that there is a lung nodule that is persistently getting bigger each time the patient has been scanned. No PE noted. I had a discussion with patient about her lung nodule, she states she was unaware that she had 1. Discussed that she will need to follow-up with pencils washer, she states she has seen Dr. Rodney before and will call to make a follow up apt. we ambulated patient with her oxygen on, her O2 sat dropped to 82% ambulating. Discussed case with hospital medicine who accepts patient to their services, she is agreeable to stay at this time. I was consulted by the OMKAR, and we discussed the complexity of the problems being addressed. I approved the treatment and management plan for this patient's care in the emergency department, thus performing a substantive portion of the medical decision making. Zafar Marie MD Puppy Trainer disclaimer Much of this encounter note is an electronic concreting supervisor spoken language to printed text. Electronic concreting supervisor of the spoken language may permit errors. Although I have reviewed the note, some errors may still exist.
--- NOTE | 2025-06-23 14:22 | PC.NURSE ---
respiratory called about VBG being sent to lab
--- NOTE | 2025-06-23 14:29 | PC.NURSE ---
patients initial O2 on room ait 74, good waveform. patient placed on 4LNC and will titrate down once oxygen saturation improves. patient also had an initial BP measurement of 232/119, repeat was done manually by Tone Rolyorni Montanez and was 190/98
[2025-06-23 14:32] LABS: Lactate Venous 1.8 mmol/L (0.4-2.0); VBG HCO3 26.7 mmol/L (23-30); VBG PCO2 48.3 mmol/L (35-51); VBG PH 7.36 mmol/L (7.31-7.41); VBG PO2 83.0 mmol/L (28-40)
--- NOTE | 2025-06-23 14:32 | PC.NURSE ---
respiratory called for continuous neb treatments
[2025-06-23 14:38] LABS: Hematocrit 42.8 % (37.0-47.0); Hemoglobin 13.0 g/dL (12.2-16.2); Immature Granulocytes % 0.3 %; Mean Corpuscular HGB Conc 30.4 g/dL (31.8-35.4); Mean Corpuscular Hemoglobin 28.1 pg (27.0-31.2); Mean Corpuscular Volume 92.6 fl (81-99); Nucleated Red Blood Cells % 0 %; Platelet Count 169 K/mm3 (142-424); Red Blood Count 4.62 M/mm3 (4.20-5.40); Red Cell Distribution Width-SD 48.3 fL; White Blood Count 7.4 K/mm3 (4.8-10.8)
[2025-06-23] MEDS: IPRATROPIUM/ALBUTEROL 3 ML NEB 9 ML IH (14:40)
[2025-06-23 14:41] LABS: Albumin Level 4.7 g/dl (3.5-5.0); Chloride 99 mmol/L (98-107); Potassium 4.2 mmoL/L (3.5-5.1); Sodium 142 mmol/L (136-145)
[2025-06-23] MEDS: METHYLPREDNISOLONE SOD SUCC 125MG VIAL 125 MG IV (14:42)
[2025-06-23] MEDS: AMLODIPINE 10MG TABLET 10 MG PO (14:42)
[2025-06-23 14:44] LABS: Alanine Aminotransferase 18 U/L (12-78); Albumin/Globulin Ratio 1.4 (1.1-1.8); Alkaline Phosphatase 69 U/L (38-126); Anion Gap 15.2 mEq/L (5-15); Aspartate Amino Transferase 33 U/L (14-36); Bilirubin,Total 0.7 mg/dl (0.2-1.3); Blood Urea Nitrogen 16 mg/dl (7-17); Calcium 9.7 mg/dl (8.4-10.2); Carbon Dioxide 32 mmol/L (22.0-30.0); Creatinine Clearance Estimated 47 mL/min (50-200); Creatinine,Serum 0.70 mg/dl (0.52-1.04); Estimated Glomerular Filt Rate 81 ml/min (>60); GFR (African American) 98 ML/MIN (>60); Globulin 3.3 g/dL (1.3-3.2); Glucose 110 mg/dl (74-100); Total Protein,Serum 8.0 g/dl (6.3-8.2)
[2025-06-23 14:53] LABS: Coronavirus 19, PCR Not Detected (NotDetected); Influenza A, PCR Not Detected (NotDetected); Influenza B, PCR Not Detected (NotDetected)
[2025-06-23 14:54] LABS: NT Pro Brain Natriuretic Pep. 264 pg/mL (0-450)
[2025-06-23 14:58] LABS: Troponin I < 0.01 ng/ml (0.00-0.034)
--- NOTE | 2025-06-23 15:09 | PC.NURSE ---
patient reported that neb treatment did not help. THRASHER FEEDER Eloina notified. orders given for continuous nebs for 1 hour. Respiratory notified.
--- OUTSIDE RECORDS SUMMARY | 2025-06-23 15:14 | XMS_ITS | CCD ---
Author Organization Unknown Care Team Providers Care Industrial Commercial Groundskeeper Name Role Phone Unavailable Primary Care Provider Unavailabl e Unavailable Chronic Care Management Unavaila ble Summary Purpose DataExchange Insurance Providers Payer name Policy type / Coverage type Covered libertarian ID Effective Begin Date Effective End Date [facility] [id number] Unknown Unknown Family History Family History data not found Medication Administered No Medication Administered data Reason For Visit No Reason For Visit data Medical Equipment No Medical Equipment data Advance Directives No Advance Directive data
[2025-06-23] MEDS: MAGNESIUM SULFATE IN WATER 2 GM/50 ML PIGGYBACK IV (15:17)
[2025-06-23] MEDS: ALBUTEROL 0.083% 2.5 MG/3 ML NEB 20 MG IH (15:25)
[2025-06-23] MEDS: DOXYCYCLINE HYCLATE 100 MG in 0.9 % SODIUM CHLORIDE 250 ML 166.67 MG IV (15:46)
--- NOTE | 2025-06-23 16:05 | PC.NURSE ---
patient feels like she needs to sit up more to breathe. provider Eloina JARAMILLO notified at this time.
--- NOTE | 2025-06-23 16:08 | CT_ITS ---
PROCEDURE INFORMATION: Exam: CTA Chest With Contrast Exam date and time: 06/23/2025 5:23 PM Age: 75 years old Clinical indication: Shortness of breath; Additional info: SOA / copd 2l nc TECHNIQUE: Imaging protocol: Computed tomographic angiography of the chest with contrast. Exam focused on the arteries. 3D rendering (Not supervised by radiologist): MIP and/or 3D reconstructed images were created by the technologist. Radiation optimization: All CT scans at this facility use at least one of these dose optimization techniques: automated exposure control; mA and/or kV adjustment per patient size (includes targeted exams where dose is matched to clinical indication); or iterative reconstruction. Contrast material: ISOVUE 370; Contrast volume: 70 ml; Contrast route: INTRAVENOUS (IV); COMPARISON: CT CHEST WO CON 04/23/2024 1:04 PM FINDINGS: Pulmonary arteries: No CT angiography evidence of pulmonary embolism. Aorta: There is moderate calcific atherosclerotic disease of the thoracic aorta without aneurysmal dilatation. Lungs: There are moderate centrilobular emphysematous changes of the lungs with an apical gradient. Right apical suspicious nodule measuring 1.5 x 0.8 x 2.2 cm, axial image 29 and increased in size from prior exam. Pleural spaces: Unremarkable. No pneumothorax. No pleural effusion. Heart: Unremarkable. No cardiomegaly. No pericardial effusion. Coronary arteries: Moderate calcific atherosclerotic disease of the LAD is present. Lymph nodes: Unremarkable. No enlarged lymph nodes. Gallbladder and biliary ducts: There are surgical clips within the gallbladder fossa. Kidneys: Multiple left renal Bosniak 1 cystic lesions having homogeneous and fluid density (-9-20 HU), no septations or calcifications, having shepherd smooth and thin. Largest measures 2.2 cm. No follow-up recommended. Bones/joints: Moderate loss of intervertebral disc space with degenerative changes involving midthoracic spine resulting in exaggerated kyphosis. Chronic appearing compression fractures involving the superior endplates of T12 and L1 with approximately 20% loss of height. Soft tissues: Unremarkable. IMPRESSION: 1. No CT angiography evidence of pulmonary embolism. 2. Right apical suspicious nodule measuring 1.5 x 0.8 x 2.2 cm, axial image 29 and increased in size from prior exam. Consider non-emergent PET/CT or tissue sampling.(Reference: David) COMMENTS: 1. Consistent with the [employer] [place] [employer]'s Incidental Findings Committee white paper (J Am Reyna Radiol 2018): Any incidental renal lesion less than 1 cm or classified as too small to characterize, or any incidental cystic renal lesion characterized as simple-appearing, is likely benign. No follow-up imaging is recommended for these lesions per consensus recommendations based on imaging criteria. 2. The presence of pulmonary emphysema on CT is an independent risk factor for lung cancer. In the absence of a history or active diagnosis of lung cancer, it is recommended that this patient with emphysema be evaluated for enrollment in a low dose CT lung cancer screening program. REFERENCES: David Kowalski, et al. Guidelines for Management of Incidental Pulmonary Nodules Detected on CT Images: From the Fleischner Society 2017. Radiology. 2017;284(1):228-243.
--- NOTE | 2025-06-23 16:26 | PC.NURSE ---
Patient going to CT
[2025-06-23] MEDS: SODIUM CHLORIDE 0.9% 10ML SYR (RAD ONLY) 10 ML IV (16:28)
[2025-06-23] MEDS: IOPAMIDOL-370 (76%);100ML BOTTLE 70 ML IV (16:28)
[2025-06-23] MEDS: 0.9 % SODIUM CHLORIDE 50 ML VIAL IV (16:28)
--- NOTE | 2025-06-23 16:30 | PC.NURSE ---
patient back from CT scan.
[2025-06-23] MEDS: diazePAM 10MG/2ML SYRINGE 2.5 MG IV ×2 (16:42→17:21)
--- NOTE | 2025-06-23 17:06 | PC.NURSE ---
patient to radiology for CT scan with rad staff.
[2025-06-23] MEDS: CEFTRIAXONE 1 GM 1 GM in 0.9 % SODIUM CHLORIDE 50 ML IV (17:27)
--- NOTE | 2025-06-23 18:10 | PC.NURSE ---
Sawyer RN called to check on the status of the pts scans. Radiology states a radiologist is locked into the scan
[2025-06-23 18:11] LABS: Troponin I 0.03 ng/ml (0.00-0.034)
--- NOTE | 2025-06-23 19:16 | PC.NURSE ---
report given to Shanice HILL, and SERGIO Wilkinson at 1910
--- NOTE | 2025-06-23 20:05 | PC.NURSE ---
report called to Janae HILL
--- NOTE | 2025-06-23 20:47 | PC.NURSE ---
Patient arrived tof praneeth via wheelchair from ED at 20:45.
--- NOTE | 2025-06-23 21:18 | P.HP_ITS ---
<Statement entered by Ronak Gill MD - 06/24/25 12:02> Personally evaluated patient and agree with plan of care as outlined by the INSOLE AND OUTSOLE SPLITTER. History of Present Illness *Admission Date: 06/23/25 *Reason for visit:: Shortness of breath *History of present illness: This is a 75-year-old female with chronic respiratory failure on 2 L nasal cannula, COPD, DM2, BILLY, CKD, CAD who presents emergency department today with complaints of shortness of breath and dyspnea that has been worse worse over the last several weeks. States that she has been using her nebulizers [id number] as well as a rescue inhaler. States that she has not been taking her daily inhaler as it does not like it helps very much. Does see Dr. Veras in the outpatient setting has not seen him in some time. She denies any fever. Does endorse mild productive sputum. States that this COPD exacerbation feels worse than her typical. Upon arrival to the emergency department she was in mild respiratory distress with tachypnea and tachycardia noted as well as significant hypertension and audible wheezing without stethoscope. She required continuous DuoNeb as well as IV mag and steroids for management of her shortness of breath. She did have improvement in symptoms and underwent CT scanning that was negative for PE. She did have lung nodule that appears to have increased since prior scan. Upon attempting to ambulate for possible discharge she had increased work of breathing with diffuse wheezing again as well as drop in O2 sat to 82% on home 2 L nasal cannula. Given this it was felt she would benefit from hospitalization. Daughter is at bedside and provides collateral that that she has had progressive worsening shortness of breath that is not responding to her breathing treatments at home. During my assessment patient has some pursed lip breathing with conversational dyspnea with scattered wheezing audible without stethoscope. O2 saturation 90% on home 2 L. Patient states she feels better than what she did when she came in but still feels like that she is not at her baseline. Lives at home alone and is nervous to be discharged secondary to difficulty breathing when she is up and ambulatory. Decision was made to place patient in hospital for further treatment [facility] Disclaimer: The information contained in this section may have been updated after the patient was seen, as this information can be updated by other users. Medical History COPD with exacerbation Rib injury URI (upper respiratory infection) Solid nodule of lung greater than 8 mm in diameter Nodule of right lung Right atrial enlargement COPD (chronic obstructive pulmonary disease) Hemorrhoid Sleep apnea Chronic cough Bronchitis History of gastroesophageal reflux (GERD) History of cataract Allergies Hyperlipidemia Cataract Dyspnea Chest pain Screening for lung cancer Pulmonary emphysema Stopped smoking with greater than 30 pack year history Peripheral eosinophilia Allergic rhinitis, unspecified Nocturnal hypoxemia Dyspnea on exertion Mild aortic stenosis Dyspnea Hypothyroidism Hx of pulmonary embolus Chronic obstructive lung disease HTN (hypertension) Surgical History History of partial hysterectomy History of colonoscopy History of carpal tunnel release H/O ventral hernia repair Family History Father Heart attack Mother Heart attack Sister Heart attack Social History (Updated 06/23/25 @ 22:20 by Janae Freeman RN) Smoking Status: Former smoker tobacco type: cigarettes years smoked: 40 alcohol intake: former counseling provided: none substance use type: denies use current occupational status: retired Travel in the last 8 weeks?: None household members: none housing: apartment current occupational exposures/hazards: No caffeine: Yes Have you lived/traveled outside [place] in past 30 days?: No Contact w/someone who lives/traveled outside US past 30 days?: No Exposure to someone with infectious disease in past 14 days?: No Do you have a fever (greater than 100.4 F or 38 C)?: No Have you tested positive for COVID-19?: No Exposed to someone with COVID-19 in past 14 days?: No Do you have a sore throat?: No Do you have a cough?: No Do you have any weakness?: No Are you experiencing any nausea/vomitting?: No Do you have any diarrhea?: No Are you experiencing any unusual bleeding?: No Do you have any muscle aches/pain?: No Do you have any abdominal pain?: No Are you experiencing loss of taste or smell?: No Other Medical History Have you received the Flu Vaccine for this season: Yes Have you received the Pneumonia Vaccine: Yes Review of Systems Review of Systems Review of systems:: pertinent systems reviewed and negative unless documented below Review of systems (narrative): Negative except for HPI Meds Home Medications and Allergies Home Medications ?Medication ?Instructions ?Recorded ?Confirmed ?Type hydrochlorothiazide 12.5 mg tablet 12.5 mg PO DAILY 04/10/25 History blood sugar diagnostic (Blood #25 ea 09/15/23 06/23/25 Rx Glucose Test strips) blood-glucose meter (Blood Glucose #1 ea 09/15/2306/10 Rx Monitoring kit) lancets (Accu-Chek Softclix #100 ea 09/15/23 06/23/25 Rx Lancets) ibuprofen 600 mg tablet 600 mg PO 09/26/23 04/10/25 History azelastine 205.5 mcg (0.15 %) 2 spray intranasal BID 9 0 days #30 05/24/24 04/10/25 Rx nasal spray mL budesonide 160 mcg-glycopyr 9 See Rx Instructions .Rou te 06/13/24 04/10/25 Rx mcg-formot 4.8 mcg/actuation HFA .COMPLEX #33 grams inhaler (Breztri Aerosphere) cholecalciferol (vitamin D3) 250 250 mcg PO DAILY #90 caps 11/07/24 04/10/25 Rx mcg (10,000 unit) capsule ezetimibe 10 mg tablet (Zetia) 10 mg PO DAILY #30 tabs 11/12/24 04/10/25 Rx glipizide 2.5 mg tablet 2.5 mg PO DAILY #30 tabs 06/23/25 Rx montelukast 10 mg tablet 10 mg PO DAILY 90 days #90 t abs 01/08/25 06/23/25 Rx pravastatin 40 mg tablet 80 mg (2 x 40 mg) PO DAILY 9 0 days 02/14/25 06/23/25 Rx #180 tabs omeprazole 40 mg capsule,delayed See Rx Instructions . Route 04/19/25 06/23/25 Rx release .COMPLEX Reflux/Acid reflux #90 caps levothyroxine 100 mcg tablet 100 mcg PO DAILY thyroid #90 tabs 05/06/25 06/23/25 Rx albuterol sulfate 90 mcg/actuation 2 inh inhalation Q6 PRN shortness 06/23/25 06/23/25 History aerosol inhaler of breath or wheezing amlodipine 5 mg tablet 5 mg PO DAILY 06/23/2506/23 History bisoprolol fumarate 5 mg tablet 5 mg PO DAILY 06/23/25 06/23/25 History ipratropium 0.5 mg-albuterol 3 mg 3 ml inhalation Q8 P RN SOA 06/23/25 06/23/25 History (2.5 mg base)/3 mL nebulization soln losartan 100 mg tablet 100 mg PO DAILY 06/23/25 History New Prescriptions to Start Prescriptions: Allergies Allergy/AdvReac Type Severity Reaction Status Date / Time lisinopril (LISINOPRIL) Allergy ITCH Verified 04/10/25 16:19 Exam Data for Last 24 hours Vital signs and Labs for Last 24 Hours: Temp Pulse Resp BP Pulse Ox O2 Del Method O2 Flow Rate 97.7 F 117 H 18 154/64 H 94 L Nasal Cannula 2 06/23/25 21:01 06/23/25 21:01 06/23/25 21:01 06/23/25 21:01 06/23/25 21:01 06/23/25 21:01 06/23/25 21:01 Laboratory Results - last 24 hr 06/23/25 14:15: WBC 7.4, RBC 4.62, Hgb 13.0, Hct 42.8, MCV 92.6, MCH 28.1, MCHC 30.4 L, RDW 14.2, Plt Count 169, MPV 12.1 H, Neut % (Auto) 56.1, Lymph % (Auto) 19.3, [place] % (Auto) 8.2, Eos % (Auto) 14.7 H, Baso % (Auto) 1.4, Neut # (Auto) 4.1, Lymph # (Auto) 1.4, [place] # (Auto) 0.6, Eos # (Auto) 1.1 H, Baso # (Auto) 0.1, Sodium 142, Potassium 4.2, Chloride 99, Carbon Dioxide 32 H, Anion Gap 15.2 H, BUN 16, Creatinine 0.70, Estimated Creat Clear 47, Estimated GFR 81, Est GFR ( Amer) 98, Glucose 110 H, Calcium 9.7, Total Bilirubin 0.7, AST 33, ALT 18, Alkaline Phosphatase 69, Troponin I < 0.01, NT-Pro-B Natriuret Pep 264, Total Protein 8.0, Albumin 4.7, Globulin 3.3 H, Albumin/Globulin Ratio 1.4, SARS-CoV-2 (PCR) Not detected, Influenza A Untype (PCR) Not detected, Influenza Type B (PCR) Not detected 06/23/25 14:19: VBG pH 7.36, VBG pCO2 48.3, VBG pO2 83.0 H, VBG HCO3 26.7, VBG Total CO2 28.2 H, VBG O2 Saturation 96.5 H, VBG Base Excess 1.3, VBG Lactic Acid 1.8 06/23/25 17:30: Troponin I 0.03 I & O for Last 24 hours: Intake & Output 06/20/25 06/21/25 06/22/25 06/23/25 23:59 23:59 23:59 23:59 Intake Total 350.000 / 350.000 Balance 350.000 / 350.000 Weight 70.08 kg Constitutional Constitutional: no acute distress *Routine HEENT Exam Head: Present normocephalic Eye: Present EOMI and PERRL ENT: Present mucous membranes moist *Routine Neck Exam Neck: Present supple; Absent lymphadenopathy *Routine Respiratory Exam Respiratory: Present prolonged expiratory phase, wheezes and crackles *Routine Cardiovascular Exam Cardiovascular: Present RRR *Routine Abdominal Exam Abdominal: Present soft and normoactive bowel sounds; Absent tenderness *Routine Rectal Exam Rectal:: deferred *Routine Genitalia Exam Genitalia:: deferred *Routine Extremities Exam Extremities: Absent cyanosis, clubbing or edema *Routine Skin Exam Skin: Present warm; Absent rash *Routine Neurological Exam Neurological: Present alert and oriented X3 Assessment and Plan *Assessment and plan (1) COPD exacerbation: Status: Acute Category: Medical Code(s): J44.1 - Chronic obstructive pulmonary disease with (acute) exacerbation (2) Chronic kidney disease, stage 3a: Status: Acute Category: Medical Code(s): N18.31 - Chronic kidney disease, stage 3a (3) Hyperlipidemia: Status: Acute Qualifiers: Hyperlipidemia type: mixed hyperlipidemia Qualified Code(s): E78.2 - Mixed hyperlipidemia Category: Medical Code(s): E78.5 - Hyperlipidemia, unspecified (4) BILLY (obstructive sleep apnea): Status: Chronic Category: Medical Code(s): G47.33 - Obstructive sleep apnea (adult) (pediatric) (5) CAD (coronary artery disease): Status: Chronic Qualifiers: Associated angina: without angina Coronary Disease-Associated Artery/Lesion type: [place] artery [place] vs. transplanted heart: [place] heart Qualified Code(s): I25.10 - Atherosclerotic heart disease of [place] coronary artery without angina pectoris Category: Medical Code(s): I25.10 - Atherosclerotic heart disease of [place] coronary artery without angina pectoris (6) DM type 2 (diabetes mellitus, type 2): Status: Acute Category: Medical Code(s): E11.9 - Type 2 diabetes mellitus without complications (7) Chronic respiratory failure: Status: Acute Category: Medical Code(s): J96.10 - Chronic respiratory failure, unspecified whether with hypoxia or hypercapnia Plan Admit #Acute on chronic respiratory failure hypoxia #COPD exacerbation Patient with O2 sats of 90% on home 2 L nasal cannula with ambulatory sat of 82% and increased work of breathing after steroid and nebulizer treatment. Diffuse wheezing noted on upon reassessment prior to hospitalization with mild pursed lip breathing and conversational dyspnea Will continue bronchodilators and corticosteroids. Follows with pulmonology in the outpatient setting . Has not seen him in some time. Will consult pulmonology a.m. Continue doxycycline for COPD exacerbation #Tachycardia Likely secondary to increased work of breathing and multiple nebulizer treatments. CTA negative for PE Does show increased lung nodule, follow-up with pulmonology #HLD Continue home statin #DM2 Continue sliding scale and AC and at bedtime Accu-Cheks #Hypothyroidism Continue home levothyroxine
[2025-06-23 22:01] LABS: POC Glucose,Bedside 235 gm/dL (70-110)
[2025-06-23] MEDS: METHYLPREDNISOLONE SOD SUCC 40MG VIAL 40 MG IV (22:05)
[2025-06-23] MEDS: PRAVASTATIN 40MG TAB 80 MG PO (22:05)
[2025-06-23] MEDS: humaLOG 100 UNITS/ML 10ML VIAL (SSI) SUBCUT (22:05)
[2025-06-23 23:17] LABS: Troponin I 0.05 ng/ml (0.00-0.034)
[2025-06-23] MEDS: IPRATROPIUM/ALBUTEROL 3 ML NEB IH (23:17)
[2025-06-24] VITALS (16 sets, daily range): BP systolic 99–158; BP diastolic 50–95; PULSE 58–133; RESP 18–22; TEMP 36.6–36.9; O2SAT 86–96
--- NOTE | 2025-06-24 04:01 | PC.NURSE ---
Alert and oriented. Uses bedside commode with standby assist. Patient HR sustained 100-120. O2 sat >90%, 2 L NC. Lung sounds diminished with wheezing. On exertion patient does have audible wheezes. SCDs in place. No complaints from patient throughout the night. Call light in reach.
[2025-06-24] MEDS: GUAIFENESIN/DEXTROMETHORPHAN 200MG/20MG 10ML UDC 10 ML PO (06:03)
[2025-06-24] MEDS: LEVOTHYROXINE 100MCG (0.1MG) TAB 100 MCG PO ×2 (06:04→09:08)
[2025-06-24] MEDS: IPRATROPIUM/ALBUTEROL 3 ML NEB IH ×2 (06:16→11:36)
[2025-06-24 06:25] LABS: Hematocrit 40.3 % (37.0-47.0); Hemoglobin 12.6 g/dL (12.2-16.2); Immature Granulocytes % 0.6 %; Mean Corpuscular HGB Conc 31.3 g/dL (31.8-35.4); Mean Corpuscular Hemoglobin 28.4 pg (27.0-31.2); Mean Corpuscular Volume 90.8 fl (81-99); Nucleated Red Blood Cells % 0 %; Platelet Count 182 K/mm3 (142-424); Red Blood Count 4.44 M/mm3 (4.20-5.40); Red Cell Distribution Width-SD 47.8 fL; White Blood Count 9.8 K/mm3 (4.8-10.8)
[2025-06-24 06:43] LABS: Anion Gap 13.4 mEq/L (5-15); Blood Urea Nitrogen 20 mg/dl (7-17); Calcium 9.3 mg/dl (8.4-10.2); Carbon Dioxide 29 mmol/L (22.0-30.0); Chloride 102 mmol/L (98-107); Creatinine Clearance Estimated 52 mL/min (50-200); Creatinine,Serum 0.80 mg/dl (0.52-1.04); Estimated Glomerular Filt Rate 70 ml/min (>60); GFR (African American) 84 ML/MIN (>60); Glucose 137 mg/dl (74-100); Potassium 4.4 mmoL/L (3.5-5.1); Sodium 140 mmol/L (136-145)
[2025-06-24 07:41] LABS: Total Cells Counted 100
[2025-06-24 07:42] LABS: RBC Morphology Normal
--- NOTE | 2025-06-24 07:47 | HMH.PHAINT1 ---
Pharmacy Intervention Comments: HOME MEDICATION LIST VERIFIED SUING LIST FROM OUTPATIENT PHARMACY, NOTES FROM PCP OFFICE AND PT INTERVIEW
[2025-06-24] MEDS: DOXYCYCLINE HYCL 100 MG TABLET PO (08:13)
[2025-06-24] MEDS: METHYLPREDNISOLONE SOD SUCC 40MG VIAL 40 MG IV (08:13)
[2025-06-24] MEDS: AMLODIPINE 5MG TABLET 5 MG PO (09:07)
[2025-06-24] MEDS: IRBESARTAN 150MG TAB 150 MG PO (09:07)
[2025-06-24] MEDS: BISOPROLOL 5MG TABLET 5 MG PO (09:08)
--- NOTE | 2025-06-24 09:48 | CA_ITS ---
APPROVED REPORT EXAM: Comprehensive 2D, Doppler, and color-flow Echocardiogram Donor Specialist: Marilyn Napier RVT Ht: 5 ft 1 in Wt: 154lbs BSA: 1.69 BP: 154/64 mmHg Indications: ELEVATED TROPONIN,DYSPENA 2D Dimensions IVSd 1.03 cm F: 0.6-1.0 LVEF (Visual) 58.70 % PWd 0.85 cm F: 0.6 - 1.0 LA Volume 27.80 mL LVDd 3.74 cm F: 3.9 - 5.3 LA Volume Index 16.45 mL/m2 (M/F) 16-34 LVDs 2.60 cm F: 2.2 - 3.5 M-Mode Dimensions LA Diam 2.62 cm (1.9-4.0) TAPSE 2.29 (<1.7) LV Diastology E Decel Time 150 (160-240 msec) E/A Ratio 0.8 Aortic Valve OG Index 1.04 cm2/m2 AoV Peak Jay. 201.0 (50-130 cm/s) AO Peak GR. 16.30 mmHg AO Mean GR. 8.60 (<5 mmHg) AO VTI 38.1 (18-25 cm) OG (VTI) 1.80 (2.5-4.5 cm2) Mitral Valve MV E Max Jay. 68.0 (40-130 cm/s) MV A Velocity 89.0 (40-130 cm/s) E/A Ratio 0.76 MV PHT 44.0 ms Pulmonary Valve PV Peak Velocity 77.0 (50-150 cm/s) Left Ventricle The left ventricle is normal size. Left ventricular systolic function is normal. The left ventricular ejection fraction is within the normal range. There is increased left ventricular wall thickness. There is normal LV segmental wall motion. Transmitral Doppler flow pattern suggests impaired LV relaxation. LVEF is 55% Right Ventricle The right ventricle is mildly dilated. The right ventricular systolic function is normal. Atria The left atrium is mildly dilated. The right atrium is mildly dilated. There is no color Doppler evidence of interatrial shunt. Aortic Valve The aortic valve is mildly thickened. There is no hemodynamically significant aortic valvular stenosis. Trace aortic regurgitation is present. Mitral Valve The mitral valve is normal in structure. No evidence of mitral valve stenosis. Mild mitral regurgitation is present. Tricuspid Valve The tricuspid valve leaflets are thin and pliable. Trace tricuspid regurgitation. There is insufficient TR jet to estimate RVSP. Pulmonic Valve The pulmonary valve is grossly normal in structure. Trace pulmonic valve regurgitation is present. Great Vessels The aortic root is normal in size. IVC is normal in size and collapses >50% with inspiration. Pericardium An epicardial fat pad is present. Trivial anterior pericardial effusion is present. No echo indications of tamponade. Other Information Study Quality: Fair Conclusion Normal biventricular systolic function. Mild RV dilation. Mild biatrial dilation. Mild MR. Trivial anterior pericardial effusion is present. No echo indications of tamponade. Electronically signed by : Tiffanie Davison MD 06/24/2025 15:51:14
--- NOTE | 2025-06-24 09:49 | P.CONCA_ITS ---
History of Present Illness History of Present Illness Consult date: 06/24/25 Requesting physician: Ronak Gill Consult reason: chest pain and shortness of breath Chief complaint: SOA, chest pain, CAD Additional Medical History:: 1. CAD is present. -[facility], 2022, Medical management with elevated LVEDP. -Diastolic dysfunction. 2. Right LE DVT and pulmonary embolus in 2017 for which she transiently took Coumadin therapy. 3. Hyperlipidemia - LDL is 86 (2022) On statin. 4. COPD -Ex smoker. -Chest CTA, 06/23/2025, no PE. There is a right apical suspicious nodule that has increased in size from prior exam, 04/2024 -Pulmonary PET scan, 05/2024, 9 mm right apical irregular nodule with faint FDG uptake below mediastinal blood pool, indeterminate. 5. Diabetes mellitus type 2 -Hemoglobin A1c, 6.3, 04/2025 6. Low vitamin D 7. Hypertension with microalbuminuria of 17.8 in December 2024 History of present illness: 75-year-old white female with known history of O2 requiring COPD, diabetes mellitus type 2 and mild to moderate coronary artery disease by cath in 2022 presented to the emergency department for increasing shortness of breath and dyspnea over the last couple of weeks. Patient did improve with nebulizers but upon walking to consider discharge her O2 sat dropped to 82% on her home [address] of the chest was negative for PE but patient was admitted for continued respiratory treatment. Troponins during the stay have noted to increase and cardiology was consulted for further evaluation. In light of the patient's cardiac risk factors we recommend proceeding with repeat cardiac catheterization. Risk, benefits and procedure explained to the patient and she agrees to proceed. EKG on admission yesterday showed sinus rhythm 103 bpm with no acute ST segment changes. [facility] Disclaimer: The information contained in this section may have been updated after the patient was seen, as this information can be updated by other users. Medical History COPD with exacerbation Rib injury URI (upper respiratory infection) Solid nodule of lung greater than 8 mm in diameter Nodule of right lung Right atrial enlargement COPD (chronic obstructive pulmonary disease) Hemorrhoid Sleep apnea Chronic cough Bronchitis History of gastroesophageal reflux (GERD) History of cataract Allergies Hyperlipidemia Cataract Dyspnea Chest pain Screening for lung cancer Pulmonary emphysema Stopped smoking with greater than 30 pack year history Peripheral eosinophilia Allergic rhinitis, unspecified Nocturnal hypoxemia Dyspnea on exertion Mild aortic stenosis Dyspnea Hypothyroidism Hx of pulmonary embolus Chronic obstructive lung disease HTN (hypertension) Surgical History History of partial hysterectomy History of colonoscopy History of carpal tunnel release H/O ventral hernia repair Family History Father Heart attack Mother Heart attack Sister Heart attack Social History (Updated 06/23/25 @ 22:20 by Janae Freeman RN) Smoking Status: Former smoker tobacco type: cigarettes years smoked: 40 alcohol intake: former counseling provided: none substance use type: denies use current occupational status: retired Travel in the last 8 weeks?: None household members: none housing: apartment current occupational exposures/hazards: No caffeine: Yes Review of Systems Review of Systems Review of systems:: pertinent systems reviewed and negative unless documented below *Cardiovascular Cardiovascular: Reports dyspnea and Reports dyspnea on exertion *Respiratory Respiratory: Reports dyspnea and Reports dyspnea on exertion Exam Data for Last 24 hours Vital signs and Labs for Last 24 Hours: Temp Pulse Resp BP Pulse Ox O2 Del Method O2 Flow Rate 98.4 F 58 L 20 133/73 96 Nasal Cannula 2 06/24/25 08:00 06/24/25 08:00 06/24/25 08:00 06/24/25 08:00 06/24/25 08:00 06/24/25 08:00 06/24/25 08:00 FiO2 28 06/23/25 23:58 Laboratory Results - last 24 hr 06/23/25 14:15: WBC 7.4, RBC 4.62, Hgb 13.0, Hct 42.8, MCV 92.6, MCH 28.1, MCHC 30.4 L, RDW 14.2, Plt Count 169, MPV 12.1 H, Neut % (Auto) 56.1, Lymph % (Auto) 19.3, [place] % (Auto) 8.2, Eos % (Auto) 14.7 H, Baso % (Auto) 1.4, Neut # (Auto) 4.1, Lymph # (Auto) 1.4, [place] # (Auto) 0.6, Eos # (Auto) 1.1 H, Baso # (Auto) 0.1, Sodium 142, Potassium 4.2, Chloride 99, Carbon Dioxide 32 H, Anion Gap 15.2 H, BUN 16, Creatinine 0.70, Estimated Creat Clear 47, Estimated GFR 81, Est GFR ( Amer) 98, Glucose 110 H, Calcium 9.7, Total Bilirubin 0.7, AST 33, ALT 18, Alkaline Phosphatase 69, Troponin I < 0.01, NT-Pro-B Natriuret Pep 264, Total Protein 8.0, Albumin 4.7, Globulin 3.3 H, Albumin/Globulin Ratio 1.4, SARS-CoV-2 (PCR) Not detected, Influenza A Untype (PCR) Not detected, Influenza Type B (PCR) Not detected 06/23/25 14:19: VBG pH 7.36, VBG pCO2 48.3, VBG pO2 83.0 H, VBG HCO3 26.7, VBG Total CO2 28.2 H, VBG O2 Saturation 96.5 H, VBG Base Excess 1.3, VBG Lactic Acid 1.8 06/23/25 17:30: Troponin I 0.03 06/23/25 21:39: POC Glucose 235 H 06/23/25 22:38: Troponin I 0.05 H 06/24/25 06:13: WBC 9.8 D, RBC 4.44, Hgb 12.6, Hct 40.3, MCV 90.8, MCH 28.4, MCHC 31.3 L, RDW 14.3, Plt Count 182, MPV 11.8 H, Neut % (Auto) 92.8 H, Lymph % (Auto) 4.7 L, [place] % (Auto) 1.8, Eos % (Auto) 0.0 L, Baso % (Auto) 0.1, Neut # (Auto) 9.1 H, Lymph # (Auto) 0.5 L, [place] # (Auto) 0.2, Eos # (Auto) 0.0, Baso # (Auto) 0.0, Total Counted 100, Neutrophils % (Manual) 89 H, Band Neutrophils % 2.0, Lymphocytes % (Manual) 7 L, Monocytes % (Manual) 1 L, Eosinophils % (Manual) 1, Platelet Estimate Normal, RBC Morphology Normal, Sodium 140, Potassium 4.4, Chloride 102, Carbon Dioxide 29, Anion Gap 13.4, BUN 20 H, Creatinine 0.80, Estimated Creat Clear 52, Estimated GFR 70, Est GFR ( Amer) 84, Glucose 137 H D, Calcium 9.3 I & O for Last 24 hours: Intake & Output 06/21/25 06/22/25 06/23/25 06/24/25 11:59 11:59 11:59 11:59 Intake Total 890.000 / 890.000 Output Total 0 / 0 Balance 890.000 / 890.000 Weight 154 lb 7.999 oz Constitutional Constitutional: no acute distress *Routine Respiratory Exam Respiratory: Present decreased breath sounds, wheezes, distant breath sounds and diminished air movement; Absent rhonchi *Routine Cardiovascular Exam Cardiovascular: Present RRR; Absent murmur, gallop or rubs *Routine Extremities Exam Extremities: Absent edema *Routine Neurological Exam Neurological: Present alert, oriented X3 and CN II-XII intact Meds Home Medications and Allergies Home Medications ?Medication ?Instructions ?Recorded ?Confirmed ?Type blood sugar diagnostic (Blood #25 ea 09/15/23 06/23/25 Rx Glucose Test strips) blood-glucose meter (Blood Glucose #1 ea 09/15/2306/10 Rx Monitoring kit) lancets (Accu-Chek Softclix #100 ea 09/15/23 06/23/25 Rx Lancets) glipizide 2.5 mg tablet 2.5 mg PO DAILY #30 tabs 06/23/25 Rx albuterol sulfate 90 mcg/actuation 2 inh inhalation Q6 PRN shortness 06/23/25 06/23/25 History aerosol inhaler of breath or wheezing amlodipine 5 mg tablet 5 mg PO DAILY 06/23/2506/23 History bisoprolol fumarate 5 mg tablet 5 mg PO DAILY 06/23/25 06/23/25 History ipratropium 0.5 mg-albuterol 3 mg 3 ml inhalation Q8 P RN Shortness 06/23/25 06/23/25 History (2.5 mg base)/3 mL nebulization Of Breath soln losartan 100 mg tablet 100 mg PO DAILY 06/23/25 History aspirin 81 mg tablet,delayed 81 mg PO DAILY #0 tabs Rx release budesonide 160 mcg-glycopyr 9 2 inh inhalation BID #5. 9 grams 06/24/25 Rx mcg-formot 4.8 mcg/actuation HFA inhaler (Breztri Aerosphere) clopidogrel 75 mg tablet 75 mg PO DAILY 30 days #30 t abs 06/24/25 Rx doxycycline hyclate 100 mg tablet 100 mg PO BID 4 days #8 tabs 06/24/25 Rx levothyroxine 100 mcg tablet 100 mcg PO DAILY 06/24/25 06/23/25 History montelukast 10 mg tablet 10 mg PO HS 06/24/25 5 History omeprazole 40 mg capsule,delayed 40 mg PO DAILY 06/24/25 History release pravastatin 80 mg tablet 80 mg PO HS 06/24/25 5 History prednisone 20 mg tablet 40 mg (2 x 20 mg) PO DAILY # 4 tabs 06/24/25 Rx New Prescriptions to Start Prescriptions: [id number] [Breztri Aerosphere] Corina Cai clopidogrel Corina Cai doxycycline hyclate Trell,Corina prednisone Trell,Corina Allergies Allergy/AdvReac Type Severity Reaction Status Date / Time lisinopril (LISINOPRIL) Allergy ITCH Verified 04/10/25 16:19 Assessment and Plan *Assessment and plan (1) COPD exacerbation: Status: Acute Category: Medical Code(s): J44.1 - Chronic obstructive pulmonary disease with (acute) exacerbation (2) Hyperlipidemia: Status: Acute Qualifiers: Hyperlipidemia type: mixed hyperlipidemia Qualified Code(s): E78.2 - Mixed hyperlipidemia Category: Medical Code(s): E78.5 - Hyperlipidemia, unspecified (3) BILLY (obstructive sleep apnea): Status: Chronic Category: Medical Code(s): G47.33 - Obstructive sleep apnea (adult) (pediatric) (4) CAD (coronary artery disease): Status: Chronic Qualifiers: Associated angina: without angina Coronary Disease-Associated Artery/Lesion type: [place] artery [place] vs. transplanted heart: [place] heart Qualified Code(s): I25.10 - Atherosclerotic heart disease of [place] coronary artery without angina pectoris Category: Medical Code(s): I25.10 - Atherosclerotic heart disease of [place] coronary artery without angina pectoris (5) DM type 2 (diabetes mellitus, type 2): Status: Acute Qualifiers: Diabetes mellitus complication detail: with other circulatory complications Diabetes mellitus complication status: with circulatory complication Diabetes mellitus intermediate insulin use: without terminal make up operator use Qualified Code(s): E11.59 - Type 2 diabetes mellitus with other circulatory complications Category: Medical Code(s): E11.9 - Type 2 diabetes mellitus without complications (6) Chronic respiratory failure: Status: Acute Qualifiers: Respiratory failure complication: hypoxia Qualified Code(s): J96.11 - Chronic respiratory failure with hypoxia Category: Medical Code(s): J96.10 - Chronic respiratory failure, unspecified whether with hypoxia or hypercapnia Plan Exertional shortness of breath with known mild to moderate CAD and now increasing troponins despite 2 antianginal medications. -Recommend proceeding with left heart catheterization -Obtain echocardiogram for assessment of EF and diastolic dysfunction #Acute on chronic respiratory failure hypoxia #COPD exacerbation Patient with O2 sats of 90% on home 2 L nasal cannula with ambulatory sat of 82% and increased work of breathing after steroid and nebulizer treatment. Diffuse wheezing noted on upon reassessment prior to hospitalization with mild pursed lip breathing and conversational dyspnea Will continue bronchodilators and corticosteroids. Follows with pulmonology in the outpatient setting . Has not seen him in some time. Will consult pulmonolo gy a.m. Continue doxycycline for COPD exacerbation #Tachycardia Likely secondary to increased work of breathing and multiple nebulizer treatments. CTA negative for PE Does show increased lung nodule, follow-up with pulmonology #HLD Continue home statin LDL 128 on 11/07/2024 #DM2 Continue sliding scale and AC and at bedtime Accu-Cheks Hemoglobin A1c 6.3 #Hypothyroidism Continue home levothyroxine Left heart cath results: Severe disease of the RCA with subsequent drug-eluting stent placement x 2. Okay for discharge home later today. Resume home medications of: Aspirin 81 mg daily Plavix 75 mg daily Amlodipine 5 mg daily Bisoprolol 5 mg daily Losartan 100 mg daily Pravastatin 80 mg daily Follow-up in our office in 1 week.
--- NOTE | 2025-06-24 09:53 | IR_ITS ---
APPROVED REPORT Patient Location: Inpatient Straight Cutter Machine: AMANDA Ortega RT (R) PROCEDURES Left heart catheterization Left ventriculogram Selective coronary angiogram Drug-eluting stent deployment to the proximal mid and distal dominant right coronary contiguous manner INDICATION Acute non-ST elevation myocardial infarction, Coronary artery disease Informed consent was obtained prior to the procedure. COMPLICATIONS NONE Estimated Blood Loss: LESS THAN 10 ML TECHNIQUE One percent lidocaine used to anesthetize the right anterior aspect of the wrist. The right radial artery was accessed via the Seldinger technique. A 6 [place] sheath was placed in the right radial artery. 2.5 mg of Verapamil, 800 mcg of nitroglycerin, 1mg Lidocaine and 5000 U Heparin were given through the arterial sheath. The JL3 catheter was also used to perform left heart catheterization, left ventriculogram and selective coronary angiogram. At the end the diagnostic angiogram therapeutic heparin is administered given a therapeutic ACT and the guide catheter was placed in the right coronary followed by Choice PT extra-support wire placed down the right coronary. A 3.5 x 38 mm [place] frontier stent was placed distally at 16 luis reducing the stenosis to 0%. A 4 mm x 30 mm [place] frontier stent was placed proximal to the for stent at still overlapping and deployed at 16 luis. MONIKA-3 flow was present before and after the procedure. After achieving excellent angiographic results the apparatus was removed the sheath was removed and hemostasis was achieved using TR banding patient was transferred to the postop boarding in stable condition ANGIOGRAPHIC RESULTS The left main artery Normal The left anterior descending artery Has proximal mild 10 to 20% luminal regularities with mid vessel 10% luminal regularities The circumflex artery Nondominant with 30% stenosis and a small ramus intermedius and 10 to 20% luminal regularities throughout The right coronary artery Large and dominant has proximal 50% followed by mid vessel 80% stenosis with additional 50% followed by additional distal 60 to 70% stenosis The MCLAUGHLIN ventriculogram reveals Not performed The left ventricular end-diastolic pressure Not measured IMPRESSION Severe single-vessel coronary disease as described above Successful stenting of the proximal mid and distal dominant right coronary severe disease reduced to 0% with 2 contiguous drug-eluting stents PLAN 1. Dual antiplatelet therapy 2. Cardiac rehabilitation 3. Avoidance of tobacco products 4. Risk factor modification 5. LDL less than 55 to proceed with high intensity statin Electronically signed by : Robert Chambers MD 06/24/2025 12:47:08
[2025-06-24 11:44] LABS: Adenovirus,PCR Not Detected (NotDetected); Chlamydophila Pneumoniae, PCR Not Detected (NotDetected); Coronavirus 19, PCR Not Detected (NotDetected); Coronovirus HKU1,PCR Not Detected (NotDetected); Influenza A, PCR Not Detected (NotDetected); Influenza AH1, 2009 Not Detected (NotDetected); Influenza AH1, PCR Not Detected (NotDetected); Influenza AH3,PCR Not Detected (NotDetected); Influenza B, PCR Not Detected (NotDetected); Mycoplasma Pneumoniae, PCR Not Detected (NotDetected); Parainfluenza 1, PCR Not Detected (NotDetected); Parainfluenza 2, PCR Not Detected (NotDetected); Parainfluenza 3, PCR Not Detected (NotDetected); Parainfluenza 4, PCR Not Detected (NotDetected)
[2025-06-24 11:47] LABS: POC Glucose,Bedside 124 gm/dL (70-110)
[2025-06-24] MEDS: HEPARIN 1,000 UNITS/500ML NS (CATH LAB) 3000 UNIT IV (12:16)
[2025-06-24] MEDS: LIDOCAINE 1% 10ML MDV 10 ML IJ (12:18)
[2025-06-24] MEDS: VERAPAMIL 2.5MG/ML 2ML VIAL 2.5 MG IV (12:18)
[2025-06-24] MEDS: 0.9 % SODIUM CHLORIDE 500 ML 25 ML IV (12:19)
[2025-06-24] MEDS: NITROGLYCERIN 800MCG/8ML SYR (CATH LAB) 800 MCG IA (12:20)
[2025-06-24] MEDS: HEPARIN 1,000 UNITS/ML 10ML VIAL (CATH LAB) 5000 UNIT IV (12:20)
[2025-06-24] MEDS: FENTANYL 100MCG/2ML VIAL 50 MCG IV (12:21)
[2025-06-24] MEDS: MIDAZOLAM HCL 1MG/ML 5ML VIAL 1 MG IV (12:21)
--- NOTE | 2025-06-24 12:46 | SUR.PHASEII ---
pateint recovered on cathlab table, see merge for vitals
[2025-06-24] MEDS: IOPAMIDOL-370 (76%);100ML BOTTLE 60 ML IV (13:18)
[2025-06-24 13:27] LABS: CATHL Activated Clotting Time 210 SEC (74-125)
--- NOTE | 2025-06-24 14:13 | P.DS_ITS ---
<Statement entered by Ronak Gill MD - 06/26/25 12:44> Agree with the plan as outlined by the METAL CONTROL WORKER. General Admission date:: 06/23/25 Discharge date: 06/24/25 HPI HPI HPI: This is a 75-year-old female with chronic respiratory failure on 2 L nasal cannula, COPD, DM2, BILLY, CKD, CAD who presents emergency department today with complaints of shortness of breath and dyspnea that has been worse worse over the last several weeks. States that she has been using her nebulizers [id number] as well as a rescue inhaler. States that she has not been taking her daily inhaler as it does not like it helps very much. Does see Dr. Veras in the outpatient setting has not seen him in some time. She denies any fever. Does endorse mild productive sputum. States that this COPD exacerbation feels worse than her typical. Upon arrival to the emergency department she was in mild respiratory distress with tachypnea and tachycardia noted as well as significant hypertension and audible wheezing without stethoscope. She required continuous DuoNeb as well as IV mag and steroids for management of her shortness of breath. She did have improvement in symptoms and underwent CT scanning that was negative for PE. She did have lung nodule that appears to have increased since prior scan. Upon attempting to ambulate for possible discharge she had increased work of breathing with diffuse wheezing again as well as drop in O2 sat to 82% on home 2 L nasal cannula. Given this it was felt she would benefit from hospitalization. Daughter is at bedside and provides collateral that that she has had progressive worsening shortness of breath that is not responding to her breathing treatments at home. During my assessment patient has some pursed lip breathing with conversational d yspnea with scattered wheezing audible without stethoscope. O2 saturation 90% on home 2 L. Patient states she feels better than what she did when she came in but still feels like that she is not at her baseline. Lives at home alone and is nervous to be discharged secondary to difficulty breathing when she is up and ambulatory. Decision was made to place patient in hospital for further treatment Hospital Course Hospital Course Hospital Course: Ms. Pierre is a 75-year-old female who presented to the emergency department yesterday evening with complaints of increasing shortness of breath and wheezing, that has worsened over the last few weeks. She has a primary medical history of chronic respiratory failure with COPD and baseline 2 L nasal cannula, BILLY, chronic kidney disease, CAD, type 2 diabetes. She stated that she has been using her nebulizers and rescue inhaler multiple times daily and throughout the night. She states she does have a Breztri inhaler at home but states that she does not like it. She has previously seen our cardiology and pulmonology teams at [facility] but has not returned to their clinics recently. When she presented to the emergency department she was in mild respiratory distress with tachypnea and tachycardia noted. She was audibly wheezing without use of stethoscope. Patient did receive continuous DuoNebs, IV magnesium and steroids. CT scan was negative for a PE but did show a lung nodule which had increased in size since previous scan. Patient was considered for discharge home but upon ambulation O2 saturation dropped to 82% on her home 2 L nasal cannula. Hospital medicine was consulted for admission for COPD exacerbation. Incidentally patient's troponins were also elevated trending to 0.05. Patient did deny chest pain but complained of increased fatigue, weakness, dyspnea that had worsened over the past 3 to 4 weeks. Pulmonology and cardiology were consulted in the inpatient setting. Patient was started on Solu-Medrol 125 mg IV and doxycycline twice daily. Scheduled DuoNebs every 6 hours. Patient feels much better day of discharge and is ready to return home. She has faint expiratory wheezing noted in the upper lobes of her lungs. Patient will continue prednisone 40 mg for more days at discharge. Doxycycline twice daily for 4 more days at discharge. Patient should follow-up with pulmonology outpatient for evaluation of lung nodule that has increased in size. Discussed with patient the need for a daily inhaler, she is amendable to trying Breztri again. Will discharge patient home with Breztri twice daily. Patient should follow-up with pulmonology within 3 to 4 weeks. Cardiology was consulted during admission who suggested a left heart cath due to symptoms and elevated troponin. LHC revealed two-vessel disease and patient received 2 SOFIYA. Patient will be discharged home on Plavix 75 mg daily and aspirin 81 mg daily. Patient should continue pravastatin 80 mg at bedtime, losartan 100 mg p.o. daily, amlodipine 5 mg daily, and bisoprolol 5 mg daily. Patient will follow-up with the cardiology office within 1 week. Patient should continue Singulair 10 mg at bedtime, omeprazole 40 mg daily, levothyroxine 100 mcg daily, glipizide 2.5 mg daily at discharge. Total time spent on discharge 44 minutes in counseling, documentation, chart review, and direct care with patient. Exam Data for Last 24 hours Vital signs and Labs for Last 24 Hours: Temp Pulse Resp BP Pulse Ox O2 Del Method O2 Flow Rate 98.4 F 93 H 22 140/73 93 L Nasal Cannula 2 06/24/25 08:00 06/24/25 12:00 06/24/25 11:59 06/24/25 11:59 06/24/25 11:59 06/24/25 11:58 06/24/25 11:58 FiO2 28 06/23/25 23:58 Laboratory Results - last 24 hr 06/23/25 14:15: WBC 7.4, RBC 4.62, Hgb 13.0, Hct 42.8, MCV 92.6, MCH 28.1, MCHC 30.4 L, RDW 14.2, Plt Count 169, MPV 12.1 H, Neut % (Auto) 56.1, Lymph % (Auto) 19.3, [place] % (Auto) 8.2, Eos % (Auto) 14.7 H, Baso % (Auto) 1.4, Neut # (Auto) 4.1, Lymph # (Auto) 1.4, [place] # (Auto) 0.6, Eos # (Auto) 1.1 H, Baso # (Auto) 0.1, Sodium 142, Potassium 4.2, Chloride 99, Carbon Dioxide 32 H, Anion Gap 15.2 H, BUN 16, Creatinine 0.70, Estimated Creat Clear 47, Estimated GFR 81, Est GFR ( Amer) 98, Glucose 110 H, Calcium 9.7, Total Bilirubin 0.7, AST 33, ALT 18, Alkaline Phosphatase 69, Troponin I < 0.01, NT-Pro-B Natriuret Pep 264, Total Protein 8.0, Albumin 4.7, Globulin 3.3 H, Albumin/Globulin Ratio 1.4, SARS-CoV-2 (PCR) Not detected, Influenza A Untype (PCR) Not detected, Influenza Type B (PCR) Not detected 06/23/25 14:19: VBG pH 7.36, VBG pCO2 48.3, VBG pO2 83.0 H, VBG HCO3 26.7, VBG Total CO2 28.2 H, VBG O2 Saturation 96.5 H, VBG Base Excess 1.3, VBG Lactic Acid 1.8 06/23/25 17:30: Troponin I 0.03 06/23/25 21:39: POC Glucose 235 H 06/23/25 22:38: Troponin I 0.05 H 06/24/25 06:13: WBC 9.8 D, RBC 4.44, Hgb 12.6, Hct 40.3, MCV 90.8, MCH 28.4, MCHC 31.3 L, RDW 14.3, Plt Count 182, MPV 11.8 H, Neut % (Auto) 92.8 H, Lymph % (Auto) 4.7 L, [place] % (Auto) 1.8, Eos % (Auto) 0.0 L, Baso % (Auto) 0.1, Neut # (Auto) 9.1 H, Lymph # (Auto) 0.5 L, [place] # (Auto) 0.2, Eos # (Auto) 0.0, Baso # (Auto) 0.0, Total Counted 100, Neutrophils % (Manual) 89 H, Band Neutrophils % 2.0, Lymphocytes % (Manual) 7 L, Monocytes % (Manual) 1 L, Eosinophils % (Manual) 1, Platelet Estimate Normal, RBC Morphology Normal, Sodium 140, Potassium 4.4, Chloride 102, Carbon Dioxide 29, Anion Gap 13.4, BUN 20 H, Crea tinine 0.80, Estimated Creat Clear 52, Estimated GFR 70, Est GFR ( Amer) 84, Glucose 137 H D, Calcium 9.3 06/24/25 11:37: POC Glucose 124 H 06/24/25 12:17: Activated Clotting Time 210 H* I & O for Last 24 hours: Intake & Output 06/21/25 06/22/25 06/23/25 06/24/25 23:59 23:59 23:59 23:59 Intake Total 350.000 / 530.000 550.417 / 550.417 Output Total 0 / 0 Balance 350.000 / 530.000 550.417 / 550.417 Weight 70.08 kg Constitutional Constitutional: no acute distress and cooperative *Routine HEENT Exam Head: Present normocephalic Eye: Present EOMI ENT: Present mucous membranes moist *Routine Neck Exam Neck: Present supple and full ROM; Absent JVD or lymphadenopathy *Routine Respiratory Exam Respiratory: Present wheezes (Expiratory), diminished air movement, normal respiratory effort, able to speak in complete sentences and symmetric chest movement; Absent crackles *Routine Cardiovascular Exam Cardiovascular: Present RRR, Normal S1 and Normal S2; Absent murmur *Routine Abdominal Exam Abdominal: Present soft and normoactive bowel sounds; Absent tenderness or distended *Routine Extremities Exam Extremities: Present full ROM, pulses intact and normal capillary refill; Absent clubbing or edema *Routine Skin Exam Skin: Present intact and dry *Routine Neurological Exam Neurological: Present alert, oriented X3, vision grossly intact, hearing grossly intact and normal speech Results Data Completed and Pending Labs on day of discharge: Labs from last 24 hours 06/24/25 06/24/25 06/24/25 12:17 11:37 06:13 WBC 9.8 D RBC 4.44 Hgb 12.6 Hct 40.3 MCV 90.8 MCH 28.4 MCHC 31.3 L RDW 14.3 Plt Count 182 MPV 11.8 H Neut % (Auto) 92.8 H Lymph % (Auto) 4.7 L [place] % (Auto) 1.8 Eos % (Auto) 0.0 L Baso % (Auto) 0.1 Neut # (Auto) 9.1 H Lymph # (Auto) 0.5 L [place] # (Auto) 0.2 Eos # (Auto) 0.0 Baso # (Auto) 0.0 Total Counted 100 Neutrophils % (Manual) 89 H Band Neutrophils % 2.0 Lymphocytes % (Manual) 7 L Monocytes % (Manual) 1 L Eosinophils % (Manual) 1 Platelet Estimate Normal RBC Morphology Normal Activated Clotting Time 210 H* VBG pH VBG pCO2 VBG pO2 VBG HCO3 VBG Total CO2 VBG O2 Saturation VBG Base Excess VBG Lactic Acid Sodium 140 Potassium 4.4 Chloride 102 Carbon Dioxide 29 Anion Gap 13.4 BUN 20 H Creatinine 0.80 Estimated Creat Clear 52 Estimated GFR 70 Est GFR ( Amer) 84 Glucose 137 H D POC Glucose 124 H Calcium 9.3 Total Bilirubin AST ALT Alkaline Phosphatase Troponin I NT-Pro-B Natriuret Pep Total Protein Albumin Globulin Albumin/Globulin Ratio SARS-CoV-2 (PCR) Influenza A Untype (PCR) Influenza Type B (PCR) 06/23/25 06/23/25 06/23/25 22:38 21:39 17:30 WBC RBC Hgb Hct MCV MCH MCHC RDW Plt Count MPV Neut % (Auto) Lymph % (Auto) [place] % (Auto) Eos % (Auto) Baso % (Auto) Neut # (Auto) Lymph # (Auto) [place] # (Auto) Eos # (Auto) Baso # (Auto) Total Counted Neutrophils % (Manual) Band Neutrophils % Lymphocytes % (Manual) Monocytes % (Manual) Eosinophils % (Manual) Platelet Estimate RBC Morphology Activated Clotting Time VBG pH VBG pCO2 VBG pO2 VBG HCO3 VBG Total CO2 VBG O2 Saturation VBG Base Excess VBG Lactic Acid Sodium Potassium Chloride Carbon Dioxide Anion Gap BUN Creatinine Estimated Creat Clear Estimated GFR Est GFR ( Amer) Glucose POC Glucose 235 H Calcium Total Bilirubin AST ALT Alkaline Phosphatase Troponin I 0.05 H 0.03 NT-Pro-B Natriuret Pep Total Protein Albumin Globulin Albumin/Globulin Ratio SARS-CoV-2 (PCR) Influenza A Untype (PCR) Influenza Type B (PCR) 06/23/25 06/23/25 14:19 14:15 WBC 7.4 RBC 4.62 Hgb 13.0 Hct 42.8 MCV 92.6 MCH 28.1 MCHC 30.4 L RDW 14.2 Plt Count 169 MPV 12.1 H Neut % (Auto) 56.1 Lymph % (Auto) 19.3 [place] % (Auto) 8.2 Eos % (Auto) 14.7 H Baso % (Auto) 1.4 Neut # (Auto) 4.1 Lymph # (Auto) 1.4 [place] # (Auto) 0.6 Eos # (Auto) 1.1 H Baso # (Auto) 0.1 Total Counted Neutrophils % (Manual) Band Neutrophils % Lymphocytes % (Manual) Monocytes % (Manual) Eosinophils % (Manual) Platelet Estimate RBC Morphology Activated Clotting Time VBG pH 7.36 VBG pCO2 48.3 VBG pO2 83.0 H VBG HCO3 26.7 VBG Total CO2 28.2 H VBG O2 Saturation 96.5 H VBG Base Excess 1.3 VBG Lactic Acid 1.8 Sodium 142 Potassium 4.2 Chloride 99 Carbon Dioxide 32 H Anion Gap 15.2 H BUN 16 Creatinine 0.70 Estimated Creat Clear 47 Estimated GFR 81 Est GFR ( Amer) 98 Glucose 110 H POC Glucose Calcium 9.7 Total Bilirubin 0.7 AST 33 ALT 18 Alkaline Phosphatase 69 Troponin I < 0.01 NT-Pro-B Natriuret Pep 264 Total Protein 8.0 Albumin 4.7 Globulin 3.3 H Albumin/Globulin Ratio 1.4 SARS-CoV-2 (PCR) Not detected Influenza A Untype (PCR) Not detected Influenza Type B (PCR) Not detected DS: Diagnosis Discharge Diagnosis (1) COPD exacerbation: Status: Acute Code(s): J44.1 - Chronic obstructive pulmonary disease with (acute) exacerbation (2) Hyperlipidemia: Status: Acute Code(s): E78.5 - Hyperlipidemia, unspecified Qualifiers: Hyperlipidemia type: mixed hyperlipidemia Qualified Code(s): E78.2 - Mixed hyperlipidemia (3) BILLY (obstructive sleep apnea): Status: Chronic Code(s): G47.33 - Obstructive sleep apnea (adult) (pediatric) (4) CAD (coronary artery disease): Status: Chronic Code(s): I25.10 - Atherosclerotic heart disease of [place] coronary artery without angina pectoris Qualifiers: Associated angina: without angina Coronary Disease-Associated Artery/Lesion type: [place] artery [place] vs. transplanted heart: [place] heart Qualified Code(s): I25.10 - Atherosclerotic heart disease of [place] coronary artery without angina pectoris (5) DM type 2 (diabetes mellitus, type 2): Status: Acute Code(s): E11.9 - Type 2 diabetes mellitus without complications Qualifiers: Diabetes mellitus complication detail: with other circulatory complic ations Diabetes mellitus complication status: with circulatory complication Diabetes mellitus detention insulin use: without head kiln operator use Qualified Code(s): E11.59 - Type 2 diabetes mellitus with other circulatory complications (6) Chronic respiratory failure: Status: Acute Code(s): J96.10 - Chronic respiratory failure, unspecified whether with hypoxia or hypercapnia Qualifiers: Respiratory failure complication: hypoxia Qualified Code(s): J96.11 - Chronic respiratory failure with hypoxia (7) Elevated troponin: Status: Acute Code(s): R79.89 - Other specified abnormal findings of blood chemistry (8) S/P coronary artery stent placement: Status: Acute Code(s): Z95.5 - Presence of coronary angioplasty implant and graft Meds Home Medications and Allergies Home Medications ?Medication ?Instructions ?Recorded ?Confirmed ?Type blood sugar diagnostic (Blood #25 ea 09/15/23 06/23/25 Rx Glucose Test strips) blood-glucose meter (Blood Glucose #1 ea 09/15/2306/10 Rx Monitoring kit) lancets (Accu-Chek Softclix #100 ea 09/15/23 06/23/25 Rx Lancets) glipizide 2.5 mg tablet 2.5 mg PO DAILY #30 tabs 06/23/25 Rx albuterol sulfate 90 mcg/actuation 2 inh inhalation Q6 PRN shortness 06/23/25 06/23/25 History aerosol inhaler of breath or wheezing amlodipine 5 mg tablet 5 mg PO DAILY 06/23/2506/23 History bisoprolol fumarate 5 mg tablet 5 mg PO DAILY 06/23/25 06/23/25 History ipratropium 0.5 mg-albuterol 3 mg 3 ml inhalation Q8 P RN Shortness 06/23/25 06/23/25 History (2.5 mg base)/3 mL nebulization Of Breath soln losartan 100 mg tablet 100 mg PO DAILY 06/23/25 History aspirin 81 mg tablet,delayed 81 mg PO DAILY #0 tabs Rx release budesonide 160 mcg-glycopyr 9 2 inh inhalation BID #5. 9 grams 06/24/25 Rx mcg-formot 4.8 mcg/actuation HFA inhaler (Breztri Aerosphere) clopidogrel 75 mg tablet 75 mg PO DAILY 30 days #30 t abs 06/24/25 Rx doxycycline hyclate 100 mg tablet 100 mg PO BID 4 days #8 tabs 06/24/25 Rx levothyroxine 100 mcg tablet 100 mcg PO DAILY 06/24/25 06/23/25 History montelukast 10 mg tablet 10 mg PO HS 06/24/25 5 History omeprazole 40 mg capsule,delayed 40 mg PO DAILY 06/24/25 History release pravastatin 80 mg tablet 80 mg PO HS 06/24/25 5 History prednisone 20 mg tablet 40 mg (2 x 20 mg) PO DAILY # 4 tabs 06/24/25 Rx New Prescriptions to Start Prescriptions: anihfuxmpc-vwpexbaw-pjujgwfuyt [Breztri Aerosphere] Corina Cai,Corina doxycycline hyclate [place],Corina prednisone [place],Corina Allergies Allergy/AdvReac Type Severity Reaction Status Date / Time lisinopril (LISINOPRIL) Allergy ITCH Verified 04/10/25 16:19 Discharge Plan Disposition Patient Disposition: Home, Self-Care Condition: Fair Follow up Plan Follow up with: Everett Wilks APRN [Primary Care Provider, Family Practice] - 07/02/25 10:20 am Kane Cai PA [Physician Ship'S Electronic Warfare Officer, Cardiology] - 07/08/25 3:00 pm Annalisa Culp MD [Physician, Pulmonology] - 07/22/25 1:00 pm Prescriptions/Medication Reconciliation: New clopidogrel 75 mg Tablet 75 mg PO DAILY 30 Days Qty: 30 0RF aspirin 81 mg Tablet,Delayed Release (Dr/Ec) 81 mg PO DAILY Qty: 0 0RF Breztri Aerosphere 160-9-4.8 mcg/actuation HFA aerosol inhaler 2 inh inhalation BID Qty: 5.9 0RF prednisone 20 mg tablet 40 mg PO DAILY Qty: 4 0RF doxycycline hyclate 100 mg Tablet 100 mg PO BID 4 Days Qty: 8 0RF Continued glipizide 2.5 mg tablet 2.5 mg PO DAILY Qty: 30 2RF (DME) Blood Glucose Test Strip See Rx Instructions .Route Qty: 25 0RF Rx Instructions: As directed (DME) lancets [Accu-Chek Softclix Lancets] [facility] [place] See Rx Instructions .Route Qty: 100 0RF Rx Instructions: As directed (DME) blood-glucose meter [Blood Glucose Monitoring] Kit See Rx Instructions .Route Qty: 1 0RF Rx Instructions: As directed ipratropium-albuterol 0.5 mg-3 mg(2.5 mg base)/3 mL solution for nebulization 3 ml inhalation Q8 PRN (Reason: Shortness Of Breath) Rx Instructions: USE 1 AMPULE IN NEBULIZER EVERY 8 HOURS FOR BREATHING PROBLEMS amlodipine 5 mg tablet 5 mg PO DAILY Rx Instructions: Take 1 tablet by mouth once daily bisoprolol fumarate 5 mg tablet 5 mg PO DAILY Rx Instructions: TAKE 1 TABLET BY MOUTH ONCE DAILY FOR HIGH BLOOD PRESSURE albuterol sulfate 90 mcg/actuation HFA aerosol inhaler 2 inh inhalation Q6 PRN (Reason: shortness of breath or wheezing) Rx Instructions: INHALE 2 PUFFS BY MOUTH EVERY 6 HOURS FOR BREATHING PROBLEMS PRN; losartan 100 mg tablet 100 mg PO DAILY Rx Instructions: Take 1 tablet by mouth once daily for blood pressure pravastatin 80 mg tablet 80 mg PO HS omeprazole 40 mg capsule,delayed release(DR/EC) 40 mg PO DAILY levothyroxine 100 mcg tablet 100 mcg PO DAILY montelukast 10 mg tablet 10 mg PO HS Problem Reconciliation Problems Reviewed?: Yes Patient Discharge Instructions ACTIVITY: No heavy lifting DIET: continue same diet Patient Instructions: DI for Chronic Obstructive Pulmonary Disease Print Language: [place] Providers Primary Care Provider: Everett Wilks Admit Provider: Ronak Gill Attending Provider: Ronak Gill
--- NOTE | 2025-06-25 10:06 | SW/DCPLANNER ---
Spoke with patient on the phone. Patient stated that she is doing good. Patient stated that she is aware of her upcoming appointments. Patient stated that her family was able to get her new medicine picked [facility] from [facility]. Patient stated that she has no concerns or questions at this time. Martínez Duncan
[2025-06-25 12:56] LABS: POC Glucose,Bedside 135 gm/dL (70-110)
== END 2025-06-24 17:23 | disposition home or self-care (01) ==
LOC: ER 17:19 → 2ND 20:03
PROVIDERS: Internal Medicine; Nurse Practitioner; Nurse Practitioner Acute Care; Admitting Provider Student in an Organized Health Care Education/Training Program; Emergency Provider Student in an Organized Health Care Education/Training Program; PCP Nurse Practitioner Family; Visit Provider Student in an Organized Health Care Education/Training Program
PROC: 4A023N7 Measurement of Cardiac Sampling and Pressure, Left Heart, Percutaneous Approach (ICD-10-PCS; CPT 93452; principal; 2025-06-24 13:00)
DX: J44.1 Chronic obstructive pulmonary disease with (acute) exacerbation (principal); J96.11 Chronic respiratory failure with hypoxia; N18.31 Chronic kidney disease, stage 3a; E78.2 Mixed hyperlipidemia; G47.33 Obstructive sleep apnea (adult) (pediatric); E11.22 Type 2 diabetes mellitus with diabetic chronic kidney disease; I25.10 Atherosclerotic heart disease of native coronary artery without angina pectoris; E11.59 Type 2 diabetes mellitus with other circulatory complications; R79.89 Other specified abnormal findings of blood chemistry; Z95.5 Presence of coronary angioplasty implant and graft; I51.7 Cardiomegaly; Z86.718 Personal history of other venous thrombosis and embolism; Z79.01 Long term (current) use of anticoagulants; R91.1 Solitary pulmonary nodule; Z87.891 Personal history of nicotine dependence; Z79.82 Long term (current) use of aspirin; Z79.84 Long term (current) use of oral hypoglycemic drugs; Z79.51 Long term (current) use of inhaled steroids; Z79.52 Long term (current) use of systemic steroids; Z79.899 Other long term (current) drug therapy; Z79.4 Long term (current) use of insulin; E03.9 Hypothyroidism, unspecified; Z79.890 Hormone replacement therapy; Z88.8 Allergy status to other drugs, medicaments and biological substances
CPT/HCPCS: 0223U; 36415; 71045; 71275; 80048; 80053; 82803; 82962; 83880; 84484; 85007; 85025; 85027; 85347; 87636; 92928; 93005; 93306; 93458; 94640; 94760; 96365; 96366; 96367; 96368; 99152; 99285; C1725; C1769; C1874; C9600; G0378; J0696; J1200; J1644; J2003; J2250; J2919; J3010; J3360; J3475; J7040; J7050; Q9967

== ENCOUNTER 2025-07-15 15:26 | Outpatient (CLI) | payer MEDICARE, MEDICAID, SELFPAY ==
--- OUTSIDE RECORDS SUMMARY | 2025-07-15 15:29 | XMS_ITS | Clinical Summary ---
Author Organization [facility] Address [address] [place] [address] Care Team Providers Care Hvac Sales Representative Name Role Phone Isaac Chavez MD Primary Care Provider [phone] Family History Medical History Relation Name Comments [...] [facility]-Bone Density Scan 1948 [facility]-Depression Screening 1950 [facility]-/Child/Adol SDOH Screenings 1950 [facility]- SDOH Screenings 01/18/1966 [facility]-Adult SDOH Screenings 01/18/1966 [facility]-DTaP,Tdap,and Td Vaccines (1 - Tdap) 12/12/1996 12/11/1996 [facility]-Zoster Vaccines (1 of 2) 01/18/1998 [facility]-Pneumococcal Vaccine: 50+ Years (2 of 2 - PCV20 or PCV21) 01/18/2018 01/18/2017 [facility]-RSV Vaccine: 60+ Years or (1 - 1-dose 75+ series) 01/18/2023 [id number] Vaccine (3 - season) 2025 08/12/2021, 01/14/2021 [...] to [place] [id number] [employer] Care Teams Hvac Sales Representative Relationship Specialty Start Date End Date Isaac Chavez MD [address] [place] [address] [place] [id number] PCP - General 02/20/21
[2025-07-15 16:21] LABS: Hematocrit 38.5 % (37.0-47.0); Hemoglobin 11.8 g/dL (12.2-16.2); Immature Granulocytes % 0.5 %; Mean Corpuscular HGB Conc 30.6 g/dL (31.8-35.4); Mean Corpuscular Hemoglobin 28.6 pg (27.0-31.2); Mean Corpuscular Volume 93.4 fl (81-99); Nucleated Red Blood Cells % 0 %; Platelet Count 170 K/mm3 (142-424); Red Blood Count 4.12 M/mm3 (4.20-5.40); Red Cell Distribution Width-SD 50.3 fL; White Blood Count 6.0 K/mm3 (4.8-10.8)
--- OUTSIDE RECORDS SUMMARY | 2025-07-15 16:29 | XMS_ITS | CCD ---
Author Organization Unknown Care Team Providers Care Addictions Recovery Specialist Name Role Phone Unavailable Primary Care Provider Unavailabl e Unavailable Chronic Care Management Unavaila ble Summary Purpose DataExchange Insurance Providers Payer name Policy type / Coverage type Covered republican ID Effective Begin Date Effective End Date [facility] [id number] Unknown Unknown Family History Family History data not found Medication Administered No Medication Administered data Reason For Visit No Reason For Visit data Medical Equipment No Medical Equipment data Advance Directives No Advance Directive data
[2025-07-15 17:10] LABS: Alanine Aminotransferase 21 U/L (12-78); Albumin Level 3.9 g/dl (3.5-5.0); Alkaline Phosphatase 103 U/L (38-126); Anion Gap 8.6 mEq/L (5-15); Aspartate Amino Transferase 24 U/L (14-36); Bilirubin,Direct 0.4 mg/dl (0.0-0.4); Bilirubin,Indirect 0.1 mg/dL (0.0-0.9); Bilirubin,Total 0.5 mg/dl (0.2-1.3); Bilirubin,Unconjugated 0.2 mg/dL (0.0-1.1); Blood Urea Nitrogen 19 mg/dl (7-17); Calcium 9.0 mg/dl (8.4-10.2); Carbon Dioxide 35 mmol/L (22.0-30.0); Chloride 102 mmol/L (98-107); Cholesterol 162 mg/dl (140-200); Creatinine,Serum 0.80 mg/dl (0.52-1.04); Estimated Glomerular Filt Rate 70 ml/min (>60); GFR (African American) 84 ML/MIN (>60); Glucose 79 mg/dl (74-100); HDL Cholesterol 45 mg/dl (40-60); Potassium 4.6 mmoL/L (3.5-5.1); Sodium 141 mmol/L (136-145); Total Protein,Serum 6.3 g/dl (6.3-8.2); Triglycerides 189 mg/dl (30-150)
== END 2025-07-15 23:59 | disposition home or self-care (01) ==
LOC: LAB 15:27
PROVIDERS: PCP Nurse Practitioner Family; Visit Provider Nurse Practitioner Family
DX: I25.10 Atherosclerotic heart disease of native coronary artery without angina pectoris (principal); I10 Essential (primary) hypertension; E78.5 Hyperlipidemia, unspecified
CPT/HCPCS: 36415; 80048; 80061; 80076; 85025

== ENCOUNTER 2025-08-27 09:26 | Outpatient (CLI) | payer MEDICARE, MEDICAID, SELFPAY ==
[2025-08-26 15:11] VITALS: BMI 31.6
[2025-08-27 09:50] LABS: Hematocrit 37.2 % (37.0-47.0); Hemoglobin 11.7 g/dL (12.2-16.2); Immature Granulocytes % 0.6 %; Mean Corpuscular HGB Conc 31.5 g/dL (31.8-35.4); Mean Corpuscular Hemoglobin 29.4 pg (27.0-31.2); Mean Corpuscular Volume 93.5 fl (81-99); Nucleated Red Blood Cells % 0 %; Platelet Count 178 K/mm3 (142-424); Red Blood Count 3.98 M/mm3 (4.20-5.40); Red Cell Distribution Width-SD 49.0 fL; White Blood Count 7.2 K/mm3 (4.8-10.8)
[2025-08-27 10:03] LABS: Anion Gap 9.2 mEq/L (5-15); Blood Urea Nitrogen 20 mg/dl (7-17); Calcium 9.0 mg/dl (8.4-10.2); Carbon Dioxide 35 mmol/L (22.0-30.0); Chloride 100 mmol/L (98-107); Creatinine Clearance Estimated 55 mL/min (50-200); Creatinine,Serum 1.00 mg/dl (0.52-1.04); Estimated Glomerular Filt Rate 54 ml/min (>60); GFR (African American) 65 ML/MIN (>60); Glucose 119 mg/dl (74-100); Potassium 4.2 mmoL/L (3.5-5.1); Sodium 140 mmol/L (136-145)
--- NOTE | 2025-08-27 10:05 | XR_ITS ---
FINAL REPORT CLINICAL HISTORY: dyspnea COMPARISON: 06/23/2025 FINDINGS: 2 views of the chest were obtained . The heart is mildly enlarged. The mediastinum is within normal limits. There is scarring at the lung bases. The lungs are otherwise clear. There is no pneumothorax. Osseous structures are unremarkable. IMPRESSION: No acute cardiopulmonary process. Reviewed, Interpreted and Dictated by Jerry Acosta MD Transcribed by Rox Durham Authenticated and [facility]
--- NOTE | 2025-08-27 11:00 | CT_ITS ---
FINAL REPORT TECHNIQUE: Axial images were obtained through the chest without contrast. Multiplanar reconstructions in the sagittal and coronal planes were subsequently performed. This study was performed with techniques to keep radiation doses as low as reasonably achievable (ALARA). Individualized dose reduction techniques using automated exposure control or adjustment of mA and/or kV according to the patient's size were employed. CLINICAL HISTORY: ION Bronch, soa COMPARISON: CTA chest 06/23/2025 FINDINGS: CT CHEST WITHOUT CONTRAST: There are dense calcifications in the aortic arch and the coronary arteries. Advanced changes of centrilobular emphysema are present. There is a lobular bilobed mass in the right upper lobe, that currently measures 1.9 x 1.2 x 2.2 cm in size, slightly larger than seen on the prior CTA of the chest from 06/23/2025. This is significantly larger than that seen on the prior CT of April 2024. Scarring is present in the lung bases. There is a small nodule in the posterior right middle lobe, 4 mm in size, best seen on image #40 of series 3, stable. There is a dense right lower lobe opacity measuring 1.3 cm best seen on image #169 of series 3, slightly improved. Note is made of a prior cholecystectomy. IMPRESSION: Advanced changes of centrilobular emphysema, and slight enlargement of the lobular bilobed mass in the right upper lobe. A small nodule in the posterior right middle lobe is stable, and a right lower lobe opacity is slightly smaller. Recommend PET/CT for further evaluation. Reviewed, Interpreted and Dictated by Jerry Acosta MD Transcribed by Conchita Chand Authenticated and [facility]
== END 2025-08-27 23:59 | disposition home or self-care (01) ==
LOC: PREOP 09:27
PROVIDERS: Nurse Anesthetist, Certified Registered; PCP Nurse Practitioner Family; Visit Provider Internal Medicine Pulmonary Disease
DX: Z01.810 Encounter for preprocedural cardiovascular examination (principal); Z01.811 Encounter for preprocedural respiratory examination; Z01.812 Encounter for preprocedural laboratory examination; J43.2 Centrilobular emphysema; J44.1 Chronic obstructive pulmonary disease with (acute) exacerbation; R91.1 Solitary pulmonary nodule; R91.8 Other nonspecific abnormal finding of lung field
CPT/HCPCS: 71046; 71250; 80048; 85025